=== PATIENT | female | born 1965 | race Caucasian/White ===

== ENCOUNTER 2019-04-09 09:31 | Outpatient (CLI) | payer BC, SELFPAY ==
[2019-04-09 11:51] LABS: Hemoglobin A1C 5.9 % (4.5-6.2)
[2019-04-09 12:04] LABS: Iron 266 ug/dL (50-175); Total Iron Binding Capacity 329 ug/dL (250-450)
[2019-04-09 12:12] LABS: ALT 80 U/L (12-78); AST 46 U/L (15-37); Alkaline Phosphatase 81 U/L (46-116); Anion Gap 11.5 mmol/L (3-11); BUN 11 mg/dL (7-18); Bilirubin, Total 1.6 mg/dL (0.2-1.0); CO2 27.5 mmol/L (21.0-32.0); CREATININE 0.87 mg/dL (0.55-1.02); Calcium 9.5 mg/dL (8.5-10.1); Chloride 99 mmol/L (98-107); Cholesterol 279 mg/dL (50-200); Ferritin 587 ng/mL (8-388); Glucose 109 mg/dL (70-100); HDL Cholesterol 66 mg/dL (40-60); LDL CHOLESTEROL 174 mg/dL (<100); Potassium 3.9 mmol/L (3.5-5.1); Sodium 138 mmol/L (136-145); TSH 0.34 uIU/mL (0.358-3.74); Total Protein 7.3 g/dL (6.4-8.2); Triglyceride 180 mg/dL (30-150)
[2019-04-09 12:35] LABS: FREE T4 1.39 ng/dL (0.76-1.46)
[2019-04-10 10:57] LABS: Transferrin 242 mg/dL (201-352)
== END 2019-04-09 09:51 ==
PROVIDERS: PCP Nurse Practitioner Family; Visit Provider Nurse Practitioner Family
DX: E03.9 Hypothyroidism, unspecified (principal); E78.5 Hyperlipidemia, unspecified; E83.119 Hemochromatosis, unspecified
CPT/HCPCS: 36415; 80053; 80061; 83721; 82728; 83036; 83540; 83550; 84439; 84443; 84466

== ENCOUNTER 2019-07-17 02:43 | Outpatient (CLI) | payer BC, SELFPAY ==
[2019-07-17 12:39] LABS: HCT 48.6 % (36.0-46.0); HGB 16.9 g/dL (12.0-15.5); Mean Corp. HGB Concentration 34.8 g/dL (32.0-36.0); Mean Corpuscular Hemoglobin 35.1 pg (27.0-33.0); Mean Corpuscular Volume 100.8 fL (80-95); Mean Platelet Volume 9.7 fL (8.0-11.0); Platelet Count 298 x1000/uL (130-400); RBC 4.82 m/cumm (4.00-5.20); RBC Distribution Width 12.1 % (11.7-14.6)
[2019-07-17 15:20] LABS: ALT 102 U/L (14-59); AST 69 U/L (15-37); Albumin 3.9 g/dL (3.4-5.0); Alkaline Phosphatase 89 U/L (46-116); Anion Gap 10.2 mmol/L (3-11); BUN 13 mg/dL (7-18); Bilirubin, Total 1.2 mg/dL (0.2-1.0); CO2 27.8 mmol/L (21.0-32.0); CREATININE 0.93 mg/dL (0.55-1.02); Calculated LDL 153 mg/dL; Chloride 100 mmol/L (98-107); Cholesterol 244 mg/dL (50-200); Ferritin 779 ng/mL (8-388); Glucose 122 mg/dL (70-100); HDL Cholesterol 49 mg/dL (40-60); Sodium 138 mmol/L (136-145); Triglyceride 214 mg/dL (30-150)
[2019-07-17 15:43] LABS: FREE T4 1.26 ng/dL (0.76-1.46)
== END 2019-07-17 03:03 ==
PROVIDERS: PCP Nurse Practitioner Family; Visit Provider Nurse Practitioner Family
DX: E03.9 Hypothyroidism, unspecified (principal); E78.5 Hyperlipidemia, unspecified; E83.119 Hemochromatosis, unspecified
CPT/HCPCS: 36415; 80053; 80061; 85027; 82728; 84439; 84443

== ENCOUNTER 2019-07-27 10:23 | Outpatient (RCR) | payer BC, SELFPAY | END 2019-08-17 23:59 | LOC: INF 10:23 | PROVIDERS: PCP Nurse Practitioner Family; Visit Provider Nurse Practitioner Family | DX: E83.119 Hemochromatosis, unspecified (principal) | CPT/HCPCS: 99195 ==

== ENCOUNTER 2019-08-05 07:22 | Outpatient (CLI) | payer BC, SELFPAY ==
[2019-08-05 09:00] LABS: Abs Immature Grans 0.01 k/cumm (0.0-0.09); Absolute Basophil Count 0.07 k/cumm (0.0-0.2); Absolute Eosinophil Count 0.11 k/cumm (0.0-0.7); Absolute Monocyte Count 0.55 k/cumm (0.11-0.7); Basophils % 1.1; Eosinophils % 1.8; HGB 16.8 g/dL (12.0-15.5); Immature Grans % 0.2; Lymphocytes % 32.6; Mean Corp. HGB Concentration 34.3 g/dL (32.0-36.0); Mean Corpuscular Hemoglobin 34.6 pg (27.0-33.0); Mean Platelet Volume 8.9 fL (8.0-11.0); Neutrophils % 55.3; Platelet Count 345 x1000/uL (130-400); RBC 4.85 m/cumm (4.00-5.20); RBC Distribution Width 12.4 % (11.7-14.6); Reticulocyte 2.8 % (0.5-2.4); White Blood Cell Count 6.14 k/cumm (4.4-10.8)
[2019-08-05 09:36] LABS: Iron 269 ug/dL (50-175)
[2019-08-05 09:53] LABS: ALT 119 U/L (14-59); AST 85 U/L (15-37); Albumin 4.3 g/dL (3.4-5.0); Alkaline Phosphatase 90 U/L (46-116); Anion Gap 11.9 mmol/L (3-11); BUN 10 mg/dL (7-18); Bilirubin, Total 1.2 mg/dL (0.2-1.0); CO2 27.1 mmol/L (21.0-32.0); Calcium 9.7 mg/dL (8.5-10.1); Chloride 99 mmol/L (98-107); Ferritin 731 ng/mL (8-388); Glucose 133 mg/dL (70-100); Potassium 4.1 mmol/L (3.5-5.1); Sodium 138 mmol/L (136-145); Total Protein 7.6 g/dL (6.4-8.2)
== END 2019-08-05 07:42 ==
PROVIDERS: PCP Nurse Practitioner Family; Visit Provider Nurse Practitioner Family
DX: E83.119 Hemochromatosis, unspecified (principal)
CPT/HCPCS: 36415; 80053; 82728; 83540; 85025; 85045

== ENCOUNTER 2019-08-20 01:27 | Outpatient (CLI) | payer BC, SELFPAY ==
[2019-08-20 09:41] LABS: Mean Corpuscular Hemoglobin 35.4 pg (27.0-33.0); Mean Platelet Volume 8.8 fL (8.0-11.0); Platelet Count 307 x1000/uL (130-400); RBC 3.96 m/cumm (4.00-5.20); RBC Distribution Width 12.1 % (11.7-14.6); White Blood Cell Count 7.74 k/cumm (4.4-10.8)
[2019-08-20 10:31] LABS: Iron 176 ug/dL (50-175)
[2019-08-20 10:49] LABS: ALT 119 U/L (14-59); AST 90 U/L (15-37); Albumin 3.8 g/dL (3.4-5.0); Alkaline Phosphatase 97 U/L (46-116); Anion Gap 13.2 mmol/L (3-11); BUN 11 mg/dL (7-18); Bilirubin, Total 1.2 mg/dL (0.2-1.0); CO2 25.8 mmol/L (21.0-32.0); CREATININE 1.07 mg/dL (0.55-1.02); Calcium 8.8 mg/dL (8.5-10.1); Chloride 98 mmol/L (98-107); Estimated GFR 53.44 (mL/min/1.73m2); Ferritin 548 ng/mL (8-388); Glucose 270 mg/dL (70-100); Potassium 3.3 mmol/L (3.5-5.1); Sodium 137 mmol/L (136-145); Total Protein 6.9 g/dL (6.4-8.2)
== END 2019-08-20 01:47 ==
PROVIDERS: PCP Nurse Practitioner Family; Visit Provider Nurse Practitioner Family
DX: E83.119 Hemochromatosis, unspecified (principal)
CPT/HCPCS: 36415; 80053; 85027; 82728; 83540

== ENCOUNTER 2019-09-04 00:25 | Outpatient (CLI) | payer BC, SELFPAY ==
[2019-09-04 08:52] LABS: HGB 15.2 g/dL (12.0-15.5); Mean Corp. HGB Concentration 34.5 g/dL (32.0-36.0); Mean Corpuscular Hemoglobin 35.4 pg (27.0-33.0); Mean Corpuscular Volume 102.6 fL (80-95); Mean Platelet Volume 8.5 fL (8.0-11.0); Platelet Count 278 x1000/uL (130-400); RBC 4.29 m/cumm (4.00-5.20); RBC Distribution Width 12.7 % (11.7-14.6); White Blood Cell Count 5.57 k/cumm (4.4-10.8)
[2019-09-04 09:52] LABS: Iron 152 ug/dL (50-175)
[2019-09-04 10:05] LABS: ALT 155 U/L (14-59); AST 144 U/L (15-37); Albumin 3.9 g/dL (3.4-5.0); Alkaline Phosphatase 104 U/L (46-116); Anion Gap 11.6 mmol/L (3-11); BUN 14 mg/dL (7-18); Bilirubin, Total 0.8 mg/dL (0.2-1.0); CO2 27.4 mmol/L (21.0-32.0); CREATININE 0.87 mg/dL (0.55-1.02); Calcium 9.2 mg/dL (8.5-10.1); Chloride 102 mmol/L (98-107); Ferritin 461 ng/mL (8-388); Glucose 139 mg/dL (70-100); Potassium 4.1 mmol/L (3.5-5.1); Sodium 141 mmol/L (136-145); Total Protein 7.2 g/dL (6.4-8.2)
== END 2019-09-04 00:45 ==
PROVIDERS: PCP Nurse Practitioner Family; Visit Provider Nurse Practitioner Family
DX: E83.119 Hemochromatosis, unspecified (principal)
CPT/HCPCS: 36415; 80053; 85027; 82728; 83540

== ENCOUNTER 2019-09-11 08:56 | Outpatient (CLI) | payer BC, SELFPAY ==
[2019-09-11 10:05] LABS: HCT 43.8 % (36.0-46.0); HGB 15.2 g/dL (12.0-15.5); Mean Corp. HGB Concentration 34.7 g/dL (32.0-36.0); Mean Corpuscular Hemoglobin 35.5 pg (27.0-33.0); Mean Corpuscular Volume 102.3 fL (80-95); Mean Platelet Volume 8.9 fL (8.0-11.0); Platelet Count 294 x1000/uL (130-400); RBC 4.28 m/cumm (4.00-5.20); White Blood Cell Count 6.55 k/cumm (4.4-10.8)
[2019-09-11 11:22] LABS: ALT 156 U/L (14-59); AST 115 U/L (15-37); Albumin 3.8 g/dL (3.4-5.0); Alkaline Phosphatase 112 U/L (46-116); Anion Gap 11.9 mmol/L (3-11); BUN 12 mg/dL (7-18); Bilirubin, Total 0.9 mg/dL (0.2-1.0); CO2 27.1 mmol/L (21.0-32.0); CREATININE 0.93 mg/dL (0.55-1.02); Calcium 9.3 mg/dL (8.5-10.1); Chloride 100 mmol/L (98-107); Ferritin 318 ng/mL (8-388); Glucose 177 mg/dL (70-100); Potassium 3.9 mmol/L (3.5-5.1); Sodium 139 mmol/L (136-145); Total Protein 7.1 g/dL (6.4-8.2)
[2019-09-13 11:04] LABS: Hemoglobin A1C 5.6 % (4.5-6.2)
== END 2019-09-11 09:16 ==
PROVIDERS: PCP Nurse Practitioner Family; Visit Provider Nurse Practitioner Family
DX: R73.03 Prediabetes (principal); I10 Essential (primary) hypertension; D64.9 Anemia, unspecified; E03.9 Hypothyroidism, unspecified; E83.119 Hemochromatosis, unspecified; E89.0 Postprocedural hypothyroidism
CPT/HCPCS: 36415; 80053; 85027; 82728; 83036

== ENCOUNTER 2019-09-15 07:30 | Outpatient (RCR) | payer BC, SELFPAY | END 2019-09-17 23:59 | disposition home or self-care (01) | LOC: INF 07:30 | PROVIDERS: PCP Nurse Practitioner Family; Visit Provider Nurse Practitioner Family | DX: E83.119 Hemochromatosis, unspecified (principal) | CPT/HCPCS: 99195 ==

== ENCOUNTER 2019-09-18 00:48 | Outpatient (CLI) | payer BC, SELFPAY ==
[2019-09-18 09:46] LABS: HGB 13.5 g/dL (12.0-15.5); Mean Corp. HGB Concentration 34.6 g/dL (32.0-36.0); Mean Corpuscular Hemoglobin 35.2 pg (27.0-33.0); Mean Corpuscular Volume 101.6 fL (80-95); Platelet Count 325 x1000/uL (130-400); RBC 3.84 m/cumm (4.00-5.20); RBC Distribution Width 11.8 % (11.7-14.6); White Blood Cell Count 6.15 k/cumm (4.4-10.8)
[2019-09-18 11:03] LABS: ALT 163 U/L (14-59); AST 119 U/L (15-37); Albumin 3.8 g/dL (3.4-5.0); Alkaline Phosphatase 99 U/L (46-116); Anion Gap 11.4 mmol/L (3-11); BUN 9 mg/dL (7-18); CO2 27.6 mmol/L (21.0-32.0); CREATININE 0.86 mg/dL (0.55-1.02); Calcium 8.9 mg/dL (8.5-10.1); Chloride 99 mmol/L (98-107); Ferritin 240 ng/mL (8-388); Glucose 161 mg/dL (70-100); Potassium 3.6 mmol/L (3.5-5.1); Sodium 138 mmol/L (136-145); Total Protein 6.7 g/dL (6.4-8.2)
== END 2019-09-18 01:08 ==
PROVIDERS: PCP Nurse Practitioner Family; Visit Provider Nurse Practitioner Family
DX: E83.119 Hemochromatosis, unspecified (principal)
CPT/HCPCS: 36415; 80053; 85027; 82728

== ENCOUNTER 2020-03-11 02:59 | Outpatient (CLI) | payer BC, SELFPAY ==
[2020-03-11 12:07] LABS: HCT 46.1 % (36.0-46.0); HGB 16.6 g/dL (12.0-15.5); Mean Corpuscular Volume 97.3 fL (80-95); Mean Platelet Volume 9.1 fL (8.0-11.0); Platelet Count 258 x1000/uL (130-400); RBC 4.74 m/cumm (4.00-5.20); RBC Distribution Width 12.1 % (11.7-14.6); White Blood Cell Count 10.64 k/cumm (4.4-10.8)
[2020-03-11 14:37] LABS: ALT 315 U/L (14-59); AST 289 U/L (15-37); Albumin 3.8 g/dL (3.4-5.0); Alkaline Phosphatase 133 U/L (46-116); Anion Gap 9.7 mmol/L (3-11); BUN 12 mg/dL (7-18); CO2 27.3 mmol/L (21.0-32.0); CREATININE 0.87 mg/dL (0.55-1.02); Chloride 97 mmol/L (98-107); Ferritin 725 ng/mL (8-252); Glucose 188 mg/dL (74-106); Potassium 3.4 mmol/L (3.5-5.1); Sodium 134 mmol/L (136-145); Total Protein 7.2 g/dL (6.4-8.2)
== END 2020-03-11 03:19 ==
PROVIDERS: PCP Nurse Practitioner Family; Visit Provider Nurse Practitioner Family
DX: E83.119 Hemochromatosis, unspecified (principal)
CPT/HCPCS: 36415; 80053; 85027; 82728

== ENCOUNTER 2020-04-12 07:47 | Outpatient (CLI) | payer BC, SELFPAY ==
--- NOTE | 2020-04-12 08:00 | DI.US_ITS ---
EXAM: ABDOMEN ULTRASOUND CLINICAL HISTORY: ELEVATED LFTS,HEMOCHROMATOSIS, H/O NAFLD, K76.0,E83.119,R79.89 TECHNIQUE: Ultrasound abdomen performed using standard protocol. COMPARISON: US ABDOMEN ULTRASOUND (P) from 08/29/2012 FINDINGS: LIVER: The liver is mildly enlarged and shows increased echogenicity, consistent with fatty infiltrat ion. No focal liver lesions are seen.. GALLBLADDER: No evidence of cholelithiasis. No evidence of wall thickening. No pericholecystic fluid identified. KIDNEYS: Kidneys are symmetric in size. No evidence of renal calculi. No evidence of hydronephrosis. No renal mass or cyst identified. BILIARY SYSTEM: No intrahepatic or extrahepatic biliary ductal dilation. AGARWAL'S SIGN: Negative. PANCREAS: Normal where visualized. SPLEEN: Not enlarged. ABDOMINAL AORTA AND IVC: Visualized portions normal caliber. ASCITES: None seen. IMPRESSION: Mildly enlarged fatty liver. No evidence of cholelithiasis.. DATA REPOSITORY:
== END 2020-04-12 08:07 ==
PROVIDERS: PCP Nurse Practitioner; Visit Provider Nurse Practitioner Family
DX: K76.0 Fatty (change of) liver, not elsewhere classified (principal); E83.119 Hemochromatosis, unspecified; R94.5 Abnormal results of liver function studies
CPT/HCPCS: 76700

== ENCOUNTER 2020-04-15 02:55 | Outpatient (RCR) | payer BC, SELFPAY ==
[2020-03-25 13:17] LABS: Abs Immature Grans 0.02 k/cumm (0.0-0.09); Absolute Basophil Count 0.08 k/cumm (0.0-0.2); Absolute Eosinophil Count 0.15 k/cumm (0.0-0.7); Absolute Lymphocyte Count 3.17 k/cumm (1.2-3.4); Absolute Monocyte Count 0.95 k/cumm (0.11-0.7); Absolute Neutrophil Count 5.33 k/cumm (1.2-6.7); Basophils % 0.8; Eosinophils % 1.5; HCT 41.3 % (36.0-46.0); HGB 14.7 g/dL (12.0-15.5); Immature Grans % 0.2 %; Lymphocytes % 32.7; Mean Corp. HGB Concentration 35.6 g/dL (32.0-36.0); Mean Corpuscular Hemoglobin 35.3 pg (27.0-33.0); Mean Corpuscular Volume 99.3 fL (80-95); Mean Platelet Volume 9.2 fL (8.0-11.0); Monocytes % 9.8; Platelet Count 332 x1000/uL (130-400); RBC 4.16 m/cumm (4.00-5.20); RBC Distribution Width 12.2 % (11.7-14.6)
[2020-03-25 13:41] LABS: ALT 242 U/L (14-59); AST 218 U/L (15-37); Albumin 3.8 g/dL (3.4-5.0); Alkaline Phosphatase 118 U/L (46-116); Anion Gap 10.2 mmol/L (3-11); BUN 15 mg/dL (7-18); Bilirubin, Total 1.2 mg/dL (0.2-1.0); CO2 28.8 mmol/L (21.0-32.0); CREATININE 0.83 mg/dL (0.55-1.02); Calcium 8.9 mg/dL (8.5-10.1); Chloride 97 mmol/L (98-107); Ferritin 394 ng/mL (8-252); Glucose 120 mg/dL (74-106); Sodium 136 mmol/L (136-145); Total Protein 7.5 g/dL (6.4-8.2)
[2020-03-25 13:51] LABS: Potassium 2.9 mmol/L (3.5-5.1)
[2020-04-01 13:17] LABS: Abs Immature Grans 0.01 k/cumm (0.0-0.09); Absolute Eosinophil Count 0.25 k/cumm (0.0-0.7); Absolute Lymphocyte Count 2.89 k/cumm (1.2-3.4); Absolute Monocyte Count 0.74 k/cumm (0.11-0.7); Basophils % 1.1; Eosinophils % 2.8; HCT 40.2 % (36.0-46.0); Immature Grans % 0.1 %; Lymphocytes % 31.8; Mean Corp. HGB Concentration 34.8 g/dL (32.0-36.0); Mean Corpuscular Hemoglobin 35.2 pg (27.0-33.0); Mean Platelet Volume 9.2 fL (8.0-11.0); Monocytes % 8.1; Neutrophils % 56.1; Platelet Count 304 x1000/uL (130-400); RBC 3.98 m/cumm (4.00-5.20); RBC Distribution Width 12.3 % (11.7-14.6); White Blood Cell Count 9.09 k/cumm (4.4-10.8)
[2020-04-01 13:39] LABS: ALT 241 U/L (14-59); AST 262 U/L (15-37); Albumin 3.9 g/dL (3.4-5.0); Alkaline Phosphatase 135 U/L (46-116); BUN 12 mg/dL (7-18); CREATININE 0.86 mg/dL (0.55-1.02); Calcium 9.7 mg/dL (8.5-10.1); Chloride 100 mmol/L (98-107); Ferritin 227 ng/mL (8-252); Glucose 133 mg/dL (74-106); Potassium 3.4 mmol/L (3.5-5.1); Sodium 138 mmol/L (136-145); Total Protein 7.5 g/dL (6.4-8.2)
[2020-04-15 13:06] LABS: Abs Immature Grans 0.01 k/cumm (0.0-0.09); Absolute Eosinophil Count 0.16 k/cumm (0.0-0.7); Absolute Lymphocyte Count 2.99 k/cumm (1.2-3.4); Absolute Monocyte Count 0.81 k/cumm (0.11-0.7); Basophils % 1.2; Eosinophils % 1.9; HCT 41.3 % (36.0-46.0); HGB 14.2 g/dL (12.0-15.5); Immature Grans % 0.1 %; Lymphocytes % 36.2; Mean Corp. HGB Concentration 34.4 g/dL (32.0-36.0); Mean Corpuscular Hemoglobin 34.4 pg (27.0-33.0); Mean Platelet Volume 9.2 fL (8.0-11.0); Monocytes % 9.8; Neutrophils % 50.8; Platelet Count 310 x1000/uL (130-400); RBC 4.13 m/cumm (4.00-5.20); RBC Distribution Width 11.9 % (11.7-14.6); White Blood Cell Count 8.27 k/cumm (4.4-10.8)
[2020-04-15 13:33] LABS: ALT 259 U/L (14-59); AST 246 U/L (15-37); Albumin 3.9 g/dL (3.4-5.0); Alkaline Phosphatase 107 U/L (46-116); BUN 13 mg/dL (7-18); Bilirubin, Total 1.3 mg/dL (0.2-1.0); CREATININE 0.88 mg/dL (0.55-1.02); Calcium 9.5 mg/dL (8.5-10.1); Chloride 101 mmol/L (98-107); Ferritin 92 ng/mL (8-252); Glucose 158 mg/dL (74-106); Potassium 3.2 mmol/L (3.5-5.1); Sodium 137 mmol/L (136-145); Total Protein 7.4 g/dL (6.4-8.2)
== END 2020-04-17 23:59 | disposition home or self-care (01) ==
LOC: INF 02:55
PROVIDERS: PCP Nurse Practitioner; Visit Provider Nurse Practitioner Family
DX: E83.119 Hemochromatosis, unspecified (principal)
CPT/HCPCS: 36415; 80053; 99195; 82728; 85025

== ENCOUNTER 2020-05-13 04:22 | Outpatient (RCR) | payer BC, SELFPAY ==
[2020-05-13 13:13] LABS: Abs Immature Grans 0.02 k/cumm (0.0-0.09); Absolute Basophil Count 0.09 k/cumm (0.0-0.2); Absolute Lymphocyte Count 3.22 k/cumm (1.2-3.4); Absolute Monocyte Count 0.82 k/cumm (0.11-0.7); Absolute Neutrophil Count 3.94 k/cumm (1.2-6.7); Basophils % 1.1; Eosinophils % 2.4; HCT 44.7 % (36.0-46.0); HGB 15.5 g/dL (12.0-15.5); Immature Grans % 0.2 %; Lymphocytes % 38.8; Mean Corp. HGB Concentration 34.7 g/dL (32.0-36.0); Mean Corpuscular Hemoglobin 33.9 pg (27.0-33.0); Mean Corpuscular Volume 97.8 fL (80-95); Mean Platelet Volume 9.5 fL (8.0-11.0); Monocytes % 9.9; Neutrophils % 47.6; Platelet Count 303 x1000/uL (130-400); RBC 4.57 m/cumm (4.00-5.20); RBC Distribution Width 11.9 % (11.7-14.6); White Blood Cell Count 8.29 k/cumm (4.4-10.8)
[2020-05-13 13:49] LABS: ALT 200 U/L (14-59); AST 159 U/L (15-37); Alkaline Phosphatase 111 U/L (46-116); Anion Gap 9.6 mmol/L (3-11); BUN 14 mg/dL (7-18); Bilirubin, Total 1.2 mg/dL (0.2-1.0); CO2 28.4 mmol/L (21.0-32.0); CREATININE 0.95 mg/dL (0.55-1.02); Calcium 10.1 mg/dL (8.5-10.1); Calculated LDL 155 mg/dL (<100); Chloride 99 mmol/L (98-107); Cholesterol 233 mg/dL (<200); Ferritin 58 ng/mL (8-252); Glucose 120 mg/dL (74-106); HDL Cholesterol 33 mg/dL (40-60); Potassium 3.2 mmol/L (3.5-5.1); Sodium 137 mmol/L (136-145); Total Protein 7.7 g/dL (6.4-8.2); Triglyceride 227 mg/dL (<150)
[2020-05-13 14:05] LABS: FREE T4 1.61 ng/dL (0.76-1.46)
== END 2020-05-17 23:59 | disposition home or self-care (01) ==
LOC: INF 04:22
PROVIDERS: PCP Nurse Practitioner Family; Visit Provider Nurse Practitioner Family
DX: E83.119 Hemochromatosis, unspecified (principal)
CPT/HCPCS: 36415; 80053; 80061; 82728; 84439; 84443; 85025

== ENCOUNTER 2020-06-10 04:34 | Outpatient (RCR) | payer BC, SELFPAY ==
[2020-06-10 13:14] LABS: Abs Immature Grans 0.02 k/cumm (0.0-0.09); Absolute Basophil Count 0.06 k/cumm (0.0-0.2); Absolute Eosinophil Count 0.21 k/cumm (0.0-0.7); Absolute Monocyte Count 0.71 k/cumm (0.11-0.7); Absolute Neutrophil Count 4.06 k/cumm (1.2-6.7); Basophils % 0.7; Eosinophils % 2.5; HCT 45.4 % (36.0-46.0); HGB 15.9 g/dL (12.0-15.5); Immature Grans % 0.2 %; Lymphocytes % 38.7; Mean Corpuscular Hemoglobin 33.4 pg (27.0-33.0); Mean Corpuscular Volume 95.4 fL (80-95); Mean Platelet Volume 9.1 fL (8.0-11.0); Monocytes % 8.6; Neutrophils % 49.3; Platelet Count 324 x1000/uL (130-400); RBC 4.76 m/cumm (4.00-5.20); RBC Distribution Width 12.1 % (11.7-14.6); White Blood Cell Count 8.26 k/cumm (4.4-10.8)
[2020-06-10 13:39] LABS: ALT 199 U/L (14-59); AST 131 U/L (15-37); Albumin 3.7 g/dL (3.4-5.0); Alkaline Phosphatase 124 U/L (46-116); Anion Gap 11.4 mmol/L (3-11); BUN 7 mg/dL (7-18); Bilirubin, Total 0.6 mg/dL (0.2-1.0); CO2 26.6 mmol/L (21.0-32.0); CREATININE 0.94 mg/dL (0.55-1.02); Calcium 8.6 mg/dL (8.5-10.1); Chloride 97 mmol/L (98-107); Ferritin 57 ng/mL (8-252); Glucose 244 mg/dL (74-106); Potassium 3.2 mmol/L (3.5-5.1); Sodium 135 mmol/L (136-145); Total Protein 7.3 g/dL (6.4-8.2)
== END 2020-06-17 23:59 | disposition home or self-care (01) ==
LOC: INF 04:34
PROVIDERS: PCP Nurse Practitioner Family; Visit Provider Nurse Practitioner Family
DX: E83.119 Hemochromatosis, unspecified (principal)
CPT/HCPCS: 36415; 80053; 82728; 85025

== ENCOUNTER 2020-08-12 04:37 | Outpatient (RCR) | payer BC, SELFPAY ==
[2020-08-19 13:34] LABS: Abs Immature Grans 0.02 10^3/uL (0.0-0.06); Absolute Basophil Count 0.03 10^3/uL (0.0-0.2); Absolute Lymphocyte Count 1.01 10^3/uL (1.2-3.4); Absolute Monocyte Count 0.54 10^3/uL (0.1-0.8); Absolute Neutrophil Count 4.87 10^3/uL (1.2-6.7); Basophils % 0.5; Eosinophils % 1.5; HCT 42.3 % (36.0-46.0); HGB 14.8 g/dL (11.2-15.7); Immature Grans % 0.3; Lymphocytes % 15.4; MCH 33.6 pg (27.0-33.0); MCV 95.9 fL (80-95); MPV 9.7 fL (8.0-11.0); Monocytes % 8.2; Neutrophils % 74.1; Nucleated RBC 0 %; Platelet Count 163 10^3/uL (130-400); RBC 4.41 10^6/uL (3.93-5.22); RDW 11.2 % (11.7-14.6); RDW-SD 39.7 fL; WBC 6.57 10^3/uL (4.4-10.8)
[2020-08-19 13:45] LABS: ALT 41 U/L (14-59); AST 35 U/L (15-37); Albumin 3.4 g/dL (3.4-5.0); Alkaline Phosphatase 170 U/L (46-116); BUN 12 mg/dL (7-18); Bilirubin, Total 0.4 mg/dL (0.2-1.0); CREATININE 1.01 mg/dL (0.55-1.02); Calcium 8.6 mg/dL (8.5-10.1); Chloride 103 mmol/L (98-107); Estimated GFR 56.91 (mL/min/1.73m2); Glucose 98 mg/dL (74-106); Potassium 3.6 mmol/L (3.5-5.1); Sodium 138 mmol/L (136-145); Total Protein 6.5 g/dL (6.4-8.2)
[2020-08-19 14:11] LABS: Ferritin 176 ng/mL (8-252)
== END 2020-08-17 12:56 | disposition home or self-care (01) ==
LOC: INF 04:37
PROVIDERS: PCP Nurse Practitioner Family; Visit Provider Nurse Practitioner Family
DX: E83.119 Hemochromatosis, unspecified (principal)
CPT/HCPCS: 36415; 80053; 99195; 82728; 85025

== ENCOUNTER 2020-09-09 05:59 | Outpatient (RCR) | payer BC, SELFPAY ==
[2020-09-09 14:56] LABS: HCT 41.6 % (36.0-46.0); HGB 14.7 g/dL (11.2-15.7); MCH 34.8 pg (27.0-33.0); MCHC 35.3 % (32.0-36.0); MCV 98.3 fL (80-95); MPV 9.4 fL (8.0-11.0); Platelet Count 254 10^3/uL (130-400); RBC 4.23 10^6/uL (3.93-5.22); RDW 12.6 % (11.7-14.6); RDW-SD 45.4 fL; WBC 7.91 10^3/uL (4.4-10.8)
[2020-09-09 15:27] LABS: ALT 182 U/L (14-59); AST 120 U/L (15-37); Albumin 3.5 g/dL (3.4-5.0); Alkaline Phosphatase 165 U/L (46-116); Anion Gap 9.3 mmol/L (3-11); BUN 11 mg/dL (7-18); Bilirubin, Total 0.7 mg/dL (0.2-1.0); CO2 27.7 mmol/L (21.0-32.0); CREATININE 1.01 mg/dL (0.55-1.02); Calcium 8.5 mg/dL (8.5-10.1); Chloride 98 mmol/L (98-107); Estimated GFR 56.91 (mL/min/1.73m2); Ferritin 113 ng/mL (8-252); Glucose 357 mg/dL (74-106); Potassium 3.1 mmol/L (3.5-5.1); Sodium 135 mmol/L (136-145)
== END 2020-09-17 23:59 | disposition home or self-care (01) ==
LOC: INF 05:59
PROVIDERS: PCP Nurse Practitioner Family; Visit Provider Nurse Practitioner Family
DX: E83.119 Hemochromatosis, unspecified (principal)
CPT/HCPCS: 80053; 85027; 82728

== ENCOUNTER 2020-09-09 12:46 | Outpatient (RCR) | payer BC, SELFPAY ==
[2020-08-26 10:10] LABS: HCT 41.7 % (36.0-46.0); HGB 14.9 g/dL (11.2-15.7); MCH 34.4 pg (27.0-33.0); MCHC 35.7 % (32.0-36.0); MCV 96.3 fL (80-95); MPV 9.5 fL (8.0-11.0); Platelet Count 259 10^3/uL (130-400); RBC 4.33 10^6/uL (3.93-5.22); RDW 12.9 % (11.7-14.6); WBC 8.09 10^3/uL (4.4-10.8)
[2020-08-26 10:28] LABS: Ferritin 671 ng/mL (8-252)
[2020-08-31 10:39] LABS: Abs Immature Grans 0.01 10^3/uL (0.0-0.06); Absolute Basophil Count 0.09 10^3/uL (0.0-0.2); Absolute Eosinophil Count 0.15 10^3/uL (0.0-0.7); Absolute Lymphocyte Count 2.49 10^3/uL (1.2-3.4); Absolute Monocyte Count 0.62 10^3/uL (0.1-0.8); Absolute Neutrophil Count 3.53 10^3/uL (1.2-6.7); Basophils % 1.3; Eosinophils % 2.2; HGB 14.9 g/dL (11.2-15.7); Immature Grans % 0.1; Lymphocytes % 36.1; MCH 33.6 pg (27.0-33.0); MCHC 34.7 % (32.0-36.0); MCV 97.1 fL (80-95); MPV 9.6 fL (8.0-11.0); Neutrophils % 51.3; Nucleated RBC 0 %; Platelet Count 273 10^3/uL (130-400); RBC 4.43 10^6/uL (3.93-5.22); RDW 12.9 % (11.7-14.6); RDW-SD 46.2 fL; WBC 6.89 10^3/uL (4.4-10.8)
[2020-08-31 10:42] LABS: ALT 211 U/L (14-59); AST 164 U/L (15-37); Albumin 3.7 g/dL (3.4-5.0); Alkaline Phosphatase 142 U/L (46-116); Anion Gap 10.6 mmol/L (3-11); BUN 11 mg/dL (7-18); Bilirubin, Total 1.1 mg/dL (0.2-1.0); CO2 28.4 mmol/L (21.0-32.0); CREATININE 0.91 mg/dL (0.55-1.02); Calcium 9.1 mg/dL (8.5-10.1); Chloride 97 mmol/L (98-107); Ferritin 274 ng/mL (8-252); Glucose 277 mg/dL (74-106); Potassium 3.3 mmol/L (3.5-5.1); Sodium 136 mmol/L (136-145); Total Protein 7.4 g/dL (6.4-8.2)
== END 2020-09-17 12:47 | disposition home or self-care (01) ==
LOC: INF 12:46
PROVIDERS: PCP Nurse Practitioner Family; Visit Provider Nurse Practitioner Family
DX: E83.119 Hemochromatosis, unspecified (principal)
CPT/HCPCS: 36415; 80053; 85027; 99195; 82728; 85025

== ENCOUNTER 2020-09-26 01:21 | Outpatient (RCR) | payer BC, SELFPAY ==
[2020-09-26 12:11] LABS: ALT 189 U/L (14-59); AST 162 U/L (15-37); Albumin 3.8 g/dL (3.4-5.0); Alkaline Phosphatase 121 U/L (46-116); Anion Gap 11.9 mmol/L (3-11); BUN 13 mg/dL (7-18); Bilirubin, Total 1.5 mg/dL (0.2-1.0); CO2 27.1 mmol/L (21.0-32.0); CREATININE 1.03 mg/dL (0.55-1.02); Calcium 9.3 mg/dL (8.5-10.1); Chloride 97 mmol/L (98-107); Estimated GFR 55.63 (mL/min/1.73m2); Ferritin 140 ng/mL (8-252); Glucose 295 mg/dL (74-106); Potassium 3.1 mmol/L (3.5-5.1); Sodium 136 mmol/L (136-145); Total Protein 7.6 g/dL (6.4-8.2)
== END 2020-10-17 23:59 | disposition home or self-care (01) ==
LOC: INF 01:21
PROVIDERS: PCP Nurse Practitioner Family; Visit Provider Nurse Practitioner Family
DX: E83.119 Hemochromatosis, unspecified (principal)
CPT/HCPCS: 36415; 80053; 82728

== ENCOUNTER 2020-10-21 04:35 | Outpatient (RCR) | payer BC, SELFPAY ==
[2020-10-21 15:08] LABS: Abs Immature Grans 0.02 10^3/uL (0.0-0.06); Absolute Basophil Count 0.09 10^3/uL (0.0-0.2); Absolute Eosinophil Count 0.23 10^3/uL (0.0-0.7); Absolute Lymphocyte Count 2.63 10^3/uL (1.2-3.4); Absolute Monocyte Count 0.66 10^3/uL (0.1-0.8); Absolute Neutrophil Count 4.02 10^3/uL (1.2-6.7); Basophils % 1.2; HCT 43.6 % (36.0-46.0); HGB 15.2 g/dL (11.2-15.7); Immature Grans % 0.3; Lymphocytes % 34.4; MCHC 34.9 % (32.0-36.0); MCV 100.5 fL (80-95); MPV 9.5 fL (8.0-11.0); Monocytes % 8.6; Neutrophils % 52.5; Nucleated RBC 0 %; Platelet Count 238 10^3/uL (130-400); RBC 4.34 10^6/uL (3.93-5.22); RDW 11.7 % (11.7-14.6); RDW-SD 43.1 fL; WBC 7.65 10^3/uL (4.4-10.8)
[2020-10-21 15:32] LABS: ALT 172 U/L (14-59); AST 123 U/L (15-37); Albumin 3.6 g/dL (3.4-5.0); Alkaline Phosphatase 139 U/L (46-116); Anion Gap 5.5 mmol/L (3-11); BUN 15 mg/dL (7-18); CO2 29.5 mmol/L (21.0-32.0); CREATININE 1.04 mg/dL (0.55-1.02); Calcium 8.5 mg/dL (8.5-10.1); Chloride 98 mmol/L (98-107); Estimated GFR 55.02 (mL/min/1.73m2); Ferritin 168 ng/mL (8-252); Glucose 276 mg/dL (74-106); Potassium 3.3 mmol/L (3.5-5.1); Sodium 133 mmol/L (136-145)
[2020-10-21 15:43] LABS: Iron 137 ug/dL (50-170); Total Iron Binding Capacity 364 ug/dL (250-450); Transferrin Sat 38 % (15-50)
[2020-10-21 15:45] LABS: Hemoglobin A1C 8.5 % (<5.7)
== END 2020-11-17 23:59 | disposition home or self-care (01) ==
LOC: INF 04:35
PROVIDERS: Internal Medicine Medical Oncology; PCP Nurse Practitioner Family; Visit Provider Nurse Practitioner Family
DX: E83.119 Hemochromatosis, unspecified (principal)
CPT/HCPCS: 36415; 80053; 85027; 82728; 83036; 83540; 83550; 85025

== ENCOUNTER 2020-10-28 12:16 | Outpatient (REF) | payer BC, SELFPAY ==
[2020-10-28 13:54] LABS: Magnesium 1.9 mg/dL (1.8-2.4)
== END 2020-10-28 12:36 ==
LOC: LBN 12:16
PROVIDERS: PCP Nurse Practitioner Family; Visit Provider Nurse Practitioner Family
DX: R25.2 Cramp and spasm (principal)
CPT/HCPCS: 83735

== ENCOUNTER 2020-11-01 03:38 | Outpatient (CLI) | payer BC, SELFPAY ==
--- NOTE | 2020-11-01 14:00 | NS.NUTBLAN_ITS ---
Idalia was referred to Medical Nutrition Therapy for newly diagnosed type 2 diabetes. Most recent A1c: 8.5% indicating averaging blood sugars> 180 mg/dl which is related to diabetic complications. Idalia has a PMH: of non alcoholic fatty liver disease with elevated liver enzymes, COPD, HTN and hyperlipidemia. She has a strong family hx of Dm2. She reports recent weight gain of 20 lbs, now with BMI of 31. She started taking metformin 3 days ago (500 mg BID) and reports GI discomfort initially but now feeling fine. Fasting sugar today was 190 mg, post prandial after dinner has been running 150-160 mg/dl. Suspect, metformin has not had enough time to alter blood sugars. Diet recall indicates well balanced meals, typically avoids simple carbs however does drink 2 glasses wine at night. Encouraged Idalia to continue to take BS as recommended and to bring blood sugar log to MD at next visit. Idalia presents with metabolic syndrome with elevated BMI, elevated BS, elevated lipids and elevated HTN putting her at high risk for CAD. Intervention: Provided education on DM including Hyper/hypoglycemia s/s with action plan for each scenario. Definition and types of CHO with examples, CHO counting, DASH diet materials, DM meal planning and label reading literature. Provided a blood sugar and food record chart and materials to reiterate CHO counting techniques. Reviewed desirable BG levels with patient with food choices and portions for optimal outcomes. Provided contact information for this RD and encouraged to call with any f/u questions r/t to DM self management. Encouraged Idalia to log her meals on [employer] and to increase exercise to 30 min cardio 5-6 times weekly with goal weight loss of 10 lbs in next 90 days. No follow up planned at this time. Idalia will reach out via phone/email prn. 30 min face to face
== END 2020-11-01 03:58 ==
PROVIDERS: PCP Nurse Practitioner Family; Visit Provider Dietitian, Registered
DX: E11.9 Type 2 diabetes mellitus without complications (principal); I10 Essential (primary) hypertension; E78.5 Hyperlipidemia, unspecified; Z71.3 Dietary counseling and surveillance
CPT/HCPCS: 97802

== ENCOUNTER 2021-01-05 21:24 | Outpatient (REF) | payer BC, SELFPAY ==
[2021-01-05 21:41] LABS: Anion Gap 9.9 mmol/L (3-11); BUN 14 mg/dL (7-18); CO2 27.1 mmol/L (21.0-32.0); CREATININE 0.7 mg/dL (0.55-1.02); Calcium 9.7 mg/dL (8.5-10.1); Chloride 101 mmol/L (98-107); Glucose 114 mg/dL (74-106); Potassium 3.9 mmol/L (3.5-5.1); Sodium 138 mmol/L (136-145)
== END 2021-01-05 21:25 | disposition home or self-care (01) ==
LOC: LBN 21:24
PROVIDERS: PCP Nurse Practitioner Family; Visit Provider Nurse Practitioner Family
DX: I10 Essential (primary) hypertension (principal)
CPT/HCPCS: 80048

== ENCOUNTER 2021-02-02 20:18 | Outpatient (REF) | payer BC, SELFPAY ==
[2021-02-02 21:06] LABS: COMMENT (LAB VIEW ONLY) 70.45 mg/dL; Microalb ug/mg Crea 5.1 ug/mg Cr
== END 2021-02-02 20:19 | disposition home or self-care (01) ==
LOC: LBN 20:18
PROVIDERS: PCP Nurse Practitioner Family; Visit Provider Nurse Practitioner Family
DX: E11.9 Type 2 diabetes mellitus without complications (principal)
CPT/HCPCS: 82043; 82570

== ENCOUNTER 2022-09-05 02:17 | Outpatient (CLI) | payer BC, SELFPAY ==
[2022-09-05 07:52] LABS: HGB 15.2 g/dL (11.2-15.7); MCH 36.1 pg (27.0-33.0); MCHC 36.2 % (32.0-36.0); MCV 100 fL (80-95); Platelet Count 437 10^3/uL (130-400); RBC 4.21 10^6/uL (3.93-5.22); RDW-SD 44.5 fL; WBC 8.59 10^3/uL (4.4-10.8)
[2022-09-05 08:09] LABS: Hemoglobin A1C 6.5 % (<5.7)
[2022-09-05 08:21] LABS: ALT 98 U/L (14-59); AST 60 U/L (15-37); Albumin 3.9 g/dL (3.4-5.0); Alkaline Phosphatase 83 U/L (46-116); Anion Gap 10.8 mmol/L (3-11); BUN 10 mg/dL (7-18); Bilirubin, Total 0.9 mg/dL (0.2-1.0); CO2 25.2 mmol/L (21.0-32.0); CREATININE 0.9 mg/dL (0.55-1.02); Calcium 9.3 mg/dL (8.5-10.1); Calculated LDL 131 mg/dL (<100); Chloride 99 mmol/L (98-107); Cholesterol 204 mg/dL (<200); Estimated GFR 74.57 (mL/min/1.73m2); Glucose 136 mg/dL (74-106); HDL Cholesterol 48 mg/dL (40-60); Potassium 3.9 mmol/L (3.5-5.1); Sodium 135 mmol/L (136-145); TSH (W/Ref FT4) 0.92 uIU/mL (0.36-3.74); Total Protein 7.7 g/dL (6.4-8.2); Triglyceride 129 mg/dL (<150)
[2022-09-05 08:27] LABS: COMMENT (LAB VIEW ONLY) 81.88 mg/dL; Microalb ug/mg Crea 7.9 ug/mg Cr
== END 2022-09-05 02:18 | disposition home or self-care (01) ==
LOC: LBO 02:17
PROVIDERS: PCP Nurse Practitioner Family; Visit Provider Family Medicine
DX: E11.9 Type 2 diabetes mellitus without complications (principal); E78.5 Hyperlipidemia, unspecified; I10 Essential (primary) hypertension; K75.81 Nonalcoholic steatohepatitis (NASH); E03.9 Hypothyroidism, unspecified
CPT/HCPCS: 36415; 80053; 80061; 85027; 82043; 82570; 83036; 84443

== ENCOUNTER 2023-05-24 08:18 | Outpatient (REF) | payer BC, SELFPAY ==
--- NOTE | 2023-05-24 07:30 | PAPFT_PTH ---
PATIENT: Idalia Yoo LOC: [facility] U#:[id number] AGE/SX: 58/F ROOM: RE05/24/[address]: CAROL De León : 1965 BED: DIS: 05/24/2023 SPEC #: [id number] RECD: 05/24/23 13:18 STATUS: DELFINA REChristine #: [id number] MERRY: 05/24/23 07:[address]: Piedad Cates DEPT: [facility], [facility] Cytology RECD BY: Jackie Rust Tissues: 1 - CX/ENDOCX FOR PAP SMEARS Procedures: PAP THIN PREP/UVM Screening HPV DNA PROBE Comments: [id number]
--- OUTSIDE RECORDS SUMMARY | 2023-05-24 08:20 | XMS_ITS | Continuity of Care Document ---
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[employer] Name Role Phone KATHI GOVEA Primary Care Physician [phone] Encounter [facility] FIN NBR [id number] Date(s): 09/11/22 - 09/11/[address] [id number] Discharge Disposition: Home or Self Care Attending Physician: Davis Puentes MD Admitting Physician: Davis Puentes MD Allergies, Adverse Reactions, Alerts Substance Reaction Severity Status penicillin Unknown Unknown Active sulfa drugs Unknown Unknown Active contrast media (iodine-based) Wheal Unknown Active Assessment and Plan Future Appointments Medications [facility] [place], USE FOR BLOOD SUGAR MONITORING, 0 Refill(s) Start Date: 09/10/22 Status: Ordered Albuterol (Eqv-ProAir HFA) 90 mcg/inh inhalation aerosol 8 g, INHALE TWO PUFFS BY MOUTH EVERY 6 HOURS NEEDED FOR FOR SHORTNESS OF BREATH OR WHEEZING, 0 Refill(s) Start Date: 09/10/22 Status: Ordered hydroCHLOROthiazide 0 Refill(s) Start Date: 08/21/22 Status: Ordered hydroCHLOROthiazide 25 mg oral tablet 90 EA, TAKE ONE TABLET BY MOUTH EVERY DAY, 0 Refill(s) Start Date: 09/10/22 Status: Ordered ibuprofen 600 mg oral tablet 600 mg = 1 tab, Oral, every 6 hr, # 40 tab, 0 Refill(s) Start Date: 08/21/22 Status: Ordered levothyroxine 100 mcg (0.1 mg) oral tablet 90 EA, TAKE ONE TABLET BY MOUTH EVERY DAY, 0 Refill(s) Start Date: 09/10/22 Status: Ordered lisinopril 10 mg oral tablet 90 EA, TAKE ONE TABLET BY MOUTH EVERY DAY, 0 Refill(s) Start Date: 09/10/22 Status: Ordered metFORMIN 500 mg oral tablet 90 EA, TAKE ONE TABLET BY MOUTH EVERY DAY, 0 Refill(s) Start Date: 09/10/22 Status: Ordered Potassium Chloride (Eqv-K-Tab) 0 Refill(s) Start Date: 09/10/22 Status: Ordered rosuvastatin 5 mg oral tablet 90 EA, TAKE ONE TABLET BY MOUTH DAILY, 0 Refill(s) Start Date: 09/10/22 Status: Ordered Problem List Condition Confirmation Course Effective Dates Status H ealth Status Informant Arthritis Confirmed Active Asthma Confirmed Active Derangement of knee Confirmed Active 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 Hypertension Confirmed Active Hypothyroidism Confirmed Active Joint pain Confirmed Active Procedures Procedure Date Related Diagnosis Body Site Status Arthroscopy of knee with med ial and lateral meniscectomy 08/30/19 Completed Ablation 1 Completed Appendectomy Completed Discectomy Completed 1x2 Results Radiology Reports * Exam Date Time Procedure Performing Provider Status 09/11/22 9:28 AM XR Knee Complete 4+ Views Right Giorgi Davies (Verified) Notes: (XR Knee Complete 4+ Views Right) Reason For Exam: Right knee pain XR Knee Complete 4+ Views Right EXAM DESCRIPTION: XR Knee Complete 4+ Views Right 09/11/2022 INDICATION: RIGHT KNEE PAIN COMPARISON: 09/16/2018 IMPRESSION: No acute fracture or dislocation. No significant regional arthritic changes No focal lytic or sclerotic lesion Mild regional vascular calcification. JOB #: [id number] Final Signed by: Koby Paredes MD Signed (Electronic Signature): 09/11/2022 9:39 am Social History Social History Type Response Tobacco Current everyday tob acco user Tobacco Use:. Sex Female XR Knee - right GE 4 Views * Koby Paredes MD: VERIFY, VERIFY Event Display: Report EXAM DESCRIPTION: XR Knee Complete 4+ Views Right 09/11/2022 INDICATION: RIGHT KNEE PAIN COMPARISON: 09/16/2018 IMPRESSION: No acute fracture or dislocation. No significant regional arthritic changes No focal lytic or sclerotic lesion Mild regional vascular calcification. JOB #: [id number] Final Signed by: Koby Paredes MD Signed (Electronic Signature): 09/11/2022 9:39 am Patient Care team information Personnel Name: KATHI GOVEA Address: Address: [address] [place] [id number]
--- OUTSIDE RECORDS SUMMARY | 2023-05-24 08:20 | XMS_ITS | Continuity of Care Document ---
Author Name Unknown Organization [facility] Address [address] [place] [address] Care Team Providers Care Tire Trucker Name Role Phone KATHI GOVEA Primary Care Physician Encounter [facility] FIN NBR [id number] Date(s): 08/21/22 - 08/21/22 [facility] [address] [place] [address]- Encounter Diagnosis Right shoulder strain(Discharge Diagnosis) - 08/21/22 Discharge Disposition: Home-No Follow Up Attending Physician: Collin Doss MD Admitting Physician: Collin Doss MD Allergies, Adverse Reactions, Alerts Substance Reaction Severity Status sulfa drugs Moderate Active Medications hydroCHLOROthiazide 0 Refill(s) Start Date: 08/21/22 Status: Ordered ibuprofen 600 mg oral tablet 600 mg = 1 tab, Oral, every 6 hr, # 40 tab, 0 Refill(s) Start Date: 08/21/22 Status: Ordered levothyroxine 0 Refill(s) Start Date: 08/21/22 Status: Ordered metFORMIN 0 Refill(s) Start Date: 08/21/22 Status: Ordered Results Radiology Reports * Exam Date Time Procedure Performing Provider Status 08/21/22 12:09 PM XR Shoulder Complete 2+ Views Right DomainUser, Generated; Auth (Verified) Notes: (XR Shoulder Complete 2+ Views Right) Reason For Exam: fall injury, pain over humeral head XR Shoulder Complete 2+ Views Right EXAM DESCRIPTION: XR Shoulder Complete 2+ Views Right three views 08/21/2022 INDICATION: FALL INJURY, PAIN OVER HUMERAL HEAD COMPARISON: None IMPRESSION: No acute fracture or dislocation Mild AC joint arthritic changes with mild joint space narrowing No focal lytic or sclerotic lesion. JOB #: [id number] Final Signed by: Koby Paredes MD Signed (Electronic Signature): 08/21/2022 12:21 pm Vital Signs Most recent to oldest [Reference Range]: 1 Temperature Tympanic [36.6-37.9 Deg C] 3 6.6 Deg C (08/21/22 10:56 AM) Peripheral Pulse Rate [60-100 bpm] 100 b pm (08/21/22 10:56 AM) Respiratory Rate [12-24 br/min] 20 br/mi n (08/21/22 10:56 AM) Weight Dosing 81.00 kg (08/21/22 11:09 AM) Weight Estimated 81.00 kg (08/21/22 10:56 AM) Height/Length Dosing 167.000 cm (08/21/22 11:09 AM) Height/Length Estimated 167.000 cm (08/21/22 10:56 AM) Social History Social History Type Response Tobacco Current everyday tob acco user Tobacco Use:. Sex Hospital Discharge Instructions Patient Education 08/21/2022 12:04:35 Shoulder Range of Motion Exercises Shoulder Range of Motion Exercises Shoulder range of motion (ROM) exercises are done to keep the shoulder moving freely or to increasemovement. They are often recommended for people who have shoulder pain or stiffness or who are recovering from a shoulder surgery. Phase 1 exercises When you are able, do this exercise 1???2 times per day for 30???60 seconds in each direction, or as directed by your health care provider. Pendulum exercise To do this exercise while sittin. Sit in a chair or at the edge of your bed with your feet flat on the floor. 2. Let your affected arm hang down in front of you over the edge of the bed or chair. 3. Relax your shoulder, arm, and hand. 4. Rock your body so your arm gently swings in small circles. You can also use your unaffected arm to start the motion. 5. Repeat changing the direction of the circles, swinging your arm left and right, and swinging your arm forward and back. To do this exercise while standin. Stand next to a sturdy chair or table, and hold on to it with your hand on your unaffected side. 2. Bend forward at the waist. 3. Bend your knees slightly. 4. Relax your shoulder, arm, and hand. 5. While keeping your shoulder relaxed, use body motion to swing your arm in small circles. 6. Repeat changing the direction of the circles, swinging your arm left and right, and swinging your arm forward and back. 7. Between exercises, stand up tall and take a short break to relax your lower back. Phase 2 exercises Do these exercises 1???2 times per day or as told by your health care provider. Hold each stretch for 30 seconds, and repeat 3 times. Do the exercises with one or both arms as instructed by your health care provider. For these exercises, sit at a table with your hand and arm supported by the table. A chair that slides easily or has wheels can be helpful. External rotation 1. Turn your chair so that your affected side is nearest to the table. 2. Place your forearm on the table to your side. Bend your elbow about 90?? at the elbow (right angle) and place your hand palm facing down on the table. Your elbow should be about 6 inches away fromyour side. 3. Keeping your arm on the table, lean your body forward. Abduction 1. Turn your chair so that your affected side is nearest to the table. 2. Place your forearm and hand on the table so that your thumb points toward the ceiling and your arm is straight out to your side. 3. Slide your hand out to the side and away from you, using your unaffected arm to do the work. 4. To increase the stretch, you can slide your chair away from the table. Flexion: forward stretch 1. Sit facing the table. Place your hand and elbow on the table in front of you. 2. Slide your hand forward and away from you, using your unaffected arm to do the work. 3. To increase the stretch, you can slide your chair backward. Phase 3 exercises Do these exercises 1???2 times per day or as told by your health care provider. Hold each stretch for 30 seconds, and repeat 3 times. Do the exercises with one or both arms as instructed by your health care provider. Cross-body stretch: posterior capsule stretch 1. Lift your arm straight out in front of you. 2. Bend your arm 90?? at the elbow (right angle) so your forearm moves across your body. 3. Use your other arm to gently pull the elbow across your body, toward your other shoulder. Wall climbs 1. Stand with your affected arm extended out to the side with your hand resting on a door frame. 2. Slide your hand slowly up the door frame. 3. To increase the stretch, step through the door frame. Keep your body upright and do not lean. Wand exercises You will need a cane, a piece of PVC pipe, or a sturdy wooden dowel for wand exercises. Flexion To do this exercise while standin. Hold the wand with both of your hands, palms down. 2. Using the other arm to help, lift your arms up and over your head, if able. 3. Push upward with your other arm to gently increase the stretch. To do this exercise while lying down: 1. Lie on your back with your elbows resting on the floor and the wand in both your hands. Your hands will be palm down, or pointing toward your feet. 2. Lift your hands toward the ceiling, using your unaffected arm to help if needed. 3. Bring your arms overhead as able, using your unaffected arm to help if needed. Internal rotation 1. Stand while holding the wand behind you with both hands. Your unaffected arm should be extended above your head with the arm of the affected side extended behind you at the level of your waist. The wand should be pointing straight up and down as you hold it. 2. Slowly pull the wand up behind your back by straightening the elbow of your unaffected arm and bending the elbow of your affected arm. External rotation 1. Lie on your back with your affected upper arm supported on a small pillow or rolled towel. When you first do this exercise, keep your upper arm close to your body. Over time, bring your arm up to a 90?? angle out to the side. 2. Hold the wand across your stomach and with both hands palm up. Your elbow on your affected side should be bent at a 90?? angle. 3. Use your unaffected side to help push your forearm away from you and toward the floor. Keep yourelbow on your affected side bent at a 90?? angle. Contact a health care provider if you have: ??? New or increasing pain. ??? New numbness, tingling, weakness, or discoloration in your arm or hand. This information is not intended to replace advice given to you by your health care provider. Make sure you discuss any questions you have with your health care provider. Document Revised: 12/17/2018 Document Reviewed: 12/17/2018 [employer] Patient Education ?? 2021 [employer] 08/21/2022 12:04:24 How to Use a Sling How to Use a Sling A sling is a type of hanging bandage that is worn around the neck to protect an injured arm, shoulder, or other body part. A sling may be needed to prevent movement of (to immobilize) the injured body part while it heals. Keeping the injured body part still can lessen pain and speed up healing. A health care provider may recommend using a sling: ??? To treat a broken arm or collarbone. ??? To treat a shoulder or elbow injury. ??? After upper extremity surgery. What are the risks? In general, wearing a sling helps with safe healing. However, in some cases, wearing a sling the wrong way can: ??? Make the injury worse. ??? Cause soreness, stiffness, or numbness. ??? Affect blood flow (circulation) in the arm and hand. This can cause tingling or numbness in thefingers or hands. How to use a sling Follow instructions from your health care provider about how and when to wear your sling. Your health care provider will show you or tell you: ??? How to put on the sling. ??? How to adjust the sling. ??? When and how often to wear the sling. ??? How to remove the sling. The way that you need to use a sling depends on your injury. Unless your health care provider givesyou different instructions, you should: ??? Wear the sling so that your elbow bends to the shape of a capital letter L (90 degrees, or a right angle). ??? Make sure the sling supports your elbow, wrist, and hand. ??? Adjust the sling if your fingers or hand start to tingle or feel numb. Follow these instructions at home: ??? Try to avoid moving your arm. ??? Do not twist, lift, or move your arm in a way that could make your injury worse. ??? Do not lean on your arm while wearing a sling. ??? Do not lift anything with the hand or arm that is in the sling. Contact a health care provider if: ??? You have bruising, swelling, or pain that gets worse. ??? You have pain that does not get better with medicine. ??? You have a fever. ??? Your sling is not supporting your arm properly. ??? Your sling gets damaged. Get help right away if: ??? You have numbness or tingling in your fingers. ??? You notice that your fingers turn blue or feel cold to the touch. ??? You cannot control bleeding from your injury. ??? You have shortness of breath. These symptoms may represent a serious problem that is an emergency. Do not wait to see if the symptoms will go away. Get medical help right away. Call your local emergency services (911 in the [place] Do not drive yourself to the hospital. Summary ??? A sling is a type of hanging bandage that is worn around the neck to protect an injured arm, shoulder, or other body part. A sling may be needed to prevent movement of (to immobilize) the injuredbody part while it heals. ??? The way that you use a sling depends on your injury. Carefully follow instructions from your health care provider. ??? Wear the sling so that your arm bends 90 degrees (at a right angle) at the elbow. That is like the shape of a capital letter L. ??? Make sure you know which problems should cause you to contact your health care provider or get help right away. This information is not intended to replace advice given to you by your health care provider. Make sure you discuss any questions you have with your health care provider. Document Revised: 12/20/2021 Document Reviewed: 12/20/2021 [employer] Patient Education ?? 2021 [employer] 08/21/2022 12:04:08 Muscle Strain Muscle Strain A muscle strain is an injury that occurs when a muscle is stretched beyond its normal length. Usually, a small number of muscle fibers are torn when this happens. There are three types of muscle strains. First-degree strains have the least amount of muscle fiber tearing and the least amount of pain. Second-degree and third-degree strains have more tearing and pain. Usually, recovery from muscle strain takes 1???2 weeks. Complete healing normally takes 5???6 weeks. What are the causes? This condition is caused when a sudden, violent force is placed on a muscle and stretches it too far. This may occur with a fall, while lifting, or during sports. What increases the risk? This condition is more likely to develop in athletes and people who are physically active. What are the signs or symptoms? Symptoms of this condition include: ??? Pain. ??? Tenderness. ??? Bruising. ??? Swelling. ??? Trouble using the muscle. How is this diagnosed? This condition is diagnosed based on a physical exam and your medical history. Tests may also be done, including an X-ray, ultrasound, or MRI. How is this treated? This condition is initially treated with HAIRSTON therapy. This therapy involves: ??? Protecting the muscle from being injured again. ??? Resting the injured muscle. ??? Icing the injured muscle. ??? Applying pressure (compression) to the injured muscle. This may be done with a splint or elastic bandage. ??? Raising (elevating) the injured muscle. Your health care provider may also recommend medicine for pain. Follow these instructions at home: If you have a removable splint: ??? Wear the splint as told by your health care provider. Remove it only as told by your health care provider. ??? Check the skin around the splint every day. Tell your health care provider about any concerns. ??? Loosen the splint if your fingers or toes tingle, become numb, or turn cold and blue. ??? Keep the splint clean. ??? If the splint is not waterproof: ??? Do not let it get wet. ??? Cover it with a watertight covering when you take a bath or a shower. Managing pain, stiffness, and swelling ??? If directed, put ice on the injured area. To do this: ??? If you have a removable splint, remove it as told by your health care provider. ??? Put ice in a plastic bag. ??? Place a towel between your skin and the bag. ??? Leave the ice on for 20 minutes, 2???3 times a day. ??? Remove the ice if your skin turns bright red. This is very important. If you cannot feel pain, heat, or cold, you have a greater risk of damage to the area. ??? Move your fingers or toes often to reduce stiffness and swelling. ??? Raise (elevate) the injured area above the level of your heart while you are sitting or lying down. ??? Wear an elastic bandage as told by your health care provider. Make sure that it is not too tight. General instructions ??? Take [id number] and prescription medicines only as told by your health care provider. Treatment may include muscle relaxants or medicines for pain and inflammation that are taken by mouth or applied to the skin. ??? Restrict your activity and rest the injured muscle as told by your health care provider. Gentlemovements may be allowed. ??? If physical therapy was prescribed, do exercises as told by your health care provider. ??? Do not put pressure on any part of the splint until it is fully hardened. This may take severalhours. ??? Do not use any products that contain nicotine or tobacco. These products include cigarettes, chewing tobacco, and vaping devices, such as e-cigarettes. If you need help quitting, ask your health care provider. ??? Ask your health care provider when it is safe to drive if you have a splint. ??? Keep all follow-up visits. This is important. How is this prevented? Warm up before exercising. This helps to prevent future muscle strains. Contact a health care provider if: ??? You have more pain or swelling in the injured area. Get help right away if: ??? You have numbness or tingling in the injured area. ??? You lose a lot of strength in the injured area. Summary ??? A muscle strain is an injury that occurs when a muscle is stretched beyond its normal length. ??? This condition is caused when a sudden, violent force is placed on a muscle and stretches it too far. ??? This condition is initially treated with HAIRSTON therapy, which involves protecting, resting, icing, compressing, and elevating. ??? Gentle movements may be allowed. If physical therapy was prescribed, do exercises as told by your health care provider. This information is not intended to replace advice given to you by your health care provider. Make sure you discuss any questions you have with your health care provider. Document Revised: 01/22/2022 Document Reviewed: 01/22/2022 [employer] Patient Education ?? 2021 [employer] Follow Up Care 08/21/2022 10:56:23 With:KATHI GOVEA Address: [address] [place] [id number]- When:5 to 7 days Comments:if not improving XR Shoulder - right GE 2 Views * Koby Paredes MD: VERIFY, VERIFY Event Display: Report EXAM DESCRIPTION: XR Shoulder Complete 2+ Views Right three views 08/21/2022 INDICATION: FALL INJURY, PAIN OVER HUMERAL HEAD COMPARISON: None IMPRESSION: No acute fracture or dislocation Mild AC joint arthritic changes with mild joint space narrowing No focal lytic or sclerotic lesion. JOB #: [id number] Final Signed by: Koby Paredes MD Signed (Electronic Signature): 08/21/2022 12:21 pm Patient Care team information Personnel Name: KATHI GOVEA Address: Address: [address] [place] [id number] [place]
--- OUTSIDE RECORDS SUMMARY | 2023-05-24 08:20 | XMS_ITS | Continuity of Care Document ---
Author Name Unknown Organization [facility] Address [address] [place] [address] Care Team Providers Care Cabin Agent Name Role Phone KATHI GOVEA Primary Care Physician [phone] Encounter [facility] NBR [id number] Date(s): 09/11/22 - 09/11/22 [facility] [address] [place] [address]- Encounter Diagnosis Loose body of right knee(Discharge Diagnosis) - 09/11/22 Unilateral primary osteoarthritis, right knee(Discharge Diagnosis) - 09/11/22 Discharge Disposition: Home or Self Care Attending Physician: Davis Puentes MD Allergies, Adverse Reactions, Alerts Substance Reaction Severity Status penicillin Unknown Unknown Active sulfa drugs Unknown Unknown Active contrast media (iodine-based) Wheal Unknown Active Assessment and Plan Future Appointments Functional Status 09/11/22 Other exposure to Infectious Disease Non e Medications [facility] Prescription 3 EA, USE FOR BLOOD SUGAR [...] 1 Completed Appendectomy Completed Discectomy Completed 1x2 Vital Signs Most recent to oldest [Reference Range]: 1 Peripheral Pulse Rate [60-100 bpm] 95 bp m (09/11/22 9:35 AM) Blood Pressure [90-140/60-90 mmHg] 138/8 8mmHg (09/11/22 9:35 AM) Weight 81.65 kg (09/11/22 9:35 AM) Weight Measured (lbs) 180.007 lb (09/11/22 9:35 AM) Height 167.64 cm (09/11/22 9:35 AM) Height/Length Measured (inches) 66 inch (09/11/22 9:35 AM) BSA Measured 1.95 m2 (09/11/22 9:35 AM) Body Mass Index 29.05 kg/m2 (09/11/22 9:35 AM) Social History Social History Type Response Tobacco Current everyday tob acco user Tobacco Use:. Sex Female Hospital Discharge Instructions Follow Up Care 08/22/2022 14:34:00 With:Follow up with Orthopedic Address: When:Within 6 Week(s) Patient Care team information Personnel Name: KATHI GOVEA Address: Address: [address] [place] [id number] [place]
== END 2023-05-24 08:19 | disposition home or self-care (01) ==
LOC: LBN 08:18
PROVIDERS: PCP Nurse Practitioner Family; Visit Provider Nurse Practitioner Family
DX: Z12.4 Encounter for screening for malignant neoplasm of cervix (principal); Z11.51 Encounter for screening for human papillomavirus (HPV)
CPT/HCPCS: 88142; 87624

== ENCOUNTER 2023-05-27 00:50 | Outpatient (CLI) | payer BC, SELFPAY ==
--- NOTE | 2023-05-27 08:57 | DI.RAD_ITS ---
Exam(s) XR CERVICAL SPINE COMP 4-5V EXAM: XR CERVICAL SPINE COMP 4-5V CLINICAL HISTORY: neck pain,s/p discectomy,m54.2,z98.890. TECHNIQUE: 2D digital imaging was performed. COMPARISON: No exams were available for comparison FINDINGS: Five views. No evidence of fracture, listhesis, nor offset of the spinal laminar line. There is an anterior fusion plate extending from C 5 through C7 with successful fusion at these level s. This plate is secured by 2 screws at each level. No hardware loosening. There is mild disc spac e narrowing at C4-5 level. Degenerative change noted in the facet joints but no facet malalignment. No cervical ribs evident. IMPRESSION: Multilevel fusion. Some degenerative disc disease at C4-5 1 level above the fusion. Calcification noted in soft tissues right side of the neck which may be within atheromatous plaque. If clinically indicated follow-up carotid Doppler can be performed to determine if there is significa nt stenosis at this level. DATA REPOSITORY: RADIATION DOSE DELIVERED:
== END 2023-05-27 01:10 ==
LOC: DI 00:50
PROVIDERS: PCP Nurse Practitioner Family; Visit Provider Nurse Practitioner Family
DX: M50.321 Other cervical disc degeneration at C4-C5 level (principal); Z98.890 Other specified postprocedural states
CPT/HCPCS: 72050

== ENCOUNTER 2023-06-06 02:40 | Outpatient (CLI) | payer BC, SELFPAY ==
[2023-06-06] MEDS: Albuterol HFA 18 GM 200 PUFF INH IH (11:54)
[2023-06-06] MEDS: Inhaler, Assist Device 1 EACH MC (11:54)
--- NOTE | 2023-06-07 09:19 | W.PFT ---
Date of service: 06/06/23 Time of Service: 10:05 Pulmonary Function Test Result Indications: COPD Interpretation Spirometry: There is no airflow limitation. There is no significant bronchodilator response. Lung Volumes: Normal lung volumes Diffusion Capacity: Normal diffusion. Airway Pressure: Normal airways resistance. Impression Normal pulmonary function testing. Clinical Correlation therefore is recommended.
== END 2023-06-06 02:41 | disposition home or self-care (01) ==
LOC: RT 02:40
PROVIDERS: PCP Nurse Practitioner Family; Visit Provider Nurse Practitioner Family
DX: J44.9 Chronic obstructive pulmonary disease, unspecified (principal)
CPT/HCPCS: 94060; 94726; 94729

== ENCOUNTER 2023-10-02 09:21 | Outpatient (CLI) | payer BC, SELFPAY ==
[2023-10-02 13:00] LABS: ALT 142 U/L (14-59); AST 205 U/L (15-37); Albumin 4.1 g/dL (3.4-5.0); Alkaline Phosphatase 188 U/L (46-116); Anion Gap 11.5 mmol/L (3-11); BUN 5 mg/dL (7-18); Bilirubin, Total 2.6 mg/dL (0.2-1.0); CO2 26.5 mmol/L (21.0-32.0); CREATININE 0.8 mg/dL (0.55-1.02); Calcium 9.9 mg/dL (8.5-10.1); Calculated LDL 123 mg/dL (<100); Chloride 94 mmol/L (98-107); Cholesterol 208 mg/dL (<200); Estimated GFR 85.35 (mL/min/1.73m2); Glucose 211 mg/dL (74-106); HDL Cholesterol 70 mg/dL (40-60); Potassium 3.9 mmol/L (3.5-5.1); Sodium 132 mmol/L (136-145); TSH (W/Ref FT4) 1.48 uIU/mL (0.36-3.74); Total Protein 8.2 g/dL (6.4-8.2); Triglyceride 77 mg/dL (<150)
[2023-10-03 11:23] LABS: Hepatitis C Ab w Rflx HCV PCR Negative (Negative)
== END 2023-10-02 09:22 | disposition home or self-care (01) ==
LOC: LOS 09:22
PROVIDERS: PCP Nurse Practitioner Family; Referring Provider Nurse Practitioner Family; Visit Provider Nurse Practitioner Family
DX: E11.9 Type 2 diabetes mellitus without complications (principal); K70.10 Alcoholic hepatitis without ascites; K75.81 Nonalcoholic steatohepatitis (NASH); Z00.00 Encounter for general adult medical examination without abnormal findings
CPT/HCPCS: 36415; 80053; 80061; 86803; 84443

== ENCOUNTER 2024-09-01 01:26 | Outpatient (CLI) | payer BC, SELFPAY ==
--- NOTE | 2024-09-01 12:30 | DI.US_ITS ---
APPROVED REPORT EXAM: Comprehensive 2D, Doppler, and color-flow Echocardiogram Patient Location: In-Patient Roll Over Loader: Emily Muniz RDCS (AE) Indications: Murmur Other Information Study Quality: Adequate Conclusion Normal left ventricular wall thickness and chamber size. Ejection fraction is 60%. Wall motion is n ormal Normal right ventricular size and function Both atria are normal in size There is no structural or hemodynamically significant valvular disease Ascending aorta measures 3.38 cm Wall motion Left Ventricle The left ventricle is normal size. The left ventricular systolic function is normal. The left ventric ular ejection fraction is within the normal range. There is normal left ventricular wall thickness. T here is normal LV segmental wall motion. There is no ventricular septal defect visualized. LVEF is 60 %. Right Ventricle The right ventricle is normal size. The right ventricular systolic function is normal. Atria The left atrium size is normal. The right atrium size is normal. The interatrial septum is intact wit h no evidence for an atrial septal defect. Aortic Valve The aortic valve is normal in structure. Aortic valve is trileaflet. There is no aortic valvular sten osis. No aortic regurgitation is present. Mitral Valve The mitral valve is normal in structure. No evidence of mitral valve stenosis. Trace mitral regurgita tion. Tricuspid Valve The tricuspid valve is normal in structure. There is no tricuspid valve stenosis. Trace tricuspid reg urgitation. Unable to assess PA pressure. Pulmonic Valve The pulmonary valve is normal in structure. There is no pulmonic valvular stenosis. There is no pulmo jackelin valvular regurgitation. Great Vessels The aortic root is normal in size. The ascending aorta is mildly dilated. Aortic arch is not well vis ualized. IVC is normal in size and collapses >50% with inspiration. Pericardium There is no pericardial effusion. 2D Dimensions IVSD d PLAX 0.81 cm F: 0.6-1.0 Ao Root d 2.90 cm F: 2.7 - 3.3 LVPW d PLAX 0.83 cm F: 0.6 - 1.0 Ao Asc Diam d 3.38 cm F: 2.3 - 3.1 LVID d PLAX 4.72 cm F: 3.8 - 5.2 LVDs 3.28 cm F: 2.2 - 3.5 LV EF Teichholz 58.0 % FS 30.54 % LV EDV (Teich) 103.2 mL LV ESV (Teich) 43.4 mL M-Mode TAPSE 3.07 cm (M/F) >1.7 Auto EF LV EDV A4C 116.1 mL LV EDV A2C 94.6 mL LV EDV BP 105.1 mL LV ESV A4C 45.2 mL LV ESV A2C 37.3 mL LV ESV BP 41.0 mL LVEF(%) A4C 61.1 % LVEF(%) A2C 60.6 % LVEF(%) BP 61.0 % LV SV A4C 70.9 ml LV SV A2C 57.3 ml LV SV BP 64.2 ml LV CO A4C 5.2 L/min LV CO A2C 4.2 L/min LV CO BP 4.7 L/min HR A4C 73.78 BPM HR A2C 73.59 BPM LV EDV Index (BP) LA Volume LA Length A4C 5.7 cm LA Length A2C 5.2 cm LA Area A4C s 20.36 cm2 LA Area A2C s 19.13 cm2 LA Vol A4C A-L 61.32 mL LA Vol A2C A-L 60.03 mL LA Vol Biplane A-L 63.9 mL LA Vol/BSA A4C A-L LA Vol/BSA A2C A-L LA Vol/BSA BP A-L 33.4 mL/m2 LA Vol A4C MOD 56.3 mL LA Vol A2C MOD 55.2 mL LA Vol BP MOD 58.6 mL RA Volume RA Area A4C 15.4 cm2 RA ESV A4C (A-L) 39.2mL RA Vol/BSA A4C A-L RA Length A4C 5.1 cm RA ESV A4C (MOD) 36.6mL LV Diastology MV E' medial 0.104 (>0.07 m/s) MV E Vmax 0.72 (0.4-1.3 m/s) MV E/E' MED 7.00 (<14) MV A Vmax 0.65 (0.4-1.3 m/s) MV E' lateral 0.118 (>0.1 m/s) E/A Ratio 1.1 MV E/E' LAT 6.15 (<14) MV E' Average 0.111 m/s MV E/E'(average) 6.55 Aortic Valve AoV Vmax 1.58 m/s LVOT Vmax 1.41 m/s AoV Peak Grad 10.0 mmHg LVOT Peak Grad 8.0 mmHg AoV Area (Vmax) 2.48 cm2 LVOT VTI 0.318 m AoV VTI 0.400 m LVOT Mean Grad 4.2 mmHg AoV Mean Arian. 1.13 m/s LVOT SV 88.49 mL AoV Mean Grad 5.7 mmHg LVOT Diam s 1.85 cm AoV Area (VTI) 2.21 cm2 AV Regurg Peak Gr. 10.05 mmHg Velocity Ratio 0.89 Mitral Valve MV DT 153 (160-240 msec) MV Vmax TIPS 0.72 m/s MV Mean Grad 1.1 (<2mmHg) MV VTI 0.196 m Pulmonary Valve PV Vmax 0.99 (0.5-1.5 m/s) RVOT Vmax 0.87 m/s PV Peak Grad 3.9 mmHg RVOT Peak Gr. 3.1 mmHg PV Mean Arian 0.67 m/s RVOT VTI 0.201 m PV Mean Grad 2.0 mmHg RVOT Mean Gr. 1.6 mmHg Tricuspid Valve RA Pressure 3.00 mmHg TV S' 0.17 m/s
== END 2024-09-01 01:46 ==
LOC: DI 01:27
PROVIDERS: PCP Nurse Practitioner Family; Visit Provider Nurse Practitioner Family
DX: R01.1 Cardiac murmur, unspecified (principal)
CPT/HCPCS: 93306

== ENCOUNTER 2024-09-08 02:02 | Outpatient (CLI) | payer BC, SELFPAY ==
[2024-09-08 09:05] LABS: HCT 39.6 % (36.0-46.0); HGB 14.4 g/dL (11.2-15.7); MCH 35.1 pg (27.0-33.0); MCHC 36.4 % (32.0-36.0); MCV 97 fL (80-95); MPV 8.6 fL (8.0-11.0); Platelet Count 164 10^3/uL (130-400); RDW 11.8 % (11.7-14.6); RDW-SD 41.9 fL; WBC 6.57 10^3/uL (4.4-10.8)
[2024-09-08 10:11] LABS: ALT 59 U/L (14-59); AST 64 U/L (15-37); Albumin 3.7 g/dL (3.4-5.0); Alkaline Phosphatase 157 U/L (46-116); Anion Gap 13.7 mmol/L (3-11); BUN 7 mg/dL (7-18); Bilirubin, Total 1.78 mg/dL (0.2-1.0); CO2 24.3 mmol/L (21.0-32.0); CREATININE 0.9 mg/dL (0.55-1.02); Calcium 9.6 mg/dL (8.5-10.1); Calculated LDL 84 mg/dL (<100); Chloride 96 mmol/L (98-107); Cholesterol 163 mg/dL (<200); Estimated GFR 73.64 (mL/min/1.73m2); Glucose 151 mg/dL (74-106); HDL Cholesterol 61 mg/dL (40-60); Magnesium 1.6 mg/dL (1.8-2.4); Sodium 134 mmol/L (136-145); TSH (W/Ref FT4) 1.15 uIU/mL (0.36-3.74); Total Protein 7.5 g/dL (6.4-8.2); Triglyceride 93 mg/dL (<150); Vitamin B12 1003 pg/mL (193-986)
== END 2024-09-08 02:03 | disposition home or self-care (01) ==
LOC: LBO 02:02
PROVIDERS: PCP Nurse Practitioner Family; Visit Provider Nurse Practitioner Family
DX: Z00.00 Encounter for general adult medical examination without abnormal findings (principal); G62.9 Polyneuropathy, unspecified; F10.10 Alcohol abuse, uncomplicated; I10 Essential (primary) hypertension; E78.5 Hyperlipidemia, unspecified; E11.9 Type 2 diabetes mellitus without complications; E03.9 Hypothyroidism, unspecified; M19.90 Unspecified osteoarthritis, unspecified site; M54.50 Low back pain, unspecified; F17.210 Nicotine dependence, cigarettes, uncomplicated
CPT/HCPCS: 36415; 80053; 80061; 85027; 82607; 83735; 84443

== ENCOUNTER 2024-12-17 17:26 | Outpatient (REF) | payer BC, SELFPAY ==
[2024-12-17 16:59] LABS: COMMENT (LAB VIEW ONLY) 167.15 mg/dL; Microalb ug/mg Crea 5.3 ug/mg Cr
== END 2024-12-17 17:27 | disposition home or self-care (01) ==
LOC: LBN 17:26
PROVIDERS: PCP Nurse Practitioner Family; Visit Provider Nurse Practitioner Family
DX: E11.9 Type 2 diabetes mellitus without complications (principal)
CPT/HCPCS: 82043; 82570

== ENCOUNTER 2025-02-11 02:45 | Outpatient (CLI) | payer BC, SELFPAY ==
[2025-02-11 13:02] LABS: TSH (W/Ref FT4) 1.37 uIU/mL (0.36-3.74)
== END 2025-02-11 02:46 | disposition home or self-care (01) ==
PROVIDERS: PCP Nurse Practitioner Family; Visit Provider Nurse Practitioner Adult Health
DX: R53.83 Other fatigue (principal)
CPT/HCPCS: 36415; 84443

== ENCOUNTER 2025-03-01 00:56 | Outpatient (CLI) | payer BC, SELFPAY ==
--- NOTE | 2025-03-01 07:15 | DI.MRI_ITS ---
Exam(s) MR BRAIN WO EXAM: MR BRAIN WO CLINICAL HISTORY: head injury with new daily headaches,imbalance,r51.9,S09.90XA TECHNIQUE: Multiplanar multisequence MRI of the brain was performed. COMPARISON: CT CT HEAD WO from 12/21/2024 FINDINGS: CEREBRAL PARENCHYMA: There is a small area of signal abnormality measuring 9 by 7 mm in the most anterior aspect of the ri ght frontal lobe within the right anterior cranial fossa, specifically within the anterior aspect of the superior frontal gyrus/gyrus rectus. Given the history, there does not appear to be signal abnor mality consistent with hemorrhage at this level. T1 hypointense and T2 hyperintense. There is some mild surrounding white matter edema. There is no significant focal signal abnormality in the cerebellar hemispheres nor within the maulik, m idbrain, and thalami. There is no abnormal signal abnormality in the periventricular white matter. There is no significant focal signal abnormality evident on diffusion imaging to suggest acute ischem ic event. PITUITARY GLAND: No mass nor parasellar abnormality. No obvious abnormality in the cavernous sinuses. FLOW VOIDS: The expected flow void are noted. No evidence of obvious aneurysm nor obvious vascular ma lformation. PARANASAL SINUSES: The visualized paranasal sinuses appear unremarkable. No obvious finding ORBITS: No obvious findings. IMPRESSION: There is a significant area of signal abnormality in the most anterior inferior aspect of the right f rontal lobe (gyrus rectus) measuring approximately 9 x 7 mm and with some mild surrounding white kathy er edema. No evidence of acute hemorrhage and no restricted diffusion evident at this level. It is bright on ADC mapping. Recommend close follow-up. Repeat sequences following IV contrast injection may add specificity. DATA REPOSITORY:
--- NOTE | 2025-03-01 07:15 | DI.MRI_ITS ---
Exam(s) MR CERVICAL SPINE WO EXAM: MR CERVICAL SPINE WO CLINICAL HISTORY: hx ACDF C5-7, head trauma, imbalance,R26.89,S09.90XA TECHNIQUE: Multiplanar multisequence MRI of the cervical spine was performed without intravenous con trast. COMPARISON: MR MRI - CERVICAL SPINE WO CONT from 05/07/2012 CR XR CERVICAL SPINE COMP 4-5V from 05/27/2023 FINDINGS: BONES: There has been previous anterior fusion at C5 through C7. Vertebral body heights are maintain ed. Alignment is normal. Bone marrow signal intensity is within normal limits. CERVICAL CORD: Craniovertebral junction is unremarkable. The cervical cord is normal size and signal intensity. SOFT TISSUES: Unremarkable. C2-3: No disc herniation or bulge is identified. Facet degenerative changes cause mild rightneural foraminal narrowing. No significant central canal stenosis. C3-4: No significant disc bulging. No focal disc herniation. Facet degenerative changes cause moder ate right and mild left neural foraminal narrowing. No significant central canal stenosis. C4-5: There is a large central disc protrusion which impresses upon the cervical cord and causes mode rate central canal stenosis. No abnormal cord signal in this area. C5-6: Anterior fusion. No disc herniation or bulge is identified. No evidence of neural foraminal n arrowing. No significant central canal stenosis. C6-7: Anterior fusion. No disc herniation or bulge is identified. No evidence of neural foraminal na rrowing. No significant central canal stenosis. C7-T1: Moderate loss of disc height. Small endplate osteophytes. Facet degenerative changes combine with the endplate osteophytes to produce mild right and moderate to severe left neural foraminal remington rowing. No significant central canal stenosis. IMPRESSION: Large central disc protrusion at C4-5 impinging on the cervical cord and causing moderate central can al stenosis. Endplate osteophytes and facet degenerative changes cause neural foraminal narrowing as described abo ve. DATA REPOSITORY:
== END 2025-03-01 01:16 ==
LOC: DI 00:57
PROVIDERS: PCP Nurse Practitioner Family; Visit Provider Nurse Practitioner Adult Health
DX: S09.90XA Unspecified injury of head, initial encounter (principal); R26.89 Other abnormalities of gait and mobility; R51.9 Headache, unspecified; M50.021 Cervical disc disorder at C4-C5 level with myelopathy; M99.61 Osseous and subluxation stenosis of intervertebral foramina of cervical region; R93.89 Abnormal findings on diagnostic imaging of other specified body structures; X58.XXXA Exposure to other specified factors, initial encounter
CPT/HCPCS: 70551; 72141

== ENCOUNTER 2025-03-11 09:36 | Outpatient (CLI) | payer BC, SELFPAY ==
--- NOTE | 2025-03-11 14:30 | DI.MRI_ITS ---
Exam(s) MR BRAIN WO/W EXAM: MR BRAIN WO/W CLINICAL HISTORY: f/u abnormal brain MRI, R90.89 TECHNIQUE: Multiplanar multisequence MRI of the brain was performed. Both noninfused and contrast i nfused sequences were performed. IV Contrast injected was 17 cc Dotarem. COMPARISON: CT CT HEAD WO from 12/21/2024 MR MR BRAIN WO from 03/01/2025 FINDINGS: CEREBRAL PARENCHYMA: The previously described small air signal abnormality in the most anterior aspec t of the right frontal lobe is again noted and appears unchanged on conventional sequences when christina red to the 1st study of 03/01/25. There is no restricted diffusion at this level. It is bright on AD C map. There is no significant enhancement at this level following contrast injection. There are no ring e nhancing lesions in the brain. No new findings elsewhere in the brain.. There is no significant focal signal abnormality in the cerebellar hemispheres nor within the maulik, m idbrain, and thalami. There is no new abnormal signal abnormality in the periventricular white matter. DWI: No areas of restricted diffusion to suggest acute ischemic event. SWI: No microhemorrhages evident. There are no ring enhancing lesions in the brain. There is no abnormal meningeal enhancement. PITUITARY GLAND: No mass nor parasellar abnormality. No obvious abnormality in the cavernous sinuses. FLOW VOIDS: The expected flow void are noted. No evidence of obvious aneurysm nor obvious vascular ma lformation. No evidence of venous sinus thrombosis. PARANASAL SINUSES: The visualized paranasal sinuses appear unremarkable. ORBITS: No obvious abnormal findings. IMPRESSION: Area of abnormal signal without enhancement nor restricted diffusion in the anteromedial right fronta l lobe along the anterior aspect of the right gyrus rectus. This is not changed since the MRI scan of 03/01/2025. Findings are consistent with an area of encephalomalacia, as opposed to a lesion at this level. Correlation with any prior history of trauma which may have resulted in frontal lobe contusio n progressing to encephalomalacia is recommended. Recommend follow-up MRI in 6 months to ensure stability DATA REPOSITORY:
[2025-03-11] MEDS: Normal Saline Flush 10 ML SYR IVP (15:07)
[2025-03-11] MEDS: Gadoterate meglumine 20 ML SYRINGE 17 ML IVP (15:07)
--- NOTE | 2025-03-11 16:35 | DI.VRAD_ITS ---
PROCEDURE INFORMATION: Exam: MR Head Without and With Contrast Exam date and time: 03/11/2025 3:16 PM Age: 59 years old Clinical indication: F/u abnormal brain mri, frontal lobe abnormality? TECHNIQUE: Imaging protocol: Magnetic resonance imaging of the head without and with contrast. Contrast material: DOTAREM; Contrast volume: 17 ml; Contrast route: INTRAVENOUS (IV); COMPARISON: MR BRAIN WO 03/01/2025 12:36 PM FINDINGS: Brain: Small focus of chronic encephalomalacia in the anteromedial right frontal pole along the anterior aspect of the right gyrus rectus. Mild nonspecific T2/FLAIR hyperintensities of the periventricular and deep subcortical white matter, most likely secondary to chronic small vessel ischemic change. No intracranial hemorrhage or extra-axial fluid collection. No evidence of mass effect or midline shift. No restricted diffusion to suggest acute infarct. No abnormal intracranial enhancement. Cerebral ventricles: Mild prominence of the ventricles and sulci, likely attributed to parenchymal volume loss. Bones: Unremarkable. Paranasal sinuses: Unremarkable. Mastoid air cells: No mastoid effusion. Orbital cavities: Unremarkable. Soft tissues: Unremarkable. IMPRESSION: 1. Small focus of chronic encephalomalacia in the anteromedial right frontal pole along the anterior aspect of the right gyrus rectus 2. Other chronic findings, as above. Dictated and Authenticated by: Nav Keyes MD. Orderin Ad Torres MD
== END 2025-03-11 09:56 ==
LOC: DI 09:37
PROVIDERS: PCP Nurse Practitioner Family; Visit Provider Nurse Practitioner Adult Health
DX: R90.89 Other abnormal findings on diagnostic imaging of central nervous system (principal)
CPT/HCPCS: 70553

== ENCOUNTER 2025-04-22 03:36 | Outpatient (CLI) | payer BC, SELFPAY ==
[2025-04-22 11:09] LABS: Abs Immature Grans 0.01 10^3/uL (0.0-0.06); Absolute Basophil Count 0.11 10^3/uL (0.0-0.2); Absolute Eosinophil Count 0.45 10^3/uL (0.0-0.7); Absolute Lymphocyte Count 2.44 10^3/uL (1.2-3.4); Absolute Monocyte Count 0.86 10^3/uL (0.1-0.8); Absolute Neutrophil Count 3.79 10^3/uL (1.2-6.7); Basophils % 1.4 %; Eosinophils % 5.9 %; HCT 35.5 % (36.0-46.0); HGB 12.6 g/dL (11.2-15.7); Immature Grans % 0.1 %; Lymphocytes % 31.9 %; MCH 35.6 pg (27.0-33.0); MCHC 35.5 % (32.0-36.0); MCV 100 fL (80-95); Monocytes % 11.2 %; Neutrophils % 49.5 %; Platelet Count 124 10^3/uL (130-400); RBC 3.54 10^6/uL (3.93-5.22); RDW 13.7 % (11.7-14.6); RDW-SD 50.2 fL; WBC 7.66 10^3/uL (4.4-10.8)
[2025-04-22 11:10] LABS: Bilirubin Negative (Negative); Blood Negative (Negative); Clarity Clear (Clear); Glucose Negative (Negative); Ketones Negative (Negative); Leukocyte Esterase Small (Negative); Nitrite Negative (Negative); Specific Gravity 1.015 (1.005-1.025); pH 6.5 (5-8)
[2025-04-22 11:22] LABS: INR 1.2 (0.9-1.1); PTT Activated 29.1 sec (20.6-30.2); Prothrombin Time 11.7 sec (9.1-11.1)
[2025-04-22 11:42] LABS: Anion Gap 16.8 mmol/L (3-11); BUN 8 mg/dL (7-18); CO2 22.2 mmol/L (21.0-32.0); CREATININE 0.9 mg/dL (0.55-1.02); Chloride 94 mmol/L (98-107); Estimated GFR 73.19 (mL/min/1.73m2); Potassium 3.4 mmol/L (3.5-5.1); Sodium 133 mmol/L (136-145)
== END 2025-04-22 03:37 | disposition home or self-care (01) ==
LOC: LBO 03:36
PROVIDERS: PCP Nurse Practitioner Family; Visit Provider Neurological Surgery
DX: M50.321 Other cervical disc degeneration at C4-C5 level (principal); Z98.1 Arthrodesis status
CPT/HCPCS: 36415; 80051; 84520; 81003; 82565; 85025; 85610; 85730

== ENCOUNTER 2025-09-07 00:09 | Outpatient (CLI) | payer BC, SELFPAY ==
[2025-09-07 13:06] LABS: Hemoglobin A1C 9.1 % (<5.7)
[2025-09-07 13:32] LABS: ALT 43 U/L (14-59); Albumin 2.5 g/dL (3.4-5.0); Alkaline Phosphatase 372 U/L (46-116); Anion Gap 12.6 mmol/L (3-11); BUN 9 mg/dL (7-18); Bilirubin, Total 4.1 mg/dL (0.2-1.0); CO2 21.4 mmol/L (21.0-32.0); Calcium 8.4 mg/dL (8.5-10.1); Chloride 99 mmol/L (98-107); Cholesterol 182 mg/dL (<200); Estimated GFR 64.49 (mL/min/1.73m2); HDL Cholesterol 23 mg/dL (>or=50); Potassium 3.4 mmol/L (3.5-5.1); Sodium 133 mmol/L (136-145); TSH (W/Ref FT4) 0.13 uIU/mL (0.36-3.74); Total Protein 6.4 g/dL (6.4-8.2); Triglyceride 451 mg/dL (<150)
[2025-09-07 14:11] LABS: AST 52 U/L (15-37); LDL CHOLESTEROL 109 mg/dL (<100)
[2025-09-08 10:30] LABS: HIV-1/2 Ag & Ab Screen Negative (Negative)
[2025-10-12 12:51] LABS: Glucose 510 mg/dL (74-106)
== END 2025-09-07 00:10 | disposition home or self-care (01) ==
LOC: LBO 00:09
PROVIDERS: PCP Nurse Practitioner Family; Visit Provider Nurse Practitioner Family
DX: Z00.00 Encounter for general adult medical examination without abnormal findings (principal); F10.10 Alcohol abuse, uncomplicated; I10 Essential (primary) hypertension; E78.5 Hyperlipidemia, unspecified; E11.9 Type 2 diabetes mellitus without complications; E03.9 Hypothyroidism, unspecified; K70.10 Alcoholic hepatitis without ascites; K75.81 Nonalcoholic steatohepatitis (NASH); D12.6 Benign neoplasm of colon, unspecified; G25.0 Essential tremor
CPT/HCPCS: 36415; 80053; 80061; 83721; 87389; 83036; 84439; 84443

== ENCOUNTER 2025-10-21 10:02 | Inpatient (IN) | payer BC, SELFPAY ==
[2025-10-21] VITALS (34 sets, daily range): BP systolic 101–143; BP diastolic 60–83; PULSE 97–113; RESP 13–23; TEMP 36.3–37; O2SAT 94–98
--- NOTE | 2025-10-21 10:45 | RT.EKG_ITS ---
APPROVED REPORT Exam: Resting ECG Reason for Exam: weakness Patient Location: E HR:105 bpm ECG Measurements Heart Rate 105 AXIS VA 163 P 100 QRSd 82 QRS -2 QT 386 T 45 QTc 512 Conclusion Sinus tachycardia...rate> 99 Prolonged QT interval...QTc >510mS
--- NOTE | 2025-10-21 10:45 | DI.CT_ITS ---
Exam(s) CT ABDOMEN PELVIS W EXAM: CT ABDOMEN PELVIS W CLINICAL HISTORY: anasarca, cruz, icterus. TECHNIQUE: Imaging Protocol: Axial computed tomography images with coronal and sagittal reformatted images were created and reviewed CONTRAST MATERIAL: Intravenous: Omnipaque-350 75cc Oral: None COMPARISON: CT CT ABD AORTA CTA W RUNOFF from 10/10/[address] CHEST LUNG CANCER SCREEN from 03/10/2025 FINDINGS: VISUALIZED LUNG BASES: There is a small right pleural effusion now evident. This was not present on most recent chest CT scan of 03/10/2025.. ABDOMEN: There is now the significant amount of ascites in the abdomen and pelvis. LIVER: The liver appears cirrhotic. Upper normal size. No distinct mass evident in the liver. There are no dilated intrahepatic ducts. GALLBLADDER/BILIARY: There are calcified gallstones at the gallbladder neck region with the largest calculus at this level measuring 1.3 cm diameter. Gallbladder is upper normal size. There is some fluid around the gallbladder but this is most probably related to the generalized ascites. There are no calculi seen within the CBD and the CBD is not dilated. PANCREAS: There is a small amount of fluid around the pancreas. There is no evidence of pancreatic mass nor dilatation of the pancreatic duct. There are no pancreatic parenchymal calcifications. SPLEEN: Spleen is not enlarged. No obvious intrasplenic lesions. Splenic vein diameter is normal. Splenic and portal veins are patent. No intraluminal thrombosis. ADRENALS: There are no significant adrenal masses. KIDNEYS:No cysts evident. No solid renal masses. No calculi nor hydronephrosis.. ABDOMINAL AORTA: Abdominal aorta is calcified but not enlarged. Iliac arteries are not enlarged. LYMPH NODES:There is no retroperitoneal nor paraaortic adenopathy. ABDOMINAL WALL: No evidence of significant anterior abdominal wall nor inguinal hernia. GI: There is no evidence of bowel obstruction, free air, nor focal abscess. PELVIS: GI: Bending sys difficult to identify but there is no evidence of obvious acute appendicitis.No evidence of sigmoid diverticulitis. LYMPH NODES: There is no intrapelvic nor inguinal adenopathy. REPRODUCTIVE: Uterus exhibits normal size. No obvious ovarian masses. URINARY BLADDER: No calculi nor obvious masses evident OSSEOUS: No fractures and no significant osseous lesions. Mild disc space narrowing at L5-S1 level noted. No listhesis. No pars defects. Other disc spaces exhibit normal height. IMPRESSION: 1. There is a significant amount of ascites in the abdomen and pelvis without present, not previously present in February 2025 and there is also a new small right pleural effusion. 2. Hepatic cirrhosis is again noted. No splenomegaly. 3. Cholelithiasis again noted. The CBD is not dilated. Report called by myself to ER provider 10/21/2025 at 1:02 p.m. RADIATION DOSE DELIVERED: 515.52mGy.cm Total DLP DATA REPOSITORY: All CT scans at this facility are submitted to the National Radiology Data Registry (NRDR) Dose Index Registry (DIR) with the [employer] (A[employer]). RADIATION OPTIMIZATION: All CT scans at this facility use at least one of these dose optimization techniques: automated exposure control; mA and/or kV adjustment per patient size (includes targeted exams where dose is matched to clinical indication); or iterative reconstruction.
[2025-10-21 11:08] LABS: Abs Immature Grans 0.01 10^3/uL (0.0-0.06); HCT 34.2 % (36.0-46.0); HGB 12.0 g/dL (11.2-15.7); Immature Grans % 0.1 %; MCH 35.0 pg (27.0-33.0); MCHC 35.1 % (32.0-36.0); MCV 100 fL (80-95); MPV 9.4 fL (8.0-11.0); Platelet Count 126 10^3/uL (130-400); RBC 3.43 10^6/uL (3.93-5.22); RDW 13.5 % (11.7-14.6); RDW-SD 49.3 fL; WBC 6.78 10^3/uL (4.4-10.8)
[2025-10-21] MEDS: diphenhydrAMINE 50 MG/ML VIAL IVP (11:26)
[2025-10-21] MEDS: methylPREDNISolone SUCC 40 MG VIAL IVP (11:26)
[2025-10-21 11:29] LABS: INR 1.3 (0.9-1.1); Prothrombin Time 13.0 sec (9.1-11.1)
[2025-10-21 11:36] LABS: Magnesium 1.0 mg/dL (1.6-2.6)
[2025-10-21 11:37] LABS: Lipase 45 U/L (<53)
[2025-10-21 12:05] LABS: ALT 31 U/L (10-49); AST 63 U/L (<34); Albumin 3.6 g/dL (3.2-5.0); Alkaline Phosphatase 182 U/L (46-116); Anion Gap 16.3 mmol/L (3-11); BUN 11 mg/dL (9-23); Bilirubin, Direct 2.0 mg/dL (<=0.3); Bilirubin, Total 4.50 mg/dL (0.2-1.2); CO2 23.4 mmol/L (20.0-31.0); Calcium 9.6 mg/dL (8.3-10.6); Chloride 96 mmol/L (98-107); Glucose 158 mg/dL (74-106); Potassium 3.3 mmol/L (3.5-5.1); Sodium 136 mmol/L (136-145); Total Protein 7.0 g/dL (5.7-8.2)
[2025-10-21] MEDS: MAGNESIUM SULFATE 2 GM/50 ML BAG IV_INF ×2 (12:05→21:17)
[2025-10-21] MEDS: Magnesium Oxide 400 MG TAB 800 MG PO (12:05)
[2025-10-21 12:21] LABS: Ammonia 108 umol/L (11-32)
[2025-10-21] MEDS: Normal Saline - Diluent 50 ML VIAL IJ (12:23)
[2025-10-21] MEDS: Omnipaque 350 MG/ML 100 ML BTL IJ (12:23)
[2025-10-21] MEDS: Normal Saline Flush 10 ML SYR IVP ×4 (12:23→21:18)
[2025-10-21] MEDS: Normal Saline 1,000 ML 1000 ML IV (12:42)
[2025-10-21 13:07] LABS: BE (Venous) 2 mmol/L (-2-3); HCO3 (Venous) 26 mmol/L (23-28); O2 Sat (Venous) 37 %; TCO2 (Venous) 24 mmol/L (24-29); pCO2 (Venous) 38 mmHg (41-51); pO2 (Venous) 22 mmHg
[2025-10-21 13:36] LABS: Glucose Negative (Negative)
--- NOTE | 2025-10-21 13:41 | W.ED.GENAD ---
Discharge Plan Disposition Patient Disposition: Admit to [facility] Discharge Details Clinical Impression: Cirrhosis, Ascites, Anasarca, Hypomagnesemia, Hypokalemia, Pleural effusion Primary Care Provider: Tiffany Nance ED Provider: Francie Enriquez Home Meds and New Rx's Prescriptions: No Action loratadine 10 mg tablet 10 mg PO DAILY albuterol sulfate 90 mcg/actuation HFA aerosol inhaler 2 puff Inhalation Q6H PRN (Reason: shortness of breath or wheezing) Qty: 8.5 4RF (DME) FreeStyle Gal 2 Plus Sensor Device See Rx Instructions .Route Qty: 3 3RF Rx Instructions: As directed (DME) FreeStyle Gal 2 [place] Misc See Rx Instructions .Route Qty: 1 0RF Rx Instructions: As directed ezetimibe [Zetia] 10 mg tablet 10 mg PO DAILY Qty: 90 3RF lisinopril 10 mg tablet 10 mg PO DAILY Qty: 90 3RF Rx Instructions: Take 1 tablet daily Prilosec 2.5 mg susp,delayed release for recon 10 mg PO ONCE (DME) lancets [BD Ultra-Fine II Lancets] 30 gauge misc See Rx Instructions .ROUTE .MEDSUPPLY Qty: 100 4RF Rx Instructions: Check blood sugar twice a day (DME) nebulizers [Aeroneb Go Nebulizer] [facility] See Rx Instructions .ROUTE .MEDSUPPLY Qty: 1 4RF Rx Instructions: Use with duoneb inhaler every 6 hours as needed for wheezing metformin 500 mg tablet extended release 24 hr 1,000 mg PO BID Qty: 360 3RF amitriptyline 25 mg tablet 25 mg PO QHS Qty: 60 3RF levothyroxine 75 mcg tablet 75 mcg PO DAILY Qty: 90 3RF levothyroxine 100 mcg tablet 75 mcg PO DAILY Patient Comments: TAKE ONE TABLET BY MOUTH EVERY DAY hydrochlorothiazide 25 mg tablet 12.5 mg PO DAILY Patient Comments: TAKE ONE TABLET BY MOUTH EVERY DAY HPI General Date/Time Provider Initiated Documentation: 10/21/25 10:03. HPI Narrative: This 60-year-old female with history of canal stenosis with recent neurosurgery at [facility] in April, , type 2 diabetes insulin-dependent, RODRIGUEZ, alcoholic steatohepatitis essential hypertension, hyperlipidemia, hypothyroidism, remote history of alcohol abuse presents with report of speaking with her doctor this morning with an abnormal gallbladder on her ultrasound. Patient states she has had some distention in her abdomen and pretty significant peripheral edema over the course of the past 3 weeks which is new for her. She denies any abdominal pain or fevers. She denies nausea or vomiting. She does states she has had some yellowing to the whites of her eyes. Denies any illicit substance use. Has been seen by sheeter waxer operator probably 10+ years ago and had a workup and was diagnosed with nonalcoholic steatohepatitis at that time. Related Data Home Medications ?Medication ?Instructions ?Recorded ?Confirmed lancets 30 gauge (BD Ultra-Fine II #100 ea 10/28/20 10/21/25 Lancets) loratadine 10 mg tablet 10 mg PO DAILY 04/28/21 10/21/25 nebulizers (Aeroneb Go Nebulizer) #1 ea 05/15/21 10/21/25 albuterol sulfate 90 mcg/actuation 2 puff inhalation Q6H PRN 08/28/24 10/21/25 aerosol inhaler shortness of breath or wheezing #8.5 grams metformin 500 mg tablet,extended 1,000 mg (2 x 500 mg) PO BID #360 12/17/24 10/21/25 release 24 hr tabs omeprazole magnesium 2.5 mg oral 10 mg PO ONCE 02/09/25 10/21/25 suspension,delayed release (Prilosec) amitriptyline 25 mg tablet 25 mg PO QHS #60 tabs 07/26/25 10/21/25 blood-glucose sensor (FreeStyle #3 ea 08/31/25 10/21/25 Gal 2 Plus Sensor device) ezetimibe 10 mg tablet (Zetia) 10 mg PO DAILY #90 tabs 08/31/25 10/21/25 flash glucose scanning reader #1 ea 08/31/25 10/21/25 (FreeStyle Gal 2 [place]) lisinopril 10 mg tablet 10 mg PO DAILY #90 tabs 08/31/25 10/21/25 levothyroxine 75 mcg tablet 75 mcg PO DAILY #90 tabs 09/13/25 10/21/25 hydrochlorothiazide 25 mg tablet 12.5 mg PO DAILY 10/21/25 10/21/25 levothyroxine 100 mcg tablet 75 mcg PO DAILY 10/21/25 10/21/25 Previous Rx's ?Medication ?Instructions ?Recorded lancets 30 gauge (BD Ultra-Fine II #100 ea 10/28/20 Lancets) nebulizers (Aeroneb Go Nebulizer) #1 ea 05/15/21 albuterol sulfate 90 mcg/actuation 2 puff inhalation Q6H PRN 08/28/24 aerosol inhaler shortness of breath or wheezing #8.5 grams metformin 500 mg tablet,extended 1,000 mg (2 x 500 mg) PO BID #360 12/17/24 release 24 hr tabs amitriptyline 25 mg tablet 25 mg PO QHS #60 tabs 07/26/25 blood-glucose sensor (FreeStyle #3 ea 08/31/25 Gal 2 Plus Sensor device) ezetimibe 10 mg tablet (Zetia) 10 mg PO DAILY #90 tabs 08/31/25 flash glucose scanning reader #1 ea 08/31/25 (FreeStyle Gal 2 [place]) lisinopril 10 mg tablet 10 mg PO DAILY #90 tabs 08/31/25 levothyroxine 75 mcg tablet 75 mcg PO DAILY #90 tabs 09/13/25 Allergies Allergy/AdvReac Type Severity Reaction Status Date / Time Iodinated Contrast Media Allergy Unknown Rash Verified 10/21/25 11:40 (Iodinated Contrast- Oral and IV Dye) Penicillins Allergy Unknown Unknown- Verified 10/21/25 11:40 Family history Sulfa (Sulfonamide Allergy Unknown Unknown- Verified 10/21/25 11:40 Antibiotics) Family history General Stated Complaint: Abd Prob ISIDORO: 3 Exam Narrative Exam Narrative: Alert and oriented tired appearing 60-year-old female with mild jaundice and icterus, distended abdomen without tenderness, anasarca of the bilateral lower extremities up to knees, 3+ edema distal pulses intact, no evidence of cellulitis, clear to auscultation sinus tachycardia. Course Vital Signs Vital signs: Vital Signs Temperature 37.0 C 10/21/25 10:07 Pulse 113 H 10/21/25 10:07 Respiratory Rate 16 10/21/25 10:07 Blood Pressure 142/83 H 10/21/25 10:07 Pulse Oximetry 98 10/21/25 10:07 Temperature 37.0 C 10/21/25 10:10 Pulse 104 H 10/21/25 12:50 Pulse 104 H 10/21/25 12:50 Respiratory Rate 13 10/21/25 12:50 Blood Pressure 142/65 H 10/21/25 12:46 Blood Pressure Mean 89 10/21/25 12:46 Pulse Oximetry 96 10/21/25 12:50 Pain Level 0 10/21/25 10:10 Lab/Test Results Lab/Test Results: 10/21/25 11:58 Blood Blood Culture - Pending 10/21/25 12:00 Blood Blood Culture - Pending Laboratory Tests Range/Units 10/21/25 10/21/25 10/21/25 10:32 11:50 11:59 WBC (4.4-10.8) 10^3/uL 6.78 RBC (3.93-5.22) 10^6/uL 3.43 L Hgb (11.2-15.7) g/dL 12.0 Hct (36.0-46.0) % 34.2 L MCV (80-95) fL 100 H MCH (27.0-33.0) pg 35.0 H MCHC (32.0-36.0) % 35.1 RDW (11.7-14.6) % 13.5 Plt Count (130-400) 10^3/uL 126 L MPV (8.0-11.0) fL 9.4 Immature Gran % % 0.1 Neutrophils % % 47.5 Lymphocytes % % 33.0 Monocytes % % 10.8 Eosinophils % % 6.5 Basophils % % 2.1 Nucleated RBC % (0.0-0.3) % 0.0 Absolute Neutrophils (1.2-6.7) 10^3/uL 3.22 Absolute Lymphocytes (1.2-3.4) 10^3/uL 2.24 Absolute Monocytes (0.1-0.8) 10^3/uL 0.73 Absolute Eosinophils (0.0-0.7) 10^3/uL 0.44 Absolute Basophils (0.0-0.2) 10^3/uL 0.14 PT (9.1-11.1) sec 13.0 H INR (0.9-1.1) 1.3 H VBG pH (7.31-7.41) VBG pCO2 (41-51) mmHg VBG pO2 mmHg VBG HCO3 (23-28) mmol/L VBG Total CO2 (24-29) mmol/L VBG O2 Saturation % VBG Base Excess (-2-3) mmol/L VBG Lactate (<or=2.0) mmol/L 7.0 H* Sodium (136-145) mmol/L 136 Potassium (3.5-5.1) mmol/L 3.3 L Chloride (98-107) mmol/L 96 L Carbon Dioxide (20.0-31.0) mmol/L 23.4 Anion Gap (3-11) mmol/L 16.3 H BUN (9-23) mg/dL 11 Creatinine (0.55-1.02) mg/dL 0.53 L Est GFR (CKD-EPI 2020) (mL/min/1.73m2) 117.44 Glucose (74-106) mg/dL 158 H Calcium (8.3-10.6) mg/dL 9.6 Magnesium (1.6-2.6) mg/dL 1.0 L Total Bilirubin (0.2-1.2) mg/dL 4.50 H Conjugated Bilirubin (<=0.3) mg/dL 2.0 H AST (<34) U/L 63 H ALT (10-49) U/L 31 Alkaline Phosphatase (46-116) U/L 182 H Ammonia (11-32) umol/L 108 H Total Protein (5.7-8.2) g/dL 7.0 Albumin (3.2-5.0) g/dL 3.6 Lipase (<53) U/L 45 Urine Color (Yellow) Urine Clarity (Clear) Urine pH (5-8) Ur Specific Florence (1.005-1.025) Urine Protein (Neg-Trace) mg/dL Urine Ketones (Negative) mg/dL Urine Blood (Negative) Urine Nitrite (Negative) Urine Bilirubin (Negative) Urine Urobilinogen (Up to 0.2) mg/dL Ur Leukocyte Esterase (Negative) Urine Glucose (Negative) mg/dL Ethyl Alcohol (<3) mg/dL < 3.0 Range/Units 10/21/25 10/21/25 13:00 13:17 WBC (4.4-10.8) 10^3/uL RBC (3.93-5.22) 10^6/uL Hgb (11.2-15.7) g/dL Hct (36.0-46.0) % MCV (80-95) fL MCH (27.0-33.0) pg MCHC (32.0-36.0) % RDW (11.7-14.6) % Plt Count (130-400) 10^3/uL MPV (8.0-11.0) fL Immature Gran % % Neutrophils % % Lymphocytes % % Monocytes % % Eosinophils % % Basophils % % Nucleated RBC % (0.0-0.3) % Absolute Neutrophils (1.2-6.7) 10^3/uL Absolute Lymphocytes (1.2-3.4) 10^3/uL Absolute Monocytes (0.1-0.8) 10^3/uL Absolute Eosinophils (0.0-0.7) 10^3/uL Absolute Basophils (0.0-0.2) 10^3/uL PT (9.1-11.1) sec INR (0.9-1.1) VBG pH (7.31-7.41) 7.45 H VBG pCO2 (41-51) mmHg 38 L VBG pO2 mmHg 22 VBG HCO3 (23-28) mmol/L 26 VBG Total CO2 (24-29) mmol/L 24 VBG O2 Saturation % 37 VBG Base Excess (-2-3) mmol/L 2 VBG Lactate (<or=2.0) mmol/L Sodium (136-145) mmol/L Potassium (3.5-5.1) mmol/L Chloride (98-107) mmol/L Carbon Dioxide (20.0-31.0) mmol/L Anion Gap (3-11) mmol/L BUN (9-23) mg/dL Creatinine (0.55-1.02) mg/dL Est GFR (CKD-EPI 2020) (mL/min/1.73m2) Glucose (74-106) mg/dL Calcium (8.3-10.6) mg/dL Magnesium (1.6-2.6) mg/dL Total Bilirubin (0.2-1.2) mg/dL Conjugated Bilirubin (<=0.3) mg/dL AST (<34) U/L ALT (10-49) U/L Alkaline Phosphatase (46-116) U/L Ammonia (11-32) umol/L Total Protein (5.7-8.2) g/dL Albumin (3.2-5.0) g/dL Lipase (<53) U/L Urine Color (Yellow) Yellow Urine Clarity (Clear) Clear Urine pH (5-8) 6.5 Ur Specific Florence (1.005-1.025) 1.015 Urine Protein (Neg-Trace) mg/dL Negative Urine Ketones (Negative) mg/dL Trace H Urine Blood (Negative) Negative Urine Nitrite (Negative) Negative Urine Bilirubin (Negative) Negative Urine Urobilinogen (Up to 0.2) mg/dL 4.0 H Ur Leukocyte Esterase (Negative) Negative Urine Glucose (Negative) mg/dL Negative Ethyl Alcohol (<3) mg/dL Medical Decision Making Results: Severe ascites noted on CT abdomen and pelvis which is new for patient since February 2025, cirrhosis again visualized per our radiologist, EKG with mild prolonged QTc send is a without acute abnormality per the count of 126,000, magnesium of 1, potassium of 3.3, pH of 7.45 chloride of 96 gap of 16.3 lactate of 7 total bili of 4.5 conjugated of 2 AST of 3 ammonia of 108 Assessment and plan: Patient is alert and oriented, no acute distress, she appears chronically ill, she has jaundiced and icterus, her mag is 1.0 so she was given 2 g of IV mag in addition to 800 mg of p.o. mag. She did have QTc prolongation on her EKG patient has a normal-appearing lipase, her CT abdomen and pelvis shows severe ascites. Abdominal exam is nontender but distended. 40 mEq of potassium for potassium of 3.2. 100 cc of fluids an hour for an elevated lactate and gap although this is likely related to ascites presentation. I spoke with Dr.Lauren Clarke on-call for gastroenterology and her recommendation is to perform blood cultures continue to check lactate, peth level, paracentesis nonemergent basis, corresponding with the paracentesis on 100 g of albumin today and tomorrow, lactulose for the ammonia level of 108 although patient's # overt signs of hepatic encephalopathy. Will continue on telemetry given the QTc prolongation with hypomagnesemia. Case discussed with admitting hospitalist, Dr. Fortune. Patient agreeable to admission at this time. Adamantly declines any alcohol use since June, no clinical signs consistent with acute alcohol withdrawal aside from mild tachycardia. PFSH All Active Problems Pleural effusion (Acute) Hypokalemia (Acute) Hypomagnesemia (Acute) Anasarca (Acute) Ascites (Acute) Cirrhosis (Acute) Abnormal brain MRI (Acute) Central stenosis of spinal canal (Acute) Gait abnormality (Acute) Essential tremor (Acute) Lethargy (Acute) Imbalance (Acute) Head injury (Acute) New onset of headaches (Acute) Acute head trauma (Acute) Mid October 2024. Fell and hit head, lost consciousness. Undiagnosed cardiac murmurs (Acute) Neuropathy (Acute) Type 2 diabetes mellitus (Chronic) Nonalcoholic steatohepatitis (RODRIGUEZ) (Chronic) Has both RODRIGUEZ and LOUIE per [facility] Alcoholic steatohepatitis (Chronic) Has both RODRIGUEZ and LOUIE per [facility] Essential hypertension (Chronic) Hyperlipidemia (Chronic) Hypothyroidism (Chronic) Cigarette smoker (Chronic) Annual LDCT Osteoarthritis (Chronic) Alcohol abuse (Chronic) 04/2022- 3-4 drinks a day Surgical History S/P right knee arthroscopy (08/31/19) S/P dilatation and curettage S/P appendectomy With subsequent lysis of adhesions x 2 S/P hernia repair (~2006) Bilateral femoral hernia repairs S/P cervical discectomy (07/08/12) With fusion of C5-C6 and C6-C7 for fall off ladder; done at [facility] [place] S/P left breast biopsy benign S/P right rotator cuff repair Family History Mother Essential hypertension Hyperlipidemia Father , at 80 of liver cancer Essential hypertension Depression Hyperlipidemia Liver cancer Type 2 diabetes mellitus Brother Essential hypertension Type 2 diabetes mellitus Maternal Grandfather , in his 40s of NM Heart disease Myocardial infarction Maternal Grandmother , in her 80s of CHF Heart disease Paternal Grandfather , in his 80s COPD (chronic obstructive pulmonary disease) Heart disease Depression Essential hypertension Paternal Grandmother , at 79 of colon cancer Colon cancer Hypertension Type 2 diabetes mellitus Hyperlipidemia Diabetes Social History (Updated 09/01/25 @ 13:24 by Shirlene Poole) Smoking/Tobacco Use Status: Current every day Tobacco Type: cigarettes Tobacco: How many years used: 42 Quit status: not considering quitting Second Hand Exposure: Yes Smoking risk assessment performed?: Yes Alcohol Intake: former Drug use: Never Substance use type: does not use Adopted: No Caregiver/Support person: No Household members: significant other Housing: house Communication Needs: None Education Level: college Do you need help understanding health information?: Never current occupation: [employer] Pets and animals: Yes Pets and animals: cat(s), dog(s), horse(s) and farm animals Sexually active: No Do you think of yourself as: lesbian/manuel/homosexual Current gender identity: female What is your relationship status?: How often do you talk on the phone with friends or family?: twice per week How often do you get together with friends or relatives?: once per week Do you belong to any clubs or organized social groups?: no Panel score (0-1 are the most socially isolated patients): 2 Sonya/Jehovah'S Witness: No preference Special sonya needs: No Agree to transfusion: Yes Seatbelt use: always Helmet use: Yes Drive intox or ride w/intox dinkey driver: No Female Reproductive History Menstrual Menopause type: natural History History 0 Para Hx # Term Pregnancies Multiple births Hx # Pregnancies Ectopic pregnancies AB induced Hx Number of Living Children AB spontaneous
[2025-10-21 13:49] LABS: TSH (W/Ref FT4) 1.44 uIU/mL (0.55-4.78)
--- NOTE | 2025-10-21 14:00 | DI.RAD_ITS ---
Exam(s) XR CHEST 2V PA LATERAL EXAM: XR CHEST 2V PA LATERAL CLINICAL HISTORY: pleural effusion right TECHNIQUE: 2D digital imaging was performed of the chest. Two images were obtained. PA and lateral views were obtained. COMPARISON: CR CHEST 2 VIEWS PA,LAT from 10/16/[address] CHEST LUNG CANCER SCREEN from 03/10/[address] ABDOMEN PELVIS W from 10/21/2025 FINDINGS: MEDIASTINUM: Normal. HEART: Normal. PULMONARY VASCULATURE: Normal. LUNGS: Clear. PLEURAL SPACE: There is a small right pleural effusion. There is no left pleural effusion. There is no pneumothorax. BONE:Within normal limits for the patient's age. OTHER FINDINGS:Normal. IMPRESSION: Small right pleural effusion. DATA REPOSITORY: RADIATION DOSE DELIVERED:
--- NOTE | 2025-10-21 14:42 | W.PM.HP.N ---
Date of service: 10/21/25 Time of Service: 14:42 Assessment and Plan Assessment and plan (1) Hepatic encephalopathy: Status: Acute Assessment and plan: As per HPI Ammonia 108 On lactulose, consider rifaximin 500 twice daily as secondary Treatment monitor clincal improvemnt (2) SBP (spontaneous bacterial peritonitis): Status: Acute Assessment and plan: as per point 1 in the setting of lactic acidosis Will cover with ceftriaxone IV while awaiting paracentesis culture results (3) Ascites: Status: Acute Assessment and plan: As per CT scan On IV Lasix, spironolactone, Surgical consult ongoing for paracentesis (4) 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: Status: Acute Assessment and plan: History of, describes an acute exacerbation with Ascites and hepatic encephalopathy with ammonia at 108 On lactulose, consider rifaximin 500 twice daily as secondary Treatment Albumin IV -anticipate paracentesis procedure to time (5) Lactic acidosis: Status: Acute Assessment and plan: As per HPI hold metformin Might be contributing to hepatic encepholopathy versus SBP (6) Anasarca: Status: Acute Assessment and plan: Ongoing IV Lasix and albumin (7) Pleural effusion: Status: Acute (8) Hypokalemia: Status: Acute Assessment and plan: Supplemented BMP in the morning (9) Hypomagnesemia: Status: Acute Assessment and plan: Mag 1.0 supplementation given mag in the morning (10) Diabetes: Status: Chronic Assessment and plan: Fingerstick ACHS will hold metformin in the setting of lactic acidosis SSI coverage AC (11) Essential hypertension: Status: Chronic Assessment and plan: Will hold hydrochlorothiazide while on IV Lasix and spironolactone and reassess (12) Pleural effusion, right: Status: Acute Assessment and plan: On IV Lasix (13) Hyperlipidemia: Status: Chronic Assessment and plan: Ongoing movement (14) Hypothyroidism: Status: Chronic Assessment and plan: Ongoing home meds (15) Cigarette smoker: Status: Chronic Assessment and plan: Nicotine replacement therapy 1/2 pack day now for 45 years (16) On deep vein thrombosis (DVT) prophylaxis: Status: Acute Assessment and plan: INR 1.3 - will do SCd / TEDs - Discussed with Dr. Fortune History of Present Illness History of Present Illness Chief Complaint: Abdominal distension, LE edema Narrative: This 60-year-old female with history of canal stenosis with a PMHx of recent neurosurgery at [facility] in April with ongoing dizziness , weakness, type 2 diabetes insulin-dependent, MSLED, alcoholic steatohepatitis essential hypertension, hyperlipidemia, hypothyroidism, multiple abdominal; surgeries, remote history of alcohol abuse with last ETOH intake in May presented to the ED s/p referral by PCP in the setting of abnormal RUQ US with concern for cholelithiasis. Patient reported abdominal distention and increased lower ext. peripheral edema over the course of the past 3 weeks; denied new dizziness, headache, chest pain abdominal pain, fever, chills , nausea, vomiting. No reported of melena or hematochezia. Denied any illicit substance use. Workup in the ED was positive for lactic acidosis at 7.0 and 7.8 w/o leukocytosis, thrombocytopenia at 126 around baseline, T bili at 4.5 and conjugated bili at 2.0, ammonia t 108,AST 63 and ALK phos 182, hypokalemia at 3.3, Mg at 1.0. The patient reporting feeling foggy and unsteady, was unable to state date and thought it was September. As per ED provider recommendations made for albumin IV 100 mg X 2 days, lactulose. Surgical consult completed in the ED for paracentesis with Dr. Truong. The patient was admitted to the medical surgical floor with telemetry by the hospitalist service. Upon furhter discussion with ED provider , decision made to empirically cover for SBP culture results. 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 Fell and hit head, lost consciousness. Undiagnosed cardiac murmurs (Acute) Neuropathy (Acute) Type 2 diabetes mellitus (Chronic) Nonalcoholic steatohepatitis (RODRIGUEZ) (Chronic) Has both RODRIGUEZ and LOUIE per [facility] Alcoholic steatohepatitis (Chronic) Has both RODRIGUEZ and LOUIE per [facility] Essential hypertension (Chronic) Hyperlipidemia (Chronic) Hypothyroidism (Chronic) Cigarette smoker (Chronic) Annual LDCT Osteoarthritis (Chronic) Alcohol abuse (Chronic) 04/2022- 3-4 drinks a day Surgical History S/P right knee arthroscopy (08/31/19) S/P dilatation and curettage S/P appendectomy With subsequent lysis of adhesions x 2 S/P hernia repair (~2006) Bilateral femoral hernia repairs S/P cervical discectomy (07/08/12) With fusion of C5-C6 and C6-C7 for fall off ladder; done at [facility] [place] Green S/P left breast biopsy benign S/P right rotator cuff repair Family History Mother Essential hypertension Hyperlipidemia Father , at 80 of liver cancer Essential hypertension Depression Hyperlipidemia Liver cancer Type 2 diabetes mellitus Brother Essential hypertension Type 2 diabetes mellitus Maternal Grandfather , in his 40s of [place] Heart disease Myocardial infarction Maternal Grandmother , in her 80s of CHF Heart disease Paternal Grandfather , in his 80s COPD (chronic obstructive pulmonary disease) Heart disease Depression Essential hypertension Paternal Grandmother , at 79 of colon cancer Colon cancer Hypertension Type 2 diabetes mellitus Hyperlipidemia Diabetes Social History (Updated 09/01/25 @ 13:24 by Shirlene Poole) Smoking/Tobacco Use Status: Current every day Tobacco Type: cigarettes Tobacco: How many years used: 42 Quit status: not considering quitting Second Hand Exposure: Yes Smoking risk assessment performed?: Yes Alcohol Intake: former Drug use: Never Substance use type: does not use Adopted: No Caregiver/Support person: No Household members: significant other Housing: house Communication Needs: None Education Level: college Do you need help understanding health information?: Never current occupation: [employer] Pets and animals: Yes Pets and animals: cat(s), dog(s), horse(s) and farm animals Sexually active: No Do you think of yourself as: lesbian/manuel/homosexual Current gender identity: female What is your relationship status?: How often do you talk on the phone with friends or family?: twice per week How often do you get together with friends or relatives?: once per week Do you belong to any clubs or organized social groups?: no Panel score (0-1 are the most socially isolated patients): 2 Sonya/Mu-Ism: No preference Special sonya needs: No Agree to transfusion: Yes Seatbelt use: always Helmet use: Yes Drive intox or ride w/intox power truck driver: No Female Reproductive History Menstrual Menopause type: natural History History 0 Para Hx # Term Pregnancies Multiple births Hx # Pregnancies Ectopic pregnancies AB induced Hx Number of Living Children AB spontaneous Meds Allergies and Home Medications Allergies Allergy/AdvReac Type Severity Reaction Status Date / Time Iodinated Contrast Media Allergy Unknown Rash Verified 10/21/25 11:40 (Iodinated Contrast- Oral and IV Dye) Penicillins Allergy Unknown Unknown- Verified 10/21/25 11:40 Family history Sulfa (Sulfonamide Allergy Unknown Unknown- Verified 10/21/25 11:40 Antibiotics) Family history Home Medications ?Medication ?Instructions ?Recorded ?Confirmed ?Type lancets 30 gauge (BD Ultra-Fine II #100 ea 10/28/20 10/21/25 Rx Lancets) loratadine 10 mg tablet 10 mg PO DAILY 04/28/21 10/21/25 History nebulizers (Aeroneb Go Nebulizer) #1 ea 05/15/21 10/21/25 Rx albuterol sulfate 90 mcg/actuation 2 puff inhalation Q6H PRN 08/28/24 10/21/25 Rx aerosol inhaler shortness of breath or wheezing #8.5 grams metformin 500 mg tablet,extended 1,000 mg (2 x 500 mg) PO BID #360 12/17/24 10/21/25 Rx release 24 hr tabs omeprazole magnesium 2.5 mg oral 10 mg PO ONCE 02/09/25 10/21/25 History suspension,delayed release (Prilosec) amitriptyline 25 mg tablet 25 mg PO QHS #60 tabs 07/26/25 10/21/25 Rx blood-glucose sensor (FreeStyle #3 ea 08/31/25 10/21/25 Rx Gal 2 Plus Sensor device) ezetimibe 10 mg tablet (Zetia) 10 mg PO DAILY #90 tabs 08/31/25 10/21/25 Rx flash glucose scanning reader #1 ea 08/31/25 10/21/25 Rx (FreeStyle Gal 2 [place]) lisinopril 10 mg tablet 10 mg PO DAILY #90 tabs 08/31/25 10/21/25 Rx levothyroxine 75 mcg tablet 75 mcg PO DAILY #90 tabs 09/13/25 10/21/25 Rx hydrochlorothiazide 25 mg tablet 12.5 mg PO DAILY 10/21/25 10/21/25 History levothyroxine 100 mcg tablet 75 mcg PO DAILY 10/21/25 10/21/25 History Exam Narrative Exam Narrative: 60 years old female patient appearing older than stated age, icteric sclera, minimal JVD, alert and oriented x 2, no acute neurological focal deficit, clear lungs, with diminished right base, S1-S2 normal PPP x 4, bilateral pitting edema to feet and ankles stopping below the knees, abdomen is round slightly distended soft nontender, negative Cevallos sign, no CVA tenderness Results Labs 10/21/25 10:32 10/21/25 10:32 Labs: Laboratory Results - last 24 hr 10/21/25 10/21/25 10/21/25 10:32 11:50 11:59 WBC 6.78 RBC 3.43 L Hgb 12.0 Hct 34.2 L MCV 100 H MCH 35.0 H MCHC 35.1 RDW 13.5 Plt Count 126 L MPV 9.4 Immature Gran % 0.1 Neutrophils % 47.5 Lymphocytes % 33.0 Monocytes % 10.8 Eosinophils % 6.5 Basophils % 2.1 Nucleated RBC % 0.0 Absolute Neutrophils 3.22 Absolute Lymphocytes 2.24 Absolute Monocytes 0.73 Absolute Eosinophils 0.44 Absolute Basophils 0.14 PT 13.0 H INR 1.3 H VBG pH VBG pCO2 VBG pO2 VBG HCO3 VBG Total CO2 VBG O2 Saturation VBG Base Excess VBG Lactate 7.0 H* Sodium 136 Potassium 3.3 L Chloride 96 L Carbon Dioxide 23.4 Anion Gap 16.3 H BUN 11 Creatinine 0.53 L Est GFR (CKD-EPI 2020) 117.44 Glucose 158 H Calcium 9.6 Magnesium 1.0 L Total Bilirubin 4.50 H Conjugated Bilirubin 2.0 H AST 63 H ALT 31 Alkaline Phosphatase 182 H Ammonia 108 H Total Protein 7.0 Albumin 3.6 Lipase 45 TSH Urine Color Urine Clarity Urine pH Ur Specific [place] Urine Protein Urine Ketones Urine Blood Urine Nitrite Urine Bilirubin Urine Urobilinogen Ur Leukocyte Esterase Urine Glucose Ethyl Alcohol < 3.0 10/21/25 10/21/25 13:00 13:17 WBC RBC Hgb Hct MCV MCH MCHC RDW Plt Count MPV Immature Gran % Neutrophils % Lymphocytes % Monocytes % Eosinophils % Basophils % Nucleated RBC % Absolute Neutrophils Absolute Lymphocytes Absolute Monocytes Absolute Eosinophils Absolute Basophils PT INR VBG pH 7.45 H VBG pCO2 38 L VBG pO2 22 VBG HCO3 26 VBG Total CO2 24 VBG O2 Saturation 37 VBG Base Excess 2 VBG Lactate Sodium Potassium Chloride Carbon Dioxide Anion Gap BUN Creatinine Est GFR (CKD-EPI 2020) Glucose Calcium Magnesium Total Bilirubin Conjugated Bilirubin AST ALT Alkaline Phosphatase Ammonia Total Protein Albumin Lipase TSH 1.44 Urine Color Yellow Urine Clarity Clear Urine pH 6.5 Ur Specific [place] 1.015 Urine Protein Negative Urine Ketones Trace H Urine Blood Negative Urine Nitrite Negative Urine Bilirubin Negative Urine Urobilinogen 4.0 H Ur Leukocyte Esterase Negative Urine Glucose Negative Ethyl Alcohol Last Vital Signs Temp 37.0 C 10/21/25 10:10 Pulse 104 H 10/21/25 12:50 Resp 13 10/21/25 12:50 BP 142/65 H 10/21/25 12:46 Pulse Ox 96 10/21/25 12:50 VTE Prohylaxis Risk Level: Moderate/High Risk Contraindications: Other (INR 1.3, paracentesis in AM ) Prophylaxis: Patient ambulatory Time Spent Time spent with Patient: >75 minutes Time was spent: preparing to see the patient(eg.review tests), obtaining and/or reviewing separately otained hiistory, ordering medications,tests, procedures, referring, communicating with other health patient care assistant, indepentently interpreting results, counseling the patient, care coordination and other
[2025-10-21] MEDS: Potassium Chloride 20 MEQ TABCR 40 MEQ PO (14:45)
[2025-10-21] MEDS: Lactulose 20 GM/30 ML CUP 30 GM PO (15:06)
[2025-10-21 15:15] LABS: Lab Add On Test DONE
[2025-10-21 15:15] LABS: Lab Add On Test DONE
--- NOTE | 2025-10-21 15:26 | SCONE_ITS ---
Date of service: 10/21/25 Time of Service: 15:26 Assessment and Plan Assessment and plan (1) Ascites: Status: Acute Assessment and plan: I did perform a limited ultrasound of the peritoneal cavity today in the emergency department. These images were not saved. However, the ascites is fairly well distributed throughout the peritoneal cavity, with no large pockets for access. At the moment I would consider paracentesis to be of fairly high risk. With a pre-existing diagnosis of RODRIGUEZ, and some cirrhotic features on the CT scan, I think there is compelling evidence to support portal hypertension as the primary source of the cirrhosis. In that regard, at the moment, I think the risks of paracentesis outweigh the benefit. I can certainly repeat an ultrasound tomorrow to reassess. History of Present Illness History of Present Illness Chief Complaint: Ascites Narrative: Idalia is 60 years old. She was directed to the ED by her primary care physician today because of abnormalities seen on an outpatient abdominal ultrasound. Idalia complains of some increasing fatigue and lower extremity swelling. She says this has been getting worse over several weeks. Otherwise she feels like she is in her usual state of health. As best I can tell, she was seen during a routine well patient visit in August. Liver function was tested maybe because of some history of RODRIGUEZ. Total bilirubin was higher than last year. An ultrasound was ordered which was performed 2 days ago revealing ascites, and she was sent to the emergency department. In the ER she underwent a CT scan of the abdomen and pelvis that confirmed the presence of ascites. I was consulted for paracentesis. [place] of [place] [facility] [place] there in 2020 and combined alcoholic and non-alcoholic steatohepatitis was suscpected. It appears that Idalia was not able to complete the suggested diagnostic work up at that time. Review of Systems Constitutional Constitutional: Reports fatigue, Denies fever(s), Reports lethargy and Denies weight loss Eyes Eyes: Reports system reviewed and no additional complaints, except as documented ENT Ears, Nose, Mouth, and Throat: Reports system reviewed and no additional complaints, except as documented Cardiovascular Cardiovascular: Denies chest pain, Denies dyspnea and Reports dyspnea on exertion Respiratory Respiratory: Denies chest congestion, Denies cough, Denies dyspnea and Reports dyspnea on exertion Gastrointestinal Gastrointestinal: Denies abdominal pain, Reports bloating, Denies nausea and Denies vomiting Genitourinary Genitourinary: Reports system reviewed and no additional complaints, except as documented Musculoskeletal Musculoskeletal: Reports system reviewed and no additional complaints, except as documented Endocrine Endocrine: Reports fatigue Hematologic/Lymphatic Hematologic/Lymphatic: Reports easy bruising PFSH All Active Problems Diabetes (Chronic) SBP (spontaneous bacterial peritonitis) (Acute) Lactic acidosis (Acute) 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 Fell and hit head, lost consciousness. Undiagnosed cardiac murmurs (Acute) Neuropathy (Acute) Type 2 diabetes mellitus (Chronic) Nonalcoholic steatohepatitis (RODRIGUEZ) (Chronic) Has both RODRIGUEZ and LOUIE per [facility] Alcoholic steatohepatitis (Chronic) Has both RODRIGUEZ and LOUIE per [facility] Essential hypertension (Chronic) Hyperlipidemia (Chronic) Hypothyroidism (Chronic) Cigarette smoker (Chronic) Annual LDCT Osteoarthritis (Chronic) Alcohol abuse (Chronic) 04/2022- 3-4 drinks a day Surgical History S/P right knee arthroscopy (08/31/19) S/P dilatation and curettage S/P appendectomy With subsequent lysis of adhesions x 2 S/P hernia repair (~2006) Bilateral femoral hernia repairs S/P cervical discectomy (07/08/12) With fusion of C5-C6 and C6-C7 for fall off ladder; done at [facility] [place]. Green S/P left breast biopsy benign S/P right rotator cuff repair Family History Mother Essential hypertension Hyperlipidemia Father , at 80 of liver cancer Essential hypertension Depression Hyperlipidemia Liver cancer Type 2 diabetes mellitus Brother Essential hypertension Type 2 diabetes mellitus Maternal Grandfather , in his 40s of [place] Heart disease Myocardial infarction Maternal Grandmother , in her 80s of CHF Heart disease Paternal Grandfather , in his 80s COPD (chronic obstructive pulmonary disease) Heart disease Depression Essential hypertension Paternal Grandmother , at 79 of colon cancer Colon cancer Hypertension Type 2 diabetes mellitus Hyperlipidemia Diabetes Social History (Updated 09/01/25 @ 13:24 by Shirlene Poole) Smoking/Tobacco Use Status: Current every day Tobacco Type: cigarettes Tobacco: How many years used: 42 Quit status: not considering quitting Second Hand Exposure: Yes Smoking risk assessment performed?: Yes Alcohol Intake: former Drug use: Never Substance use type: does not use Adopted: No Caregiver/Support person: No Household members: significant other Housing: house Communication Needs: None Education Level: college Do you need help understanding health information?: Never current occupation: [employer] Pets and animals: Yes Pets and animals: cat(s), dog(s), horse(s) and farm animals Sexually active: No Do you think of yourself as: lesbian/manuel/homosexual Current gender identity: female What is your relationship status?: How often do you talk on the phone with friends or family?: twice per week How often do you get together with friends or relatives?: once per week Do you belong to any clubs or organized social groups?: no Panel score (0-1 are the most socially isolated patients): 2 Sonya/Protestant: No preference Special sonya needs: No Agree to transfusion: Yes Seatbelt use: always Helmet use: Yes Drive intox or ride w/intox cpr ambulance driver: No Female Reproductive History Menstrual Menopause type: natural History History 2 0 Para Hx # Term Pregnancies Multiple births Hx # Pregnancies Ectopic pregnancies AB induced Hx Number of Living Children AB spontaneous Exam Const General: cooperative and no acute distress HENMT Head: normal to inspection Neck Neck: normal visual inspection, full ROM and no lymphadenopathy Resp Effort & Inspection: normal respiratory effort Cardio Rate: regular rate Rhythm: regular rhythm Heart Sounds: S1 normal and S2 normal GI Inspection: distended Palpation: firm, nontender and ascites Percussion: dullness to percussion Extrem Right lower extremity: edema Left lower extremity: edema Results Last Vital Signs Temp 98.6 F 10/21/25 10:10 Pulse 107 H 10/21/25 14:41 Resp 22 10/21/25 14:41 BP 135/78 10/21/25 14:30 Pulse Ox 94 10/21/25 14:41 Labs 10/21/25 10:32 10/21/25 10:32 Labs: Laboratory Results - last 24 hr 10/21/25 10/21/25 10/21/25 10:32 11:50 11:59 WBC 6.78 RBC 3.43 L Hgb 12.0 Hct 34.2 L MCV 100 H MCH 35.0 H MCHC 35.1 RDW 13.5 Plt Count 126 L MPV 9.4 Immature Gran % 0.1 Neutrophils % 47.5 Lymphocytes % 33.0 Monocytes % 10.8 Eosinophils % 6.5 Basophils % 2.1 Nucleated RBC % 0.0 Absolute Neutrophils 3.22 Absolute Lymphocytes 2.24 Absolute Monocytes 0.73 Absolute Eosinophils 0.44 Absolute Basophils 0.14 PT 13.0 H INR 1.3 H VBG pH VBG pCO2 VBG pO2 VBG HCO3 VBG Total CO2 VBG O2 Saturation VBG Base Excess VBG Lactate 7.0 H* Sodium 136 Potassium 3.3 L Chloride 96 L Carbon Dioxide 23.4 Anion Gap 16.3 H BUN 11 Creatinine 0.53 L Est GFR (CKD-EPI 2020) 117.44 Glucose 158 H Calcium 9.6 Magnesium 1.0 L Total Bilirubin 4.50 H Conjugated Bilirubin 2.0 H AST 63 H ALT 31 Alkaline Phosphatase 182 H Ammonia 108 H Total Protein 7.0 Albumin 3.6 Lipase 45 TSH Urine Color Urine Clarity Urine pH Ur Specific [place] Urine Protein Urine Ketones Urine Blood Urine Nitrite Urine Bilirubin Urine Urobilinogen Ur Leukocyte Esterase Urine Glucose Ethyl Alcohol < 3.0 Add-On Test Request 10/21/25 10/21/25 10/21/25 12:41 13:00 13:17 WBC RBC Hgb Hct MCV MCH MCHC RDW Plt Count MPV Immature Gran % Neutrophils % Lymphocytes % Monocytes % Eosinophils % Basophils % Nucleated RBC % Absolute Neutrophils Absolute Lymphocytes Absolute Monocytes Absolute Eosinophils Absolute Basophils PT INR VBG pH 7.45 H VBG pCO2 38 L VBG pO2 22 VBG HCO3 26 VBG Total CO2 24 VBG O2 Saturation 37 VBG Base Excess 2 VBG Lactate Sodium Potassium Chloride Carbon Dioxide Anion Gap BUN Creatinine Est GFR (CKD-EPI 2020) Glucose Calcium Magnesium Total Bilirubin Conjugated Bilirubin AST ALT Alkaline Phosphatase Ammonia Total Protein Albumin Lipase TSH 1.44 Urine Color Yellow Urine Clarity Clear Urine pH 6.5 Ur Specific [place] 1.015 Urine Protein Negative Urine Ketones Trace H Urine Blood Negative Urine Nitrite Negative Urine Bilirubin Negative Urine Urobilinogen 4.0 H Ur Leukocyte Esterase Negative Urine Glucose Negative Ethyl Alcohol Add-On Test Request DONE 10/21/25 10/21/25 15:12 15:14 WBC RBC Hgb Hct MCV MCH MCHC RDW Plt Count MPV Immature Gran % Neutrophils % Lymphocytes % Monocytes % Eosinophils % Basophils % Nucleated RBC % Absolute Neutrophils Absolute Lymphocytes Absolute Monocytes Absolute Eosinophils Absolute Basophils PT INR VBG pH VBG pCO2 VBG pO2 VBG HCO3 VBG Total CO2 VBG O2 Saturation VBG Base Excess VBG Lactate 7.8 H* Sodium Potassium Chloride Carbon Dioxide Anion Gap BUN Creatinine Est GFR (CKD-EPI 2020) Glucose Calcium Magnesium Total Bilirubin Conjugated Bilirubin AST ALT Alkaline Phosphatase Ammonia Total Protein Albumin Lipase TSH Urine Color Urine Clarity Urine pH Ur Specific [place] Urine Protein Urine Ketones Urine Blood Urine Nitrite Urine Bilirubin Urine Urobilinogen Ur Leukocyte Esterase Urine Glucose Ethyl Alcohol Add-On Test Request DONE Imaging Abdomen CT scan report/results: report reviewed and image reviewed CT scan - pelvis: report reviewed and image reviewed
[2025-10-21] MEDS: Insulin Aspart 300 UNITS/3 ML PEN SC (17:08)
[2025-10-21] MEDS: Furosemide 20 MG/2 ML VIAL IVP (17:09)
--- NOTE | 2025-10-21 17:18 | W.PC.ACHO ---
Registration Status: ADM IN Primary Language: Preferred Language: Upper Sorbian ED Information & Data Chief Complaint Abd Prob 10/21/25 13:43 Triage Note pt been dealing with upset 10/21/25 10:07 stomach, has outpt US, her dr advised she needs to come here due to gallstones/ fluid/infection in gallbladder (Last Reviewed 07/07/25 @ 16:36 by Melissa Duong) S/P right knee arthroscopy (08/31/19) S/P dilatation and curettage S/P appendectomy S/P hernia repair (~2006) S/P cervical discectomy (07/08/12) S/P left breast biopsy S/P right rotator cuff repair Most Recent Vital Signs Temperature 36.7 C 10/21/25 16:41 Pulse 104 H 10/21/25 16:41 Pulse Rhythm Regular 10/21/25 16:41 Pulse 107 H 10/21/25 14:41 Respiratory Rate 16 10/21/25 16:41 Respiratory Effort Normal, Non-Labored 10/21/25 16:41 Respiratory Depth Normal 10/21/25 16:41 Respiratory Pattern Normal 10/21/25 16:41 Blood Pressure 139/64 10/21/25 16:41 Blood Pressure Mean 98 10/21/25 14:30 Pulse Oximetry 96 10/21/25 16:41 Oxygen Delivery Method Room Air 10/21/25 16:41 Oxygen Flow Rate 0 10/21/25 16:41 Pain Level 0 10/21/25 10:10 Allergies Iodinated Contrast Media (Iodinated Contrast- Oral and IV Dye) Allergy (Unknown, Verified 10/21/25 11:40) Rash Penicillins Allergy (Unknown, Verified 10/21/25 11:40) Unknown- Family history Sulfa (Sulfonamide Antibiotics) Allergy (Unknown, Verified 10/21/25 11:40) Unknown- Family history Active Medications Generic Name Dose Route Start Last Admin Trade Name Freq PRN Reason Stop Dose Admin Furosemide 20 mg 10/21/25 16:39 10/21/25 17:09 Furosemide 20 Mg/2 Ml Vial IVP 20 mg BID@0800,1600 AARTI Administration Insulin Aspart 0 units 10/21/25 17:00 10/21/25 17:08 Insulin Aspart 300 Units/3 Ml Pen SC 2 units 0800,1200,1700 AARTI Administration Protocol Sodium Chloride 0 ml 10/21/25 12:21 10/21/25 17:09 Normal Saline Flush 10 Ml Syr IVP 10 ml PRN PRN Administration IV IV Catheter Type [Right Saline Lock Antecubital] IV Catheter Gauge [Right 18 Antecubital] Diet Orders Category Date Time Status Diabetes Consistent CHO/Heart Healthy [DIET] Nutrition 10/21/25 Dinner Active Diagnostics 10/21/25 10/21/25 10/21/25 Range/Units 15:14 15:12 13:17 WBC (4.4-10.8) 10^3/uL RBC (3.93-5.22) 10^6/uL Hgb (11.2-15.7) g/dL Hct (36.0-46.0) % MCV (80-95) fL MCH (27.0-33.0) pg MCHC (32.0-36.0) % RDW (11.7-14.6) % Plt Count (130-400) 10^3/uL MPV (8.0-11.0) fL Immature Gran % % Neutrophils % % Lymphocytes % % Monocytes % % Eosinophils % % Basophils % % Nucleated RBC % (0.0-0.3) % Absolute Neutrophils (1.2-6.7) 10^3/uL Absolute Lymphocytes (1.2-3.4) 10^3/uL Absolute Monocytes (0.1-0.8) 10^3/uL Absolute Eosinophils (0.0-0.7) 10^3/uL Absolute Basophils (0.0-0.2) 10^3/uL PT (9.1-11.1) sec INR (0.9-1.1) VBG pH (7.31-7.41) VBG pCO2 (41-51) mmHg VBG pO2 mmHg VBG HCO3 (23-28) mmol/L VBG Total CO2 (24-29) mmol/L VBG O2 Saturation % VBG Base Excess (-2-3) mmol/L VBG Lactate 7.8 H* (<or=2.0) mmol/L Sodium (136-145) mmol/L Potassium (3.5-5.1) mmol/L Chloride (98-107) mmol/L Carbon Dioxide (20.0-31.0) mmol/L Anion Gap (3-11) mmol/L BUN (9-23) mg/dL Creatinine (0.55-1.02) mg/dL Est GFR (CKD-EPI 2020) (mL/min/1.73m2) Glucose (74-106) mg/dL Calcium (8.3-10.6) mg/dL Magnesium (1.6-2.6) mg/dL Total Bilirubin (0.2-1.2) mg/dL Conjugated Bilirubin (<=0.3) mg/dL AST (<34) U/L ALT (10-49) U/L Alkaline Phosphatase (46-116) U/L Ammonia (11-32) umol/L Total Protein (5.7-8.2) g/dL Albumin (3.2-5.0) g/dL Lipase (<53) U/L TSH (0.55-4.78) uIU/mL Urine Color Yellow (Yellow) Urine Clarity Clear (Clear) Urine pH 6.5 (5-8) Ur Specific [place] 1.015 (1.005-1.025) Urine Protein Negative (Neg-Trace) mg/dL Urine Ketones Trace H (Negative) mg/dL Urine Blood Negative (Negative) Urine Nitrite Negative (Negative) Urine Bilirubin Negative (Negative) Urine Urobilinogen 4.0 H (Up to 0.2) mg/dL Ur Leukocyte Esterase Negative (Negative) Urine Glucose Negative (Negative) mg/dL Alcohol Metab Comm Pending Ethyl Alcohol (<3) mg/dL PEth 16:0/18.1 (POPEth) Pending PEth 16:0/18.2 (PLPEth) Pending Hep Bs Antigen Hep Bs Antibody Hep Bs Antibody, Quant Hep B Core Total Ab Hepatitis C Antibody Add-On Test Request DONE 10/21/25 10/21/25 10/21/25 Range/Units 13:00 12:41 11:59 WBC (4.4-10.8) 10^3/uL RBC (3.93-5.22) 10^6/uL Hgb (11.2-15.7) g/dL Hct (36.0-46.0) % MCV (80-95) fL MCH (27.0-33.0) pg MCHC (32.0-36.0) % RDW (11.7-14.6) % Plt Count (130-400) 10^3/uL MPV (8.0-11.0) fL Immature Gran % % Neutrophils % % Lymphocytes % % Monocytes % % Eosinophils % % Basophils % % Nucleated RBC % (0.0-0.3) % Absolute Neutrophils (1.2-6.7) 10^3/uL Absolute Lymphocytes (1.2-3.4) 10^3/uL Absolute Monocytes (0.1-0.8) 10^3/uL Absolute Eosinophils (0.0-0.7) 10^3/uL Absolute Basophils (0.0-0.2) 10^3/uL PT (9.1-11.1) sec INR (0.9-1.1) VBG pH 7.45 H (7.31-7.41) VBG pCO2 38 L (41-51) mmHg VBG pO2 22 mmHg VBG HCO3 26 (23-28) mmol/L VBG Total CO2 24 (24-29) mmol/L VBG O2 Saturation 37 % VBG Base Excess 2 (-2-3) mmol/L VBG Lactate 7.0 H* (<or=2.0) mmol/L Sodium (136-145) mmol/L Potassium (3.5-5.1) mmol/L Chloride (98-107) mmol/L Carbon Dioxide (20.0-31.0) mmol/L Anion Gap (3-11) mmol/L BUN (9-23) mg/dL Creatinine (0.55-1.02) mg/dL Est GFR (CKD-EPI 2020) (mL/min/1.73m2) Glucose (74-106) mg/dL Calcium (8.3-10.6) mg/dL Magnesium (1.6-2.6) mg/dL Total Bilirubin (0.2-1.2) mg/dL Conjugated Bilirubin (<=0.3) mg/dL AST (<34) U/L ALT (10-49) U/L Alkaline Phosphatase (46-116) U/L Ammonia (11-32) umol/L Total Protein (5.7-8.2) g/dL Albumin (3.2-5.0) g/dL Lipase (<53) U/L TSH 1.44 (0.55-4.78) uIU/mL Urine Color (Yellow) Urine Clarity (Clear) Urine pH (5-8) Ur Specific [place] (1.005-1.025) Urine Protein (Neg-Trace) mg/dL Urine Ketones (Negative) mg/dL Urine Blood (Negative) Urine Nitrite (Negative) Urine Bilirubin (Negative) Urine Urobilinogen (Up to 0.2) mg/dL Ur Leukocyte Esterase (Negative) Urine Glucose (Negative) mg/dL Alcohol Metab Comm Ethyl Alcohol (<3) mg/dL PEth 16:0/18.1 (POPEth) PEth 16:0/18.2 (PLPEth) Hep Bs Antigen Hep Bs Antibody Hep Bs Antibody, Quant Hep B Core Total Ab Hepatitis C Antibody Add-On Test Request DONE 10/21/25 10/21/25 Range/Units 11:50 10:32 WBC 6.78 (4.4-10.8) 10^3/uL RBC 3.43 L (3.93-5.22) 10^6/uL Hgb 12.0 (11.2-15.7) g/dL Hct 34.2 L (36.0-46.0) % MCV 100 H (80-95) fL MCH 35.0 H (27.0-33.0) pg MCHC 35.1 (32.0-36.0) % RDW 13.5 (11.7-14.6) % Plt Count 126 L (130-400) 10^3/uL MPV 9.4 (8.0-11.0) fL Immature Gran % 0.1 % Neutrophils % 47.5 % Lymphocytes % 33.0 % Monocytes % 10.8 % Eosinophils % 6.5 % Basophils % 2.1 % Nucleated RBC % 0.0 (0.0-0.3) % Absolute Neutrophils 3.22 (1.2-6.7) 10^3/uL Absolute Lymphocytes 2.24 (1.2-3.4) 10^3/uL Absolute Monocytes 0.73 (0.1-0.8) 10^3/uL Absolute Eosinophils 0.44 (0.0-0.7) 10^3/uL Absolute Basophils 0.14 (0.0-0.2) 10^3/uL PT 13.0 H (9.1-11.1) sec INR 1.3 H (0.9-1.1) VBG pH (7.31-7.41) VBG pCO2 (41-51) mmHg VBG pO2 mmHg VBG HCO3 (23-28) mmol/L VBG Total CO2 (24-29) mmol/L VBG O2 Saturation % VBG Base Excess (-2-3) mmol/L VBG Lactate (<or=2.0) mmol/L Sodium 136 (136-145) mmol/L Potassium 3.3 L (3.5-5.1) mmol/L Chloride 96 L (98-107) mmol/L Carbon Dioxide 23.4 (20.0-31.0) mmol/L Anion Gap 16.3 H (3-11) mmol/L BUN 11 (9-23) mg/dL Creatinine 0.53 L (0.55-1.02) mg/dL Est GFR (CKD-EPI 2020) 117.44 (mL/min/1.73m2) Glucose 158 H (74-106) mg/dL Calcium 9.6 (8.3-10.6) mg/dL Magnesium 1.0 L (1.6-2.6) mg/dL Total Bilirubin 4.50 H (0.2-1.2) mg/dL Conjugated Bilirubin 2.0 H (<=0.3) mg/dL AST 63 H (<34) U/L ALT 31 (10-49) U/L Alkaline Phosphatase 182 H (46-116) U/L Ammonia 108 H (11-32) umol/L Total Protein 7.0 (5.7-8.2) g/dL Albumin 3.6 (3.2-5.0) g/dL Lipase 45 (<53) U/L TSH (0.55-4.78) uIU/mL Urine Color (Yellow) Urine Clarity (Clear) Urine pH (5-8) Ur Specific [place] (1.005-1.025) Urine Protein (Neg-Trace) mg/dL Urine Ketones (Negative) mg/dL Urine Blood (Negative) Urine Nitrite (Negative) Urine Bilirubin (Negative) Urine Urobilinogen (Up to 0.2) mg/dL Ur Leukocyte Esterase (Negative) Urine Glucose (Negative) mg/dL Alcohol Metab Comm Ethyl Alcohol < 3.0 (<3) mg/dL PEth 16:0/18.1 (POPEth) PEth 16:0/18.2 (PLPEth) Hep Bs Antigen Pending Hep Bs Antibody Pending Hep Bs Antibody, Quant Pending Hep B Core Total Ab Pending Hepatitis C Antibody Pending Add-On Test Request 10/21/25 11:58 Blood Culture - Pending Blood 10/21/25 12:00 Blood Culture - Pending Blood [id number] Documentation Fingerstick Glucose Start: 10/21/25 16:39 Freq: AC & HS Status: Active Protocol: Activity Type Activity Date Activity User E-sign Co-sign Detail Recorded Client Recorded Date Recorded By Document 10/21/25 16:44 BKG DAEMON(3) [id number] 10/21/25 16:55 BKG DAEMON(4) Intake and Output - 24 Hour Total 10/21/25 10:02 thru 10/21/25 16:41 Intake Total 426.25 Balance 426.25 Weight 86.636 kg Intake: IV 426.25 Other: Urine Appearance Clear Falls Risk Assessment History of Falls Previous History 10/21/25 16:41 Contributing Factors Impairments,Incontinence 10/21/25 16:41 Ambulatory Aids Uses ambulatory device 10/21/25 16:41 Tubes/Lines W/no contributing factors 10/21/25 16:41 Gait Evaluation W/no contributing factors 10/21/25 16:41 Cognition No cognitive impairment 10/21/25 16:41 Fall Total Score 56 10/21/25 16:41 Level of Risk High Risk 10/21/25 16:41 Problems (Last Reviewed 07/07/25 @ 16:36 by Melissa Duong) Ascites (Acute) Attestation Statement: By documenting the first initial, last name, and credentials of the reporting nurse below, both parties acknowledge that all relevant information regarding the patient handoff has been communicated, and that all questions have been addressed to ensure continuity and safety of care. Additional Patient Information/Comments: Report Received From: Beth Tran ED RN. report at [id number].
[2025-10-21] MEDS: ALBUMIN HUMAN 25 GM/100 ML BTL IVPB (18:13)
[2025-10-21] MEDS: Lactulose 20 GM/30 ML CUP PO (21:17)
[2025-10-22] MEDS: cefTRIAXone 2 GM/50 ML BAG IVPB ×2 (00:38→23:49)
[2025-10-22 03:55] VITALS: BP 126/73; PULSE 98; RESP 17; TEMP 36.3; O2SAT 96
[2025-10-22] MEDS: Levothyroxine 75 MCG TAB PO (06:28)
[2025-10-22 07:15] LABS: Magnesium 1.7 mg/dL (1.6-2.6)
--- NOTE | 2025-10-22 07:15 | W.PM.PROGNOT ---
Date of Service Date of service: 10/22/25 Time of Service: 07:15 Assessment and Plan Assessment and plan (1) Ascites: Status: Acute Assessment and plan: Similar to last night, based on what I see on the ultrasound, I considered paracentesis to be relatively high risk. Again, I do not find a clinical picture consistent with spontaneous bacterial peritonitis. And based on her medical history, the source of her ascites seems to be most consistent with cirrhosis. I would continue treating portal hypertension and see how she responds. Obviously, we could reconsider paracentesis if her ascites continues to accumulate. Subjective Subjective Interval history since last seen: Idalia had a little bit of difficulty sleeping overnight, which she attributes it mostly to the basic environment of the hospital. Otherwise she feels okay. She denies any abdominal pain this morning, and has some appetite. Exam GI Other: Abdominal exam remains nontender. Objective Last Vital Signs Temp 97.3 F L 10/22/25 03:55 Pulse 98 H 10/22/25 03:55 Resp 17 10/22/25 03:55 BP 126/73 10/22/25 03:55 Pulse Ox 96 10/22/25 03:55 Laboratory Results - last 24 hr 10/21/25 10/21/25 10/21/25 10:32 11:50 11:59 WBC 6.78 RBC 3.43 L Hgb 12.0 Hct 34.2 L MCV 100 H MCH 35.0 H MCHC 35.1 RDW 13.5 Plt Count 126 L MPV 9.4 Immature Gran % 0.1 Neutrophils % 47.5 Lymphocytes % 33.0 Monocytes % 10.8 Eosinophils % 6.5 Basophils % 2.1 Nucleated RBC % 0.0 Absolute Neutrophils 3.22 Absolute Lymphocytes 2.24 Absolute Monocytes 0.73 Absolute Eosinophils 0.44 Absolute Basophils 0.14 PT 13.0 H INR 1.3 H VBG pH VBG pCO2 VBG pO2 VBG HCO3 VBG Total CO2 VBG O2 Saturation VBG Base Excess VBG Lactate 7.0 H* Sodium 136 Potassium 3.3 L Chloride 96 L Carbon Dioxide 23.4 Anion Gap 16.3 H BUN 11 Creatinine 0.53 L Est GFR (CKD-EPI 2020) 117.44 Glucose 158 H Calcium 9.6 Magnesium 1.0 L Total Bilirubin 4.50 H Conjugated Bilirubin 2.0 H AST 63 H ALT 31 Alkaline Phosphatase 182 H Ammonia 108 H Total Protein 7.0 Albumin 3.6 Lipase 45 TSH Urine Color Urine Clarity Urine pH Ur Specific [place] Urine Protein Urine Ketones Urine Blood Urine Nitrite Urine Bilirubin Urine Urobilinogen Ur Leukocyte Esterase Urine Glucose Ethyl Alcohol < 3.0 Add-On Test Request 10/21/25 10/21/25 10/21/25 12:41 13:00 13:17 WBC RBC Hgb Hct MCV MCH MCHC RDW Plt Count MPV Immature Gran % Neutrophils % Lymphocytes % Monocytes % Eosinophils % Basophils % Nucleated RBC % Absolute Neutrophils Absolute Lymphocytes Absolute Monocytes Absolute Eosinophils Absolute Basophils PT INR VBG pH 7.45 H VBG pCO2 38 L VBG pO2 22 VBG HCO3 26 VBG Total CO2 24 VBG O2 Saturation 37 VBG Base Excess 2 VBG Lactate Sodium Potassium Chloride Carbon Dioxide Anion Gap BUN Creatinine Est GFR (CKD-EPI 2020) Glucose Calcium Magnesium Total Bilirubin Conjugated Bilirubin AST ALT Alkaline Phosphatase Ammonia Total Protein Albumin Lipase TSH 1.44 Urine Color Yellow Urine Clarity Clear Urine pH 6.5 Ur Specific [place] 1.015 Urine Protein Negative Urine Ketones Trace H Urine Blood Negative Urine Nitrite Negative Urine Bilirubin Negative Urine Urobilinogen 4.0 H Ur Leukocyte Esterase Negative Urine Glucose Negative Ethyl Alcohol Add-On Test Request DONE 10/21/25 10/21/25 15:12 15:14 WBC RBC Hgb Hct MCV MCH MCHC RDW Plt Count MPV Immature Gran % Neutrophils % Lymphocytes % Monocytes % Eosinophils % Basophils % Nucleated RBC % Absolute Neutrophils Absolute Lymphocytes Absolute Monocytes Absolute Eosinophils Absolute Basophils PT INR VBG pH VBG pCO2 VBG pO2 VBG HCO3 VBG Total CO2 VBG O2 Saturation VBG Base Excess VBG Lactate 7.8 H* Sodium Potassium Chloride Carbon Dioxide Anion Gap BUN Creatinine Est GFR (CKD-EPI 2020) Glucose Calcium Magnesium Total Bilirubin Conjugated Bilirubin AST ALT Alkaline Phosphatase Ammonia Total Protein Albumin Lipase TSH Urine Color Urine Clarity Urine pH Ur Specific [place] Urine Protein Urine Ketones Urine Blood Urine Nitrite Urine Bilirubin Urine Urobilinogen Ur Leukocyte Esterase Urine Glucose Ethyl Alcohol Add-On Test Request DONE VTE Prohylaxis Risk Level: Moderate/High Risk Contraindications: Other (INR 1.3, paracentesis in AM ) Prophylaxis: Patient ambulatory Time Spent with Patient Time Spent with Patient: 25-34 minutes Time was spent: preparing to see the patient(eg.review tests), referring, communicating with other health child care nurse and counseling the patient
[2025-10-22 07:16] LABS: ALT 27 U/L (10-49); AST 50 U/L (<34); Albumin 3.5 g/dL (3.2-5.0); Alkaline Phosphatase 117 U/L (46-116); Anion Gap 11.6 mmol/L (3-11); BUN 12 mg/dL (9-23); Bilirubin, Total 4.30 mg/dL (0.2-1.2); CO2 24.1 mmol/L (20.0-31.0); Calcium 9.0 mg/dL (8.3-10.6); Chloride 99 mmol/L (98-107); Glucose 209 mg/dL (74-106); Potassium 3.6 mmol/L (3.5-5.1); Sodium 135 mmol/L (136-145); Total Protein 6.3 g/dL (5.7-8.2)
[2025-10-22 07:36] LABS: Abs Immature Grans 0.03 10^3/uL (0.0-0.06); HCT 28.8 % (36.0-46.0); HGB 10.1 g/dL (11.2-15.7); Immature Grans % 0.4 %; MCH 34.6 pg (27.0-33.0); MCHC 35.1 % (32.0-36.0); MCV 99 fL (80-95); MPV 9.6 fL (8.0-11.0); Platelet Count 113 10^3/uL (130-400); RBC 2.92 10^6/uL (3.93-5.22); RDW 13.3 % (11.7-14.6); RDW-SD 47.8 fL; WBC 6.72 10^3/uL (4.4-10.8)
[2025-10-22 07:55] VITALS: BP 114/66; PULSE 95; RESP 17; TEMP 36.6; O2SAT 95
[2025-10-22] MEDS: Lactulose 20 GM/30 ML CUP PO (08:16)
[2025-10-22] MEDS: Furosemide 20 MG/2 ML VIAL IVP ×2 (08:16→15:46)
[2025-10-22] MEDS: Insulin Aspart 300 UNITS/3 ML PEN SC ×4 (08:17→23:50)
[2025-10-22] MEDS: Potassium Chloride 20 MEQ TABCR 40 MEQ PO (08:17)
[2025-10-22] MEDS: Loratidine 10 MG TAB PO (08:18)
[2025-10-22] MEDS: Ezetimibe 10 MG TAB PO (08:18)
[2025-10-22] MEDS: Omeprazole 10 MG CAPCR PO (08:18)
[2025-10-22] MEDS: Spironolactone 25 MG TAB PO ×2 (08:18→20:01)
--- NOTE | 2025-10-22 09:30 | W.PM.PROGNOT ---
Date of Service Date of service: 10/22/25 Time of Service: 09:30 Assessment and Plan Assessment and plan (1) Hepatic encephalopathy: Status: Acute Assessment and plan: Ammonia 108 on admission , clinically improving Ongoing lactulose, with goal of 3 stool /day consider rifaximin 500 mg PO twice daily as secondary Treatment monitor clincal improvement- no NH3 level needed unless condition deteriorates Referral to [place] [facility] [place] (2) SBP (spontaneous bacterial peritonitis): Status: Acute Assessment and plan: as per point 1 in the setting of lactic acidosis which is now improving Covered with ceftriaxone IV initially and , albumin while awaiting paracentesis culture results In the absence of leukocytosis, febrile illness, abdominal pain or discomfort and minimal fluid volume - considering DDX of portal HTN as the etiology of the ascites Surgery consultation: not recommending procedures as per point 3 Negative blood Cx Ceftriaxone discontinued (3) Ascites: Status: Acute Assessment and plan: As per CT scan with the source most likely portal hypertension On spironolactone/ Lasix,- goal (100/40) - transition to oral in AM and continue at home w f/u as per PCP for adjustment Surgical consult ongoing : Dr Truong as per discussion did not find it safe to complete paracentesis with the small amount of fluid- recommending IR drainage if critcal need arise (4) 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: Status: Acute Assessment and plan: History of liver cirrhosis w acute exacerbation with ascites and hepatic encephalopathy with elevated ammonia On lactulose, consider rifaximin 500mg PO twice daily as an additional treatment if no improvement Hepatitis panel (5) Metabolic dysfunction-associated steatotic liver disease (MASLD): Status: Acute Assessment and plan: Previously RODRIGUEZ Dx previously - no ETOH intake since May 2025 [facility] [place] (6) Lactic acidosis: Status: Acute Assessment and plan: lactic 7.0 then 7.8 trending down hold metformin (7) Anasarca: Status: Acute Assessment and plan: Ongoing IV Lasix and aldactone (8) Hypokalemia: Status: Acute Assessment and plan: Supplemented and resolved BMP in the morning (9) Hypomagnesemia: Status: Acute Assessment and plan: resolved Mag 1.0 initially mag in the morning (10) Diabetes: Status: Chronic Assessment and plan: Fingerstick ACHS will hold metformin in the setting of lactic acidosis SSI coverage AC Lantus insulin daily HS - with teaching for home injection (11) Essential hypertension: Status: Chronic Assessment and plan: Discontinue hydrochlorothiazide while on IV Lasix and spironolactone and reassess discharge on Aldactone/ furosemide oral (12) Pleural effusion, right: Status: Acute Assessment and plan: On IV Lasix - no O2 requirement (13) Hyperlipidemia: Status: Chronic Assessment and plan: On home medicine regimen (14) Hypothyroidism: Status: Chronic Assessment and plan: On home meds (15) Cigarette smoker: Status: Chronic Assessment and plan: Nicotine replacement therapy PRN 22.5 pack/year--1/2 pack day now for 45 years Continue outpatient f/u for smoking cessation and LD lung CT (16) On deep vein thrombosis (DVT) prophylaxis: Status: Acute Assessment and plan: Heparin SC Discussed with Dr. Fortune Subjective Subjective Patient reports: no new complaints, feels better, tolerating liquids well, tolerating a regular diet, voiding w/o difficulty, flatus and bowel movement; denies nausea, vomiting, shortness of breath or fever Exam Narrative Exam Narrative: No acute distress , improving icteric sclera,no JVD, alert and oriented x 4, no acute neurological focal deficit, clear lungs, S1-S2 normal PPP x 4, bilateral pitting edema to feet and ankles is improving abdomen is less distended soft nontender, bowel sounds are present Objective Last Vital Signs Temp 36.6 C 10/22/25 07:55 Pulse 95 H 10/22/25 07:55 Resp 17 10/22/25 07:55 BP 114/66 10/22/25 07:55 Pulse Ox 95 10/22/25 07:55 Laboratory Results - last 24 hr 10/21/25 10/21/25 10/21/25 10:32 11:50 11:59 WBC 6.78 RBC 3.43 L Hgb 12.0 Hct 34.2 L MCV 100 H MCH 35.0 H MCHC 35.1 RDW 13.5 Plt Count 126 L MPV 9.4 Immature Gran % 0.1 Neutrophils % 47.5 Lymphocytes % 33.0 Monocytes % 10.8 Eosinophils % 6.5 Basophils % 2.1 Nucleated RBC % 0.0 Absolute Neutrophils 3.22 Absolute Lymphocytes 2.24 Absolute Monocytes 0.73 Absolute Eosinophils 0.44 Absolute Basophils 0.14 PT 13.0 H INR 1.3 H VBG pH VBG pCO2 VBG pO2 VBG HCO3 VBG Total CO2 VBG O2 Saturation VBG Base Excess VBG Lactate 7.0 H* Sodium 136 Potassium 3.3 L Chloride 96 L Carbon Dioxide 23.4 Anion Gap 16.3 H BUN 11 Creatinine 0.53 L Est GFR (CKD-EPI 2020) 117.44 Glucose 158 H Calcium 9.6 Magnesium 1.0 L Total Bilirubin 4.50 H Conjugated Bilirubin 2.0 H AST 63 H ALT 31 Alkaline Phosphatase 182 H Ammonia 108 H Total Protein 7.0 Albumin 3.6 Lipase 45 TSH Urine Color Urine Clarity Urine pH Ur Specific [place] Urine Protein Urine Ketones Urine Blood Urine Nitrite Urine Bilirubin Urine Urobilinogen Ur Leukocyte Esterase Urine Glucose Ethyl Alcohol < 3.0 Add-On Test Request 10/21/25 10/21/25 10/21/25 12:41 13:00 13:17 WBC RBC Hgb Hct MCV MCH MCHC RDW Plt Count MPV Immature Gran % Neutrophils % Lymphocytes % Monocytes % Eosinophils % Basophils % Nucleated RBC % Absolute Neutrophils Absolute Lymphocytes Absolute Monocytes Absolute Eosinophils Absolute Basophils PT INR VBG pH 7.45 H VBG pCO2 38 L VBG pO2 22 VBG HCO3 26 VBG Total CO2 24 VBG O2 Saturation 37 VBG Base Excess 2 VBG Lactate Sodium Potassium Chloride Carbon Dioxide Anion Gap BUN Creatinine Est GFR (CKD-EPI 2020) Glucose Calcium Magnesium Total Bilirubin Conjugated Bilirubin AST ALT Alkaline Phosphatase Ammonia Total Protein Albumin Lipase TSH 1.44 Urine Color Yellow Urine Clarity Clear Urine pH 6.5 Ur Specific [place] 1.015 Urine Protein Negative Urine Ketones Trace H Urine Blood Negative Urine Nitrite Negative Urine Bilirubin Negative Urine Urobilinogen 4.0 H Ur Leukocyte Esterase Negative Urine Glucose Negative Ethyl Alcohol Add-On Test Request DONE 10/21/25 10/21/25 10/22/25 15:12 15:14 05:39 WBC 6.72 RBC 2.92 L Hgb 10.1 L Hct 28.8 L MCV 99 H MCH 34.6 H MCHC 35.1 RDW 13.3 Plt Count 113 L MPV 9.6 Immature Gran % 0.4 Neutrophils % 72.3 Lymphocytes % 15.9 Monocytes % 10.6 Eosinophils % 0.1 Basophils % 0.7 Nucleated RBC % 0.0 Absolute Neutrophils 4.85 Absolute Lymphocytes 1.07 L Absolute Monocytes 0.71 Absolute Eosinophils 0.01 Absolute Basophils 0.05 PT INR VBG pH VBG pCO2 VBG pO2 VBG HCO3 VBG Total CO2 VBG O2 Saturation VBG Base Excess VBG Lactate 7.8 H* Sodium 135 L Potassium 3.6 Chloride 99 Carbon Dioxide 24.1 Anion Gap 11.6 H BUN 12 Creatinine 0.52 L Est GFR (CKD-EPI 2020) 120.05 Glucose 209 H Calcium 9.0 Magnesium 1.7 Total Bilirubin 4.30 H Conjugated Bilirubin AST 50 H ALT 27 Alkaline Phosphatase 117 H Ammonia Total Protein 6.3 Albumin 3.5 Lipase TSH Urine Color Urine Clarity Urine pH Ur Specific [place] Urine Protein Urine Ketones Urine Blood Urine Nitrite Urine Bilirubin Urine Urobilinogen Ur Leukocyte Esterase Urine Glucose Ethyl Alcohol Add-On Test Request DONE VTE Prohylaxis Risk Level: Moderate/High Risk Contraindications: Other (INR 1.3, paracentesis in AM ) Prophylaxis: Patient ambulatory Time Spent with Patient Time Spent with Patient: >50 minutes Time was spent: preparing to see the patient(eg.review tests), obtaining and/or reviewing separately otained hiistory, ordering medications,tests, procedures, referring, communicating with other health healthcare receptionist, indepentently interpreting results, counseling the patient, care coordination and other
--- NOTE | 2025-10-22 09:45 | INITIAL_ITS ---
Date of service: 10/22/25 Time of Service: 09:45 Care Management Initial Assmt Initial Assessment Reason for Hospitalization: cirrhosis, encephalopathy, peritonitis,, anasarca Functional Status/Living Situation Patient Presentation: Idalia was lying in bed when CM met with her. She shared that she has not slept much in the past couple of nights and was hoping to nap. Saadia was admitted with cirrhosis and ascites. She is a bit tachycardic with HR in the low 100s yesterday and mid nineties today. Otherwise, her vital signs are stable and she is afebrile. Idalia lives in a single family home in [place] with her Ailyn. They own land and have many animals which they enjoy. Saadia and her are both retired. 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 She is independent at baseline and does not receive any community services. Idalia did share that her has stage IV cancer. CM provided her with 2 copies of the [place] Advanced Directives forms so that she and Ailyn could complete them, if desired. CM also offered assistance and contact information should they choose to pursue them after discharge. Town of Residence: [place] Resides with: Spouse ( Ailyn) Significant Other/Family: [facility] Employment Status: Retired Instrumental Activities of Daily Living (ADLs): Independent Medications Medication Management: No Issues/Barriers identified Physical Functioning/Mobility Assistive Device: none Advance Directives Advance Directives: Do you have an Advance Directive: N , 07:02 AD On File at [facility]: N 09/22/13, 07:02 Date Asked 10/21/25 Today, 07:39 AD Date Reviewed COLST On File at [facility] COLST Date Scanned Code Status Resuscitation Status Full Code Portal Pt does not currently have a portal and education provided: Yes Insurance Coverage/Financial Issues Insurance: /BS Care Team Visit Care Team Role Provider Type Radha Nguyễn APRN MD [facility] STAFF PHYSICIAN Tiffany Nance NP Primary Care Provider NURSE PRACTITIONER Feli Gusman RDN, CDCES Other Providers CERTIFIED ART THERAPISTART Florentino RDN Other Providers CERTIFIED ART THERAPIST Michel Truong MD Other Providers [facility] STAFF PHYSICIAN DI [place] Emergency Provider PHYSICIANS UNDERWRITING ASSISTANT Deepak Fortune Admit Provider [facility] STAFF PHYSICIAN Attending Provider Discharge Potential Discharge Needs: PCP F/U Appt Anticipated Barriers to Discharge: None Identified Patient/Family Education Needs: Review discharge instructions, discuss Ask Me Three Transportation: Private vehicle Plan: Anticipate Idalia will be discharged home with no new services when medically stable. She will follow up with her PCP and plan of care and transport with her . CM will follow and continue to support discharge planning. 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 Fell and hit head, lost consciousness. Undiagnosed cardiac murmurs (Acute) Neuropathy (Acute) Type 2 diabetes mellitus (Chronic) Nonalcoholic steatohepatitis (RODRIGUEZ) (Chronic) Has both RODRIGUEZ and [place]OU[place] [facility] [place] Alcoholic steatohepatitis (Chronic) Has both RODRIGUEZ and LOUIE per [facility] Essential hypertension (Chronic) Hyperlipidemia (Chronic) Hypothyroidism (Chronic) Cigarette smoker (Chronic) Annual LDCT Osteoarthritis (Chronic) Alcohol abuse (Chronic) 04/2022- 3-4 drinks a day Surgical History S/P right knee arthroscopy (08/31/19) S/P dilatation and curettage S/P appendectomy With subsequent lysis of adhesions x 2 S/P hernia repair (~2006) Bilateral femoral hernia repairs S/P cervical discectomy (07/08/12) With fusion of C5-C6 and C6-C7 for fall off ladder; done at [facility] [place] S/P left breast biopsy benign S/P right rotator cuff repair Family History Mother Essential hypertension Hyperlipidemia Father , at 80 of liver cancer Essential hypertension Depression Hyperlipidemia Liver cancer Type 2 diabetes mellitus Brother Essential hypertension Type 2 diabetes mellitus Maternal Grandfather , in his 40s of [place] Heart disease Myocardial infarction Maternal Grandmother , in her 80s of CHF Heart disease Paternal Grandfather , in his 80s COPD (chronic obstructive pulmonary disease) Heart disease Depression Essential hypertension Paternal Grandmother , at 79 of colon cancer Colon cancer Hypertension Type 2 diabetes mellitus Hyperlipidemia Diabetes Social History (Updated 09/01/25 @ 13:24 by Shirlene Poole) Smoking/Tobacco Use Status: Current every day Tobacco Type: cigarettes Tobacco: How many years used: 42 Quit status: not considering quitting Second Hand Exposure: Yes Smoking risk assessment performed?: Yes Alcohol Intake: former Drug use: Never Substance use type: does not use Adopted: No Caregiver/Support person: No Household members: significant other Housing: house Communication Needs: None Education Level: college Do you need help understanding health information?: Never current occupation: [employer] Pets and animals: Yes Pets and animals: cat(s), dog(s), horse(s) and farm animals Sexually active: No Do you think of yourself as: lesbian/manuel/homosexual Current gender identity: female What is your relationship status?: How often do you talk on the phone with friends or family?: twice per week How often do you get together with friends or relatives?: once per week Do you belong to any clubs or organized social groups?: no Panel score (0-1 are the most socially isolated patients): 2 Sonya/Taoism: No preference Special sonya needs: No Agree to transfusion: Yes Seatbelt use: always Helmet use: Yes Drive intox or ride w/intox bookmobile driver: No Female Reproductive History Menstrual Menopause type: natural History History 0 Para Hx # Term Pregnancies Multiple births Hx # Pregnancies Ectopic pregnancies AB induced Hx Number of Living Children AB spontaneous
[2025-10-22 10:32] LABS: INR 1.5 (0.9-1.1); Prothrombin Time 14.5 sec (9.1-11.1)
[2025-10-22 10:34] LABS: HBs Antibody, Qual Positive (See Note); HBs Antibody, Quant 108.2 mIU/mL (See Note); Hepatitis C Ab w Rflx HCV PCR Negative (Negative)
[2025-10-22] MEDS: ALBUMIN HUMAN 25 GM/100 ML BTL IVPB (10:36)
[2025-10-22] MEDS: Heparin 5,000 UNITS/ML VIAL 5000 UNITS SC ×2 (10:41→23:50)
[2025-10-22 11:41] VITALS: BP 127/72; PULSE 96; RESP 18; TEMP 37; O2SAT 96
[2025-10-22 15:25] VITALS: BP 144/75; PULSE 97; RESP 19; TEMP 36.8; O2SAT 93
[2025-10-22] MEDS: Normal Saline Flush 10 ML SYR IVP ×3 (15:46→23:49)
[2025-10-22 19:08] LABS: Hepatitis A Antibody IgM Negative (Negative); Hepatitis C Ab w Rflx HCV PCR Negative (Negative)
[2025-10-22] MEDS: Insulin Glargine 300 UNITS/3 ML PEN 8 UNITS SC (20:00)
[2025-10-22] MEDS: Lactulose 20 GM/30 ML CUP 30 GM PO (20:01)
[2025-10-22 20:20] VITALS: BP 142/71; PULSE 98; RESP 16; TEMP 36.9; O2SAT 95
[2025-10-22 23:33] VITALS: BP 134/73; PULSE 95; RESP 17; TEMP 37.4; O2SAT 92
[2025-10-23] MEDS: Levothyroxine 75 MCG TAB PO (06:06)
[2025-10-23 06:40] LABS: Abs Immature Grans 0.04 10^3/uL (0.0-0.06); HCT 28.2 % (36.0-46.0); HGB 9.9 g/dL (11.2-15.7); Immature Grans % 0.5 %; MCH 34.7 pg (27.0-33.0); MCHC 35.1 % (32.0-36.0); MCV 99 fL (80-95); MPV 9.4 fL (8.0-11.0); Platelet Count 108 10^3/uL (130-400); RBC 2.85 10^6/uL (3.93-5.22); RDW 13.3 % (11.7-14.6); RDW-SD 48.6 fL; WBC 8.41 10^3/uL (4.4-10.8)
[2025-10-23 07:08] LABS: ALT 37 U/L (10-49); AST 79 U/L (<34); Albumin 3.4 g/dL (3.2-5.0); Alkaline Phosphatase 151 U/L (46-116); Anion Gap 12.1 mmol/L (3-11); BUN 8 mg/dL (9-23); Bilirubin, Total 3.50 mg/dL (0.2-1.2); CO2 24.9 mmol/L (20.0-31.0); Calcium 8.5 mg/dL (8.3-10.6); Chloride 102 mmol/L (98-107); Glucose 187 mg/dL (74-106); Potassium 3.1 mmol/L (3.5-5.1); Sodium 139 mmol/L (136-145); Total Protein 6.2 g/dL (5.7-8.2)
[2025-10-23 07:30] VITALS: BP 145/76; PULSE 91; RESP 16; TEMP 37.2; O2SAT 93
[2025-10-23] MEDS: Lactulose 20 GM/30 ML CUP 30 GM PO (07:45)
[2025-10-23] MEDS: Lisinopril 10 MG TAB 5 MG PO (07:46)
[2025-10-23] MEDS: Ezetimibe 10 MG TAB PO (07:46)
[2025-10-23] MEDS: Omeprazole 10 MG CAPCR PO (07:47)
[2025-10-23] MEDS: Furosemide 20 MG TAB 10 MG PO (07:48)
[2025-10-23] MEDS: Insulin Aspart 300 UNITS/3 ML PEN SC (07:48)
[2025-10-23] MEDS: Normal Saline Flush 10 ML SYR IVP (07:48)
[2025-10-23] MEDS: Potassium Chloride 20 MEQ TABCR 40 MEQ PO (07:51)
[2025-10-23] MEDS: Loratidine 10 MG TAB PO (07:51)
[2025-10-23] MEDS: Spironolactone 25 MG TAB PO (08:01)
--- NOTE | 2025-10-23 11:28 | PDOC.CMDIS ---
Date of service: 10/23/25 Time of Service: 11:54 LACE Index Scoring Tool Questions: Length of Stay (in days): 2 Was the patient admitted via the E.D.?: Yes E.D. Visits: 1 Answers: Total Score: 6 Risk of Readmission: Low Risk Care Management Discharge Plan Reason for Hospitalization: cirrhosis, encephalopathy, peritonitis,, anasarca Discharge Plan: Idalia will be discharged home with no new services today. It is recommended she follow up with her community providers, and continue per her discharge plan of care. Idalia will transport with her . Patient/Family Education Needs: Review of discharge instructions, activity, limitations, and plan of care. Discuss ask me three.
--- NOTE | 2025-10-23 11:35 | DSE_ITS ---
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: Status: Acute (5) Metabolic dysfunction-associated steatotic liver disease (MASLD): Status: Acute (6) Lactic acidosis: Status: Acute (7) Anasarca: Status: Acute (8) Hypokalemia: Status: Acute (9) Hypomagnesemia: Status: Acute (10) Diabetes: Status: Chronic (11) Essential hypertension: Status: Chronic (12) Pleural effusion, right: Status: Acute (13) Hyperlipidemia: Status: Chronic (14) Hypothyroidism: Status: Chronic (15) Cigarette smoker: Status: Chronic Discharge Plan Disposition Patient Disposition: Home Condition: Improving Discharge Details Reason For Visit: Cirrhosis,Hepatic Encephalopathy,Acistes, Anasarca Admit Date/Time: 10/21/25 15:07 Admit Provider: Deepak Fortune Attending Provider: Deepak Fortune [facility] Hospital Course: This is a 60-year-old female patient past medical history significant for angela betes mellitus type 2, cirrhosis who presented to the emergency department after being directed by her primary care provider after findings on an outpatient ultrasound. Workup in the emergency department did show ascites on her CAT scan. Surgical consult was obtained and per bedside POCUS exam no significant pockets identified so a diagnostic paracentesis was not recommended. The ascites is thought to be due to to portal hypertension in the setting of cirrhosis but patient was empirically started on ceftriaxone to cover for an SBP. She remained hemodynamically stable and afebrile. Blood cultures remain negative. She was started on Lantus for better blood sugar management. She also was started on Lasix and spironolactone. Her potassium level was slightly low in the low 3.1 and she did receive some supplemental potassium while hospitalized but as she is being discharged on spironolactone it was thought she should follow-up with her primary care provider to see if additional potassium would be required. She was eating and drinking and bowels and bladder functioning and she was feeling much improved. She has no abdominal pain to suggest spontaneous bacterial peritonitis so antibiotics not ordered at discharge. She should follow-up with her primary care provider or return sooner for new or worsening symptoms. Blood sugar monitoring equipment and insulin therapy supplies have been sent to her pharmacy. She will follow-up outpatient with her primary care provider for lab recheck and further medication adjustments. Discharge discussed with Dr. Larissa Doherty and New Rx's Prescriptions: New spironolactone 25 mg Tablet 25 mg PO BID Qty: 60 0RF lactulose 10 gram/15 mL Solution 30 g PO BID Qty: 900 0RF insulin glargine [Lantus Solostar U-100 Insulin] 100 unit/mL (3 mL) Insulin Pen 8 unit SC HS Qty: 9 0RF insulin aspart U-100 100 unit/mL (3 mL) Insulin Pen 0 unit SC 0800,1200,1700 Qty: 9 0RF furosemide 20 mg Tablet 10 mg PO BID@0830,1600 Qty: 60 0RF Continued loratadine 10 mg tablet 10 mg PO DAILY albuterol sulfate 90 mcg/actuation HFA aerosol inhaler 2 puff Inhalation Q6H PRN (Reason: shortness of breath or wheezing) Qty: 8.5 4RF (DME) FreeStyle Gal 2 Plus Sensor Device See Rx Instructions .Route Qty: 3 3RF Rx Instructions: As directed (DME) FreeStyle Gal 2 [place] Misc See Rx Instructions .Route Qty: 1 0RF Rx Instructions: As directed ezetimibe [Zetia] 10 mg tablet 10 mg PO DAILY Qty: 90 3RF lisinopril 10 mg tablet 10 mg PO DAILY Qty: 90 3RF Rx Instructions: Take 1 tablet daily Prilosec 2.5 mg susp,delayed release for recon 10 mg PO ONCE (DME) lancets [BD Ultra-Fine II Lancets] 30 gauge misc See Rx Instructions .ROUTE .MEDSUPPLY Qty: 100 4RF Rx Instructions: Check blood sugar twice a day (DME) nebulizers [Aeroneb Go Nebulizer] Misc See Rx Instructions .ROUTE .MEDSUPPLY Qty: 1 4RF Rx Instructions: Use with duoneb inhaler every 6 hours as needed for wheezing metformin 500 mg tablet extended release 24 hr 1,000 mg PO BID Qty: 360 3RF amitriptyline 25 mg tablet 25 mg PO QHS Qty: 60 3RF levothyroxine 75 mcg tablet 75 mcg PO DAILY Qty: 90 3RF levothyroxine 100 mcg tablet 75 mcg PO DAILY Patient Comments: TAKE ONE TABLET BY MOUTH EVERY DAY Discontinued hydrochlorothiazide 25 mg tablet 12.5 mg PO DAILY Patient Comments: TAKE ONE TABLET BY MOUTH EVERY DAY Discharge Instructions Instructions: Type 2 diabetes, Blood Glucose Monitoring Additional Instructions: sliding scale coverage before meals: If blood sugar:< < 140 no aspart 140-180 2 units of aspart 181-220 4 units 221-260 6 units 261-300 8 units 301-340 10 units > 341 12 units and call MD Stand Alone Forms: Portal Information Referrals: Tiffany Nance NP [Primary Care Provider, Medicine] Referral Note: 1 week follow up with primary care provider Activity:: Activity as Tolerated Equipment/Supplies:: Blood Glucose Monitor Diet:: Carb Counting Discharge Orders Discharge Orders: Discharge Order (Routine); Ordered 10/23/25 Ordered By: Huong Singer Discharge Data Discharge Date/Time-TO BE ENTERED AT DEPARTURE: 10/23/25 12:19 DS: Summary Time Spent with Patient providing and/or coordinating discharge services: Less than 30 minutes Status at Discharge Functional status at discharge: independent ambulation Overall status at discharge: patient is progressing back to baseline Mental Status: mental status grossly normal Speech and Movement: speech and movement normal Mood: congruent mood Affect: normal affect Exam Narrative Exam Narrative: White female of stated age no acute distress head is atraumatic eyes nonicteric noninjected oral mucosa is moist neck is supple neurologic she is awake alert oriented no focal deficits neck full range of motion no JVD cardiovascular regular rate and rhythm respirations even and unlabored abdomen round soft nontender moves all extremities equally psychiatric appropriate mood and affect Psych Mental Status: mental status grossly normal Speech and Movement: speech and movement normal Mood: congruent mood Affect: normal affect DS: Data Vitals/I&O Vitals and I&O: Vital Signs Temperature 37.2 C 10/23/25 07:30 Temperature Source Temporal Artery Scan 10/23/25 07:30 Pulse 91 H 10/23/25 07:30 Pulse Rhythm Regular 10/21/25 16:41 Pulse 107 H 10/21/25 14:41 Respiratory Rate 16 10/23/25 07:30 Respiratory Effort Normal, Non-Labored 10/21/25 16:41 Respiratory Depth Normal 10/21/25 16:41 Respiratory Pattern Normal 10/21/25 16:41 Blood Pressure 145/76 H 10/23/25 07:30 Blood Pressure Mean 99 10/23/25 07:30 Pulse Oximetry 93 10/23/25 07:30 Oxygen Delivery Method Room Air 10/23/25 07:30 Oxygen Flow Rate 0 10/23/25 07:30 Pain Level 1 10/23/25 08:00 Intake & Output 10/22/25 10/22/25 10/23/25 11:59 23:59 11:59 Intake Total 730 / 1710 980 / 1710 70 / 70 Balance 730 / 1710 980 / 1710 70 / 70 Weight 86.835 kg 85 kg Intake: IV 250 / 270 20 / 270 70 / 70 Oral 480 / 1440 960 / 1440 Other: Urine Color Pale Pale Yellow Yellow Urine Appearance Clear Clear Urine Odor Normal Normal Comment Pt voids independently Data Completed and Pending Pending Labs at Discharge: 10/21/25 10/21/25 10/21/25 10:32 11:50 11:59 WBC 6.78 RBC 3.43 L Hgb 12.0 Hct 34.2 L MCV 100 H MCH 35.0 H MCHC 35.1 RDW 13.5 Plt Count 126 L MPV 9.4 Immature Gran % 0.1 Neutrophils % 47.5 Lymphocytes % 33.0 Monocytes % 10.8 Eosinophils % 6.5 Basophils % 2.1 Nucleated RBC % 0.0 Absolute Neutrophils 3.22 Absolute Lymphocytes 2.24 Absolute Monocytes 0.73 Absolute Eosinophils 0.44 Absolute Basophils 0.14 PT 13.0 H INR 1.3 H VBG pH VBG pCO2 VBG pO2 VBG HCO3 VBG Total CO2 VBG O2 Saturation VBG Base Excess VBG Lactate 7.0 H* Sodium 136 Potassium 3.3 L Chloride 96 L Carbon Dioxide 23.4 Anion Gap 16.3 H BUN 11 Creatinine 0.53 L Est GFR (CKD-EPI 2020) 117.44 Glucose 158 H Calcium 9.6 Magnesium 1.0 L Total Bilirubin 4.50 H Conjugated Bilirubin 2.0 H AST 63 H ALT 31 Alkaline Phosphatase 182 H Ammonia 108 H Total Protein 7.0 Albumin 3.6 Lipase 45 TSH Urine Color Urine Clarity Urine pH Ur Specific [place] Urine Protein Urine Ketones Urine Blood Urine Nitrite Urine Bilirubin Urine Urobilinogen Ur Leukocyte Esterase Urine Glucose Alcohol Metab Comm Ethyl Alcohol < 3.0 PEth 16:0/18.1 (POPEth) PEth 16:0/18.2 (PLPEth) Hepatitis A IgM Ab Hep Bs Antigen Pending Hep Bs Antibody Pending Hep Bs Antibody, Quant Pending Hep B Core Total Ab Pending Hepatitis C Antibody Pending Add-On Test Request 10/21/25 10/21/25 10/21/25 12:41 13:00 13:17 WBC RBC Hgb Hct MCV MCH MCHC RDW Plt Count MPV Immature Gran % Neutrophils % Lymphocytes % Monocytes % Eosinophils % Basophils % Nucleated RBC % Absolute Neutrophils Absolute Lymphocytes Absolute Monocytes Absolute Eosinophils Absolute Basophils PT INR VBG pH 7.45 H VBG pCO2 38 L VBG pO2 22 VBG HCO3 26 VBG Total CO2 24 VBG O2 Saturation 37 VBG Base Excess 2 VBG Lactate Sodium Potassium Chloride Carbon Dioxide Anion Gap BUN Creatinine Est GFR (CKD-EPI 2020) Glucose Calcium Magnesium Total Bilirubin Conjugated Bilirubin AST ALT Alkaline Phosphatase Ammonia Total Protein Albumin Lipase TSH 1.44 Urine Color Yellow Urine Clarity Clear Urine pH 6.5 Ur Specific [place] 1.015 Urine Protein Negative Urine Ketones Trace H Urine Blood Negative Urine Nitrite Negative Urine Bilirubin Negative Urine Urobilinogen 4.0 H Ur Leukocyte Esterase Negative Urine Glucose Negative Alcohol Metab Comm Ethyl Alcohol PEth 16:0/18.1 (POPEth) PEth 16:0/18.2 ([facility]) Hepatitis A IgM Ab Hep Bs Antigen Hep Bs Antibody Hep Bs Antibody, Quant Hep B Core Total Ab Hepatitis C Antibody Add-On Test Request DONE 10/21/25 10/21/25 10/22/25 15:12 15:14 05:39 WBC 6.72 RBC 2.92 L Hgb 10.1 L Hct 28.8 L MCV 99 H MCH 34.6 H MCHC 35.1 RDW 13.3 Plt Count 113 L MPV 9.6 Immature Gran % 0.4 Neutrophils % 72.3 Lymphocytes % 15.9 Monocytes % 10.6 Eosinophils % 0.1 Basophils % 0.7 Nucleated RBC % 0.0 Absolute Neutrophils 4.85 Absolute Lymphocytes 1.07 L Absolute Monocytes 0.71 Absolute Eosinophils 0.01 Absolute Basophils 0.05 PT INR VBG pH VBG pCO2 VBG pO2 VBG HCO3 VBG Total CO2 VBG O2 Saturation VBG Base Excess VBG Lactate 7.8 H* Sodium 135 L Potassium 3.6 Chloride 99 Carbon Dioxide 24.1 Anion Gap 11.6 H BUN 12 Creatinine 0.52 L Est GFR (CKD-EPI 2020) 120.05 Glucose 209 H Calcium 9.0 Magnesium 1.7 Total Bilirubin 4.30 H Conjugated Bilirubin AST 50 H ALT 27 Alkaline Phosphatase 117 H Ammonia Total Protein 6.3 Albumin 3.5 Lipase TSH Urine Color Urine Clarity Urine pH Ur Specific [place] Urine Protein Urine Ketones Urine Blood Urine Nitrite Urine Bilirubin Urine Urobilinogen Ur Leukocyte Esterase Urine Glucose Alcohol Metab Comm Pending Ethyl Alcohol PEth 16:0/18.1 (POPEth) Pending PEth 16:0/18.2 (PLPEth) Pending Hepatitis A IgM Ab Hep Bs Antigen Hep Bs Antibody Hep Bs Antibody, Quant Hep B Core Total Ab Hepatitis C Antibody Add-On Test Request DONE 10/22/25 10/23/25 10:10 06:12 WBC 8.41 RBC 2.85 L Hgb 9.9 L Hct 28.2 L MCV 99 H MCH 34.7 H MCHC 35.1 RDW 13.3 Plt Count 108 L MPV 9.4 Immature Gran % 0.5 Neutrophils % 61.5 Lymphocytes % 19.9 Monocytes % 9.5 Eosinophils % 7.3 Basophils % 1.3 Nucleated RBC % 0.0 Absolute Neutrophils 5.18 Absolute Lymphocytes 1.67 Absolute Monocytes 0.80 Absolute Eosinophils 0.61 Absolute Basophils 0.11 PT 14.5 H INR 1.5 H VBG pH VBG pCO2 VBG pO2 VBG HCO3 VBG Total CO2 VBG O2 Saturation VBG Base Excess VBG Lactate 6.3 H* Sodium 139 Potassium 3.1 L Chloride 102 Carbon Dioxide 24.9 Anion Gap 12.1 H BUN 8 L Creatinine 0.58 Est GFR (CKD-EPI 2020) 105.83 Glucose 187 H Calcium 8.5 Magnesium Total Bilirubin 3.50 H Conjugated Bilirubin AST 79 H ALT 37 Alkaline Phosphatase 151 H Ammonia Total Protein 6.2 Albumin 3.4 Lipase TSH Urine Color Urine Clarity Urine pH Ur Specific [place] Urine Protein Urine Ketones Urine Blood Urine Nitrite Urine Bilirubin Urine Urobilinogen Ur Leukocyte Esterase Urine Glucose Alcohol Metab Comm Ethyl Alcohol PEth 16:0/18.1 (POPEth) PEth 16:0/18.2 (PLPEth) Hepatitis A IgM Ab Pending Hep Bs Antigen Pending Hep Bs Antibody Hep Bs Antibody, Quant Hep B Core Total Ab Pending Hepatitis C Antibody Pending Add-On Test Request Preliminary micro results at discharge 10/21/25 11:58 Blood Blood Culture - Preliminary NO GROWTH 24 HOURS 10/21/25 12:00 Blood Blood Culture - Preliminary NO GROWTH 24 HOURS PFSH All Active Problems Metabolic dysfunction-associated steatotic liver disease (MASLD) (Acute) Diabetes (Chronic) SBP (spontaneous bacterial peritonitis) (Acute) Lactic acidosis (Acute) 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 Fell and hit head, lost consciousness. Undiagnosed cardiac murmurs (Acute) Neuropathy (Acute) Type 2 diabetes mellitus (Chronic) Nonalcoholic steatohepatitis (RODRIGUEZ) (Chronic) Has both R[place]RIGUEZ [place] [facility] [place] Alcoholic steatohepatitis (Chronic) Has both RODRIGUEZ and [place] [facility] [place] Essential hypertension (Chronic) Hyperlipidemia (Chronic) Hypothyroidism (Chronic) Cigarette smoker (Chronic) Annual LDCT Osteoarthritis (Chronic) Alcohol abuse (Chronic) 04/2022- 3-4 drinks a day Surgical History S/P right knee arthroscopy (08/31/19) S/P dilatation and curettage S/P appendectomy With subsequent lysis of adhesions x 2 S/P hernia repair (~2006) Bilateral femoral hernia repairs S/P cervical discectomy (07/08/12) With fusion of C5-C6 and C6-C7 for fall off ladder; [place] [facility] [place] S/P left breast biopsy benign S/P right rotator cuff repair Family History Mother Essential hypertension Hyperlipidemia Father , at 80 of liver cancer Essential hypertension Depression Hyperlipidemia Liver cancer Type 2 diabetes mellitus Brother Essential hypertension Type 2 diabetes mellitus Maternal Grandfather , in his 40s of [place] Heart disease Myocardial infarction Maternal Grandmother , in her 80s of CHF Heart disease Paternal Grandfather , in his 80s COPD (chronic obstructive pulmonary disease) Heart disease Depression Essential hypertension Paternal Grandmother , at 79 of colon cancer Colon cancer Hypertension Type 2 diabetes mellitus Hyperlipidemia Diabetes Social History (Updated 09/01/25 @ 13:24 by Shirlene Poole) Smoking/Tobacco Use Status: Current every day Tobacco Type: cigarettes Tobacco: How many years used: 42 Quit status: not considering quitting Second Hand Exposure: Yes Smoking risk assessment performed?: Yes Alcohol Intake: former Drug use: Never Substance use type: does not use Adopted: No Caregiver/Support person: No Household members: significant other Housing: house Communication Needs: None Education Level: college Do you need help understanding health information?: Never current occupation: [employer] Pets and animals: Yes Pets and animals: cat(s), dog(s), horse(s) and farm animals Sexually active: No Do you think of yourself as: lesbian/manuel/homosexual Current gender identity: female What is your relationship status?: How often do you talk on the phone with friends or family?: twice per week How often do you get together with friends or relatives?: once per week Do you belong to any clubs or organized social groups?: no Panel score (0-1 are the most socially isolated patients): 2 Sonya/Sabianism: No preference Special sonya needs: No Agree to transfusion: Yes Seatbelt use: always Helmet use: Yes Drive intox or ride w/intox cdl driver: No Female Reproductive History Menstrual Menopause type: natural History History 0 Para Hx # Term Pregnancies Multiple births Hx # Pregnancies Ectopic pregnancies AB induced Hx Number of Living Children AB spontaneous Time Spent with Patient Time Spent with Patient: <45 minutes Time was spent: preparing to see the patient(eg.review tests), obtaining and/or reviewing separately otained hiistory, ordering medications,tests, procedures and counseling the patient
--- NOTE | 2025-10-24 05:49 | W.NUTRFU ---
Date of service: 10/23/25 Time of Service: 09:00 Nutrition Note NOTE: Had visited pt yesterday as well as Saturday to discuss diet. Her partner at home present at visit and does most of the cooking. Idalia experiencing higher than usual glucose this admission and most likely for some recent time as her A1C climbed to 9.1% the end of this last August. Undoubtedly complicated by cirrhosis. Discharged on Lantus. Takes metformin at home. Reviewed higher protein diet with ascites but also want to manage ammonia levels by avoiding excess - suggested 1.2g/kg of Adjusted body weight ~ 84g protein suggested but highlighted plant protein and lean sources from animals. She does like sweets at home and suggested a healthy goal of <40grams per day of added sugar by reading labels. Gave outpatient contact for more in-depth diabetes education/guidance if interested. Idalia said she may call once past the holidays. Time Spent in Nutritional Counseling and Treatment: 10
[2025-10-25 08:46] LABS: PEth 16:0/18:1(POPEth) <10 ng/mL (Cutoff: 10); PEth 16:0/18:2(PLPEth) <10 ng/mL (Cutoff: 10)
== END 2025-10-23 12:19 | disposition home or self-care (01) | DRG 442 ==
LOC: ER 15:10 → MS 16:39
PROVIDERS: Nurse Practitioner Acute Care; Admitting Provider Family Medicine; Emergency Provider Physician Assistant; PCP Nurse Practitioner Family; Responsible Provider Nurse Practitioner Acute Care; Visit Provider Family Medicine
DX: K76.82 Hepatic encephalopathy (principal); E87.20 Acidosis, unspecified; K76.6 Portal hypertension; K74.69 Other cirrhosis of liver; R60.1 Generalized edema; E83.42 Hypomagnesemia; E87.6 Hypokalemia; I10 Essential (primary) hypertension; E03.9 Hypothyroidism, unspecified; E78.5 Hyperlipidemia, unspecified; F17.210 Nicotine dependence, cigarettes, uncomplicated; Z79.899 Other long term (current) drug therapy; E11.40 Type 2 diabetes mellitus with diabetic neuropathy, unspecified; F10.11 Alcohol abuse, in remission; K75.81 Nonalcoholic steatohepatitis (NASH); Z79.4 Long term (current) use of insulin; D69.6 Thrombocytopenia, unspecified; M48.00 Spinal stenosis, site unspecified; R26.81 Unsteadiness on feet
CPT/HCPCS: 00123; 36415; 80053; 80321; 82805; 83690; 86704; 86706; 86709; 86803; 87040; 87340; 93005; 96361; 96365; 96375; 99285; 71046; 74177; 80320; 81003; 82140; 82248; 83605; 83735; 84443; 85025; 85610; 93010; 99223; 99233; 99238; J0696; J1200; J1644; J1815; J1938; J2919; J3475; J3490; P9047

== ENCOUNTER → 2025-11-09 00:19 | Outpatient (CLI) | payer BC, SELFPAY ==
--- NOTE | 2025-11-09 10:47 | DI.MAMMO_ITS ---
Exam(s) MAMMO SCREENING EXAM: MAMMO SCREENING CLINICAL HISTORY: screening,z12.39 TECHNIQUE: Bilateral full field digital CC and MLO mammographic images were obtained with 3D tomosynthesis and utilizing computer aided detection (CAD). COMPARISON: There are no priors for comparison. FINDINGS: Masses/Architectural Distortion: No suspicious masses or areas of architectural distortion are present. Microcalcifications: No suspicious pleomorphic-type are seen. Skin Thickening/Nipple Retraction: None. IMPRESSION: 1. There is no evidence for malignancy seen at this time. 2. Unless there is more urgent need, screening mammography is recommended, as per [employer] guidelines. BI-RADS Category 1 - Negative Breast Density - Category C - The breast are heterogeneously dense, which may obscure small masses. Breast density Category C or D implies that the patient has dense breast tissue. Dense breast tissue can make it harder to find cancer on a mammogram. Dense breast tissue is also associated with an increased risk of breast cancer. This information about the result of the mammogram report was provided to the patient to raise their awareness. Use this report when you speak with the patient about their risks for breast cancer, which includes their family history. At that time, you may recommend additional screening tests (Ultrasound or MRI) as these tests may add significant information. A negative radiographic report should not delay biopsy if a dominant or clinically suspicious mass is present. Up to ten percent of cancers are not identified on mammography. A negative report may reinforce clinical impression. Adenosis and dense breasts may obscure an underlying neoplasm. False positive reports average 6 to 10%. Patient will receive a letter notifying them of these results.
== END ==
LOC: DI 00:19
PROVIDERS: PCP Nurse Practitioner Family; Visit Provider Nurse Practitioner Family
DX: Z12.31 Encounter for screening mammogram for malignant neoplasm of breast (principal); R92.323 Mammographic fibroglandular density, bilateral breasts
CPT/HCPCS: 77063; 77067